=== PATIENT | male | born 1950 | race Caucasian/White ===

== ENCOUNTER 2020-12-24 16:35 | Emergency (ER) | payer MEDICARE, SELFPAY ==
--- NOTE | 2020-12-24 | ECG_ITS ---
Test Reason : REPEAT 2 Blood Pressure : / mmHG Vent. Rate : 077 BPM Atrial Rate : 077 BPM P-R Int : 222 ms QRS Dur : 116 ms QT Int : 420 ms P-R-T Axes : 000 -04 018 degrees QTc Int : 475 ms Atrial flutter 3:1 block Anterior infarct (cited on or before 24-DEC-2020) Abnormal ECG When compared with ECG of 24-DEC-2020 16:55, No significant change was found Referred By: Maria Esther Brown Electronically Signed By:Gerald Santiago
--- NOTE | ~2020-12-24 | XR_ITS ---
EXAMINATION: XR RIBS, LEFT CLINICAL INFORMATION: Chest pain. Fall on left side of chest COMPARISON: None TECHNIQUE: Frontal view of chest 4 views of the left ribs were obtained. FINDINGS: Lungs are clear. No consolidation, pneumothorax, or pleural effusion. The cardiomediastinal silhouette and pulmonary vasculature are normal. Osseous structures are unremarkable. Ribs are intact. No fractures are identified. XR/XR ribs LT min 3V w CXR1V IMPRESSION: Unremarkable examination.
[2020-12-24 16:40] VITALS: BP 138/65; PULSE 76; RESP 18; TEMP 36.6; O2SAT 99; BMI 30.8
--- NOTE | 2020-12-24 16:40 | ECG_ITS ---
Test Reason : CHEST PAIN Blood Pressure : / mmHG Vent. Rate : 072 BPM Atrial Rate : 234 BPM P-R Int : 000 ms QRS Dur : 120 ms QT Int : 430 ms P-R-T Axes : -84 -13 026 degrees QTc Int : 470 ms Atrial flutter with variable A-V block Normal axis Poor R wave progression - cannot rule out anterior infarct. Abnormal ECG No previous ECGs available Referred By: Floresita Grayson Electronically Signed By:Gerald Santiago
--- NOTE | 2020-12-24 16:42 | ED_ITS ---
HPI - Chest Pain General Chief Complaint: Chest Pain <MER El - Last Filed: 12/24/20 16:56> Stated Complaint: chest pain <MER El - Last Filed: 12/24/20 16:56> Time Seen by Provider: 12/24/20 16:39 <MER El - Last Filed: 12/24/20 16:56> Source: patient and family <Maria Esther Brown DO - Last Filed: 12/24/20 20:50> Mode of arrival: ambulatory <Maria Esther Brown DO - Last Filed: 12/24/20 20:50> Limitations: no limitations <Maria Esther Brown DO - Last Filed: 12/24/20 20:50> History of Present Illness HPI narrative: 70 yo male with afib on xarelto, DM, schizophrenia here with L sided CWP after mechanical fall 2 days ago has no SOB/nausea, no other injuries reported <Maria Esther Brown DO - Last Filed: 12/24/20 20:50> MD complaint: chest pain <Maria Esther Brown DO - Last Filed: 12/24/20 20:50> Onset (ago): day(s) (2) <Maria Esther Brown DO - Last Filed: 12/24/20 20:50> Timing of current episode: constant <Maria Esther Brown DO - Last Filed: 12/24/20 20:50> Prior episodes: No <Maria Esther Brown DO - Last Filed: 12/24/20 20:50> Onset: other (after a fall onto L ribs) <Maria Esther Brown DO - Last Filed: 12/24/20 20:50> Pain location: left chest <Maria Esther Brown DO - Last Filed: 12/24/20 20:50> Pain radiation: none <Maria Esther Brown DO - Last Filed: 12/24/20 20:50> Severity: moderate <Maria Esther Brown DO - Last Filed: 12/24/20 20:50> Quality: aching and heaviness <Maria Esther Brown DO - Last Filed: 12/24/20 20:50> Relieving factors: nothing <Maria Esther Brown DO - Last Filed: 12/24/20 20:50> Exacerbating factors: movement (if he tries to move particularly if he is laying down) <Maria Esther Brown DO - Last Filed: 12/24/20 20:50> Context: trauma/injury <Maria Esther Brown DO - Last Filed: 12/24/20 20:50> Treatment prior to arrival: none <Maria Esther Brown DO - Last Filed: 12/24/20 20:50> Related Data Allergies/Adverse Reactions: Allergies Allergy/AdvReac Type Severity Reaction Status Date / Time No Known Allergies Allergy Verified 12/24/20 16:40 <MER El - Last Filed: 12/24/20 16:56> Review of Systems Review of Systems: Constitutional : No Weight loss, No Fever, No Chills ENT/Mouth : No sore throat, No Rhinorrhea Eyes: No Eye Pain, No Swelling Cardiovascular : pos Chest Pain, no SOB, no Dyspnea on Exertion, No Orthopnea, No Edema, No Palpitations Respiratory : No Cough, No Sputum Gastrointestinal : no Nausea, No Vomiting, No Diarrhea, No abdominal Pain, No Hematochezia, No Melena Genitourinary : No Dysuria, No Urinary Frequency Musculoskeletal : No joint pain, No Myalgias, No Joint Swelling Skin : No Skin Lesions, No rash Neuro : No Weakness, No Numbness, No Dizziness, No Headache Psych : No Anxiety/Panic, No Depression Heme/Lymph: No Bruising, No Lymphadenopathy Endocrine : No Polyuria, No Polydipsia All other systems reviewed and are negative <Maria Esther Brown DO - Last Filed: 12/24/20 20:50> [facility] Past Medical History Attestation statement: The following information was validated with the patient. <Maria Esther Brown DO - Last Filed: 12/24/20 20:50> Medical History: Medical History Afib Diabetes type 2, controlled Schizophrenia <MER El - Last Filed: 12/24/20 16:56> Social History Social History: Social History (Updated 12/24/20 @ 17:09 by Maria Esther Brown DO) Alcohol intake: never Smoking Status: Never smoker Use of substances other than those prescribed or required for medical reasons: No Advance Directives: No Advance Directives Information Provided: No <MER El - Last Filed: 12/24/20 16:56> Physical Exam Vital Signs: Vital Signs: Last Vital Signs Temp 98.1 F 12/24/20 19:57 Pulse 62 12/24/20 19:57 Resp 18 12/24/20 19:57 BP 124/86 12/24/20 19:57 Pulse Ox 98 12/24/20 19:57 Body Mass Index 30.8 <MER El - Last Filed: 12/24/20 16:56> Vital Signs: Last Vital Signs Temp 98.1 F 12/24/20 19:57 Pulse 62 12/24/20 19:57 Resp 18 12/24/20 19:57 BP 124/86 12/24/20 19:57 Pulse Ox 98 12/24/20 19:57 Body Mass Index 30.8 <Maria Esther Brown DO - Last Filed: 12/24/20 20:50> Appearance: Alert. Oriented X3. No acute distress. Eyes: Pupils equal, round and reactive to light. ENT: Pharynx normal. Neck: Normal inspection. Neck supple. CVS: irregular heart rate and rhythm. Pulses normal. Respiratory: No respiratory distress. Breath sounds normal. Chest: small contusion left lateral ribs, ttp along L chest wall that reproduces pain Abdomen: Soft and nontender. Skin: Skin warm and dry. Normal skin color. Normal skin turgor. Extremities: No lower extremity edema. No calf ttp Neuro: Oriented X 3. No motor deficit. No sensory deficit. <Maria Esther Brown DO - Last Filed: 12/24/20 20:50> Course Course Course Narrative: 70yo M w/PMHx schizophrenia, A. fib on Xarelto, DM, HLD, c/o L sided CP/LUQ pain x2 days. Hx obtained from , also had fall 2 days ago on L side, denies head trauma or LOC. EKG, Labs, CXR ordered This is a rapid medical assessment in triage. Full H&P will be performed by ED provider EKG concerning in triage, pt brought back immediately to main ED <MER El Last Filed: 12/24/20 16:56> call to Cardiology Dr. Santiago 5pm no STEMI at this time will obtain workup and repeat EKG in 15 minutes repeat troponin flat at this time stable for DC <Maria Esther Brown DO - Last Filed: 12/24/20 20:50> MDM - Chest Pain MDM Narrative Medical decision making narrative: 70 yo male with DM, afib on xarelto, schizophrenia comes in with 2 days of L sided CWP after falling and hitting ribs, no associated dyspnea/nausea, compl iant with his xarelto - he has reproduceable CWP at this time will need labs, call to Cardiology given abnormal EKG but I am not convinced this is a STEMI but seems more MSK at this time. troponin will be needed for 2 days of pain <Maria Esther Brown DO - Last Filed: 12/24/20 20:50> Lab Data Result diagrams: : 12/24/20 16:58 12/24/20 16:58 <MER El - Last Filed: 12/24/20 16:56> Labs: Lab Results 12/24/20 12/24/20 12/24/20 Range/Units 16:58 16:58 16:58 WBC 6.6 (4.8-10.8) X10*3/uL RBC 4.77 (4.60-5.80) X10*6/uL Hgb 13.7 L (14.0-18.0) g/dl Hct 41.2 L (42-52) % MCV 86.4 (80-98) fL MCH 28.7 (27.0-33.0) pg MCHC 33.3 (31.0-36.0) g/dl RDW 13.2 (11.0-16.0) % Plt Count 170 (160-400) X10*3/uL MPV 9.0 L (9.4-12.4) fL Immature Gran % (Auto) 0.3 (0.0-0.4) % Neut % (Auto) 58.3 (45-73) % Lymph % (Auto) 27.6 (20-40) % [place] % (Auto) 10.9 (2-11) % Eos % (Auto) 2.6 (0-4) % Baso % (Auto) 0.3 (0-2) % Lymph # (Auto) 1.8 (1.2-4.9) X10*3/uL [place] # (Auto) 0.7 (0.1-1.2) X10*3/uL Eos # (Auto) 0.2 (0.0-0.4) X10*3/uL Baso # (Auto) 0.0 (0.0-0.2) X10*3/uL Abs Immat Gran (auto) 0.02 (0.00-0.03) X10*3/uL Absolute Neuts (auto) 3.8 (2.0-8.3) X10*3/uL Absolute Nucleated RBC 0.000 (0.0-0.012) X10*3/uL Nucleated RBC % (auto) 0.0 (0.0-0.2) /100WBC PT 15.2 H (10.8-13.0) SEC INR 1.3 H (0.9-1.1) APTT 36.9 (24.1-38.0) SEC Sodium 139 (135-145) mmol/L Potassium 4.7 (3.3-5.1) mmol/L Chloride 107 (96-108) mmol/L Carbon Dioxide 24 (22-29) mmol/L Anion Gap 13 (12-20) BUN 26 H (9-16) mg/dL Creatinine 1.08 (0.5-1.4) mg/dL Estim Creat Clear Calc 82.4 Estimated GFR > 60 POC Glucose (60-115) mg/dL Random Glucose 153 H (60-115) mg/dL Calcium 9.6 (8.4-10.2) mg/dL Magnesium 2.1 (1.6-2.6) mg/dL Total Bilirubin 1.2 H (0.0-1.0) mg/dL Direct Bilirubin 0.3 (0.0-0.5) mg/dL AST 26 (5-37) U/L ALT 27 (0-40) U/L Alkaline Phosphatase 74 (39-117) U/L Troponin I High Sens (<3.5-35.0) ng/L B-Natriuretic Peptide (<100) pg/mL Total Protein 6.9 (6.5-8.0) g/dL Albumin 4.1 (3.5-5.0) g/dL Lipase 56 (8-78) U/L 12/24/20 12/24/2012/24/21 Range/Units 16:58 19:03 19:57 WBC (4.8-10.8) X10*3/uL RBC (4.60-5.80) X10*6/uL Hgb (14.0-18.0) g/dl Hct (42-52) % MCV (80-98) fL MCH (27.0-33.0) pg MCHC (31.0-36.0) g/dl RDW (11.0-16.0) % Plt Count (160-400) X10*3/uL MPV (9.4-12.4) fL Immature Gran % (Auto) (0.0-0.4) % Neut % (Auto) (45-73) % Lymph % (Auto) (20-40) % [place] % (Auto) (2-11) % Eos % (Auto) (0-4) % Baso % (Auto) (0-2) % Lymph # (Auto) (1.2-4.9) X10*3/uL [place] # (Auto) (0.1-1.2) X10*3/uL Eos # (Auto) (0.0-0.4) X10*3/uL Baso # (Auto) (0.0-0.2) X10*3/uL Abs Immat Gran (auto) (0.00-0.03) X10*3/uL Absolute Neuts (auto) (2.0-8.3) X10*3/uL Absolute Nucleated RBC (0.0-0.012) X10*3/uL Nucleated RBC % (auto) (0.0-0.2) /100WBC PT (10.8-13.0) SEC INR (0.9-1.1) APTT (24.1-38.0) SEC Sodium (135-145) mmol/L Potassium (3.3-5.1) mmol/L Chloride (96-108) mmol/L Carbon Dioxide (22-29) mmol/L Anion Gap (12-20) BUN (9-16) mg/dL Creatinine (0.5-1.4) mg/dL Estim Creat Clear Calc Estimated GFR POC Glucose 98 (60-115) mg/dL Random Glucose (60-115) mg/dL Calcium (8.4-10.2) mg/dL Magnesium (1.6-2.6) mg/dL Total Bilirubin (0.0-1.0) mg/dL Direct Bilirubin (0.0-0.5) mg/dL AST (5-37) U/L ALT (0-40) U/L Alkaline Phosphatase (39-117) U/L Troponin I High Sens 26.4 29.8 (<3.5-35.0) ng/L B-Natriuretic Peptide 110 H (<100) pg/mL Total Protein (6.5-8.0) g/dL Albumin (3.5-5.0) g/dL Lipase (8-78) U/L <MER El - Last Filed: 12/24/20 16:56> Lab Results 12/24/20 12/24/20 12/24/20 Range/Units 16:58 16:58 16:58 WBC 6.6 (4.8-10.8) X10*3/uL RBC 4.77 (4.60-5.80) X10*6/uL Hgb 13.7 L (14.0-18.0) g/dl Hct 41.2 L (42-52) % MCV 86.4 (80-98) fL MCH 28.7 (27.0-33.0) pg MCHC 33.3 (31.0-36.0) g/dl RDW 13.2 (11.0-16.0) % Plt Count 170 (160-400) X10*3/uL MPV 9.0 L (9.4-12.4) fL Immature Gran % (Auto) 0.3 (0.0-0.4) % Neut % (Auto) 58.3 (45-73) % Lymph % (Auto) 27.6 (20-40) % [place] % (Auto) 10.9 (2-11) % Eos % (Auto) 2.6 (0-4) % Baso % (Auto) 0.3 (0-2) % Lymph # (Auto) 1.8 (1.2-4.9) X10*3/uL [place] # (Auto) 0.7 (0.1-1.2) X10*3/uL Eos # (Auto) 0.2 (0.0-0.4) X10*3/uL Baso # (Auto) 0.0 (0.0-0.2) X10*3/uL Abs Immat Gran (auto) 0.02 (0.00-0.03) X10*3/uL Absolute Neuts (auto) 3.8 (2.0-8.3) X10*3/uL Absolute Nucleated RBC 0.000 (0.0-0.012) X10*3/uL Nucleated RBC % (auto) 0.0 (0.0-0.2) /100WBC PT 15.2 H (10.8-13.0) SEC INR 1.3 H (0.9-1.1) APTT 36.9 (24.1-38.0) SEC Sodium 139 (135-145) mmol/L Potassium 4.7 (3.3-5.1) mmol/L Chloride 107 (96-108) mmol/L Carbon Dioxide 24 (22-29) mmol/L Anion Gap 13 (12-20) BUN 26 H (9-16) mg/dL Creatinine 1.08 (0.5-1.4) mg/dL Estim Creat Clear Calc 82.4 Estimated GFR > 60 POC Glucose (60-115) mg/dL Random Glucose 153 H (60-115) mg/dL Calcium 9.6 (8.4-10.2) mg/dL Magnesium 2.1 (1.6-2.6) mg/dL Total Bilirubin 1.2 H (0.0-1.0) mg/dL Direct Bilirubin 0.3 (0.0-0.5) mg/dL AST 26 (5-37) U/L ALT 27 (0-40) U/L Alkaline Phosphatase 74 (39-117) U/L Troponin I High Sens (<3.5-35.0) ng/L B-Natriuretic Peptide (<100) pg/mL Total Protein 6.9 (6.5-8.0) g/dL Albumin 4.1 (3.5-5.0) g/dL Lipase 56 (8-78) U/L 12/24/20 12/24/20 12/24/20 Range/Units 16:58 19:03 19:57 WBC (4.8-10.8) X10*3/uL RBC (4.60-5.80) X10*6/uL Hgb (14.0-18.0) g/dl Hct (42-52) % MCV (80-98) fL MCH (27.0-33.0) pg MCHC (31.0-36.0) g/dl RDW (11.0-16.0) % Plt Count (160-400) X10*3/uL MPV (9.4-12.4) fL Immature Gran % (Auto) (0.0-0.4) % Neut % (Auto) (45-73) % Lymph % (Auto) (20-40) % [place] % (Auto) (2-11) % Eos % (Auto) (0-4) % Baso % (Auto) (0-2) % Lymph # (Auto) (1.2-4.9) X10*3/uL [place] # (Auto) (0.1-1.2) X10*3/uL Eos # (Auto) (0.0-0.4) X10*3/uL Baso # (Auto) (0.0-0.2) X10*3/uL Abs Immat Gran (auto) (0.00-0.03) X10*3/uL Absolute Neuts (auto) (2.0-8.3) X10*3/uL Absolute Nucleated RBC (0.0-0.012) X10*3/uL Nucleated RBC % (auto) (0.0-0.2) /100WBC PT (10.8-13.0) SEC INR (0.9-1.1) APTT (24.1-38.0) SEC Sodium (135-145) mmol/L Potassium (3.3-5.1) mmol/L Chloride (96-108) mmol/L Carbon Dioxide (22-29) mmol/L Anion Gap (12-20) BUN (9-16) mg/dL Creatinine (0.5-1.4) mg/dL Estim Creat Clear Calc Estimated GFR POC Glucose 98 (60-115) mg/dL Random Glucose (60-115) mg/dL Calcium (8.4-10.2) mg/dL Magnesium (1.6-2.6) mg/dL Total Bilirubin (0.0-1.0) mg/dL Direct Bilirubin (0.0-0.5) mg/dL AST (5-37) U/L ALT (0-40) U/L Alkaline Phosphatase (39-117) U/L Troponin I High Sens 26.4 29.8 (<3.5-35.0) ng/L B-Natriuretic Peptide 110 H (<100) pg/mL Total Protein (6.5-8.0) g/dL Albumin (3.5-5.0) g/dL Lipase (8-78) U/L <Maria Esther Brown DO - Last Filed: 12/24/20 20:50> ECG Data ECG #1: Attestation: I personally reviewed and interpreted this ECG as follows: <Maria Esther Brown DO - Last Filed: 12/24/20 20:50> ECG interpretation date: 12/24/20 <Maria Esther Brown DO - Last Filed: 12/24/20 20:50> ECG interpretation time: 17:06 <Maria Esther Brown DO - Last Filed: 12/24/20 20:50> Interpretation: Rate: 72 Rhythm: aflutter variable [place]: left. Poor R wave progression ST T wave : tall T waves in V1-V3, no ST depression, non specific qTC: normal prior studies: none available The study has been interpreted contemporaneously by me. . <Maria Esther Brown - Last Filed: 12/24/20 20:50> ECG #2: Attestation: I personally reviewed and interpreted this ECG as follows: <Maria Esther Brown DO - Last Filed: 12/24/20 20:50> ECG interpretation date: 12/24/20 <Maria Esther Brown - Last Filed: 12/24/20 20:50> ECG interpretation time: 17:24 <Maria Esther Brown DO - Last Filed: 12/24/20 20:50> Interpretation: Rate: 77 Rhythm: aflutter with variable Pandora: left poor R wave progression ST T wave : T waves tall V1-V3 qTC: normal prior studies: no change The study has been interpreted contemporaneously by me. . <Maria Esther Brown DO - Last Filed: 12/24/20 20:50> Discharge Plan Discharge Clinical Impression: Atypical chest pain Contusion of rib Qualifiers: Encounter type: initial encounter Laterality: left Qualified Code(s): S20.212A - Contusion of left front wall of thorax, initial encounter <MER El - Last Filed: 12/24/20 16:56> Patient Disposition: Home, Self-Care <MER El - Last Filed: 12/24/20 16:56> Instructions: Rib Contusion (ED) <MER El - Last Filed: 12/24/20 16:56> Additional Instructions: return to ED for any worsening symptoms or concerns <MER El - Last Filed: 12/24/20 16:56> Referrals: Vinnie Barrera MD [Primary Care Provider] - 2 days (if not better) <MER El - Last Filed: 12/24/20 16:56>
[2020-12-24 17:01] LABS: MANUAL DIFF FLAG NO
[2020-12-24 17:04] LABS: Basophils Percent Auto 0.3 % (0-2); Eosinophils Absolute Auto 0.2 X10*3/uL (0.0-0.4); Eosinophils Percent Auto 2.6 % (0-4); Hematocrit 41.2 % (42-52); Hemoglobin 13.7 g/dl (14.0-18.0); Imm Gran Abs Auto 0.02 X10*3/uL (0.00-0.03); Imm Gran Pct Auto 0.3 % (0.0-0.4); Lymphocytes Absolute Auto 1.8 X10*3/uL (1.2-4.9); Lymphocytes Percent Auto 27.6 % (20-40); Mean Corpuscular HGB Conc 33.3 g/dl (31.0-36.0); Mean Corpuscular Hemoglobin 28.7 pg (27.0-33.0); Mean Corpuscular Volume 86.4 fL (80-98); Monocytes Absolute Auto 0.7 X10*3/uL (0.1-1.2); Monocytes Percent Auto 10.9 % (2-11); Neutrophils Absolute Auto 3.8 X10*3/uL (2.0-8.3); Neutrophils Percent Auto 58.3 % (45-73); Platelet Count 170 X10*3/uL (160-400); Red Blood Count 4.77 X10*6/uL (4.60-5.80); Red Cell Distribution Width 13.2 % (11.0-16.0); White Blood Count 6.6 X10*3/uL (4.8-10.8)
[2020-12-24 17:10] LABS: INTERNATIONAL NORM RATIO 1.3 (0.9-1.1); Prothrombin Time 15.2 SEC (10.8-13.0)
[2020-12-24 17:13] LABS: Partial Thromboplastin Time 36.9 SEC (24.1-38.0)
[2020-12-24 17:15] VITALS: RESP 18
[2020-12-24] MEDS: Morphine Sulfate 4 MG/ML CARTRIDGE IVPUSH (17:15)
[2020-12-24 17:46] LABS: Alanine Aminotransferase 27 U/L (0-40); Albumin Level 4.1 g/dL (3.5-5.0); Alkaline Phosphatase 74 U/L (39-117); Anion Gap 13 (12-20); Aspartate Amino Transferase 26 U/L (5-37); B Type Natriuretic Peptide 110 pg/mL (<100); Bilirubin Direct 0.3 mg/dL (0.0-0.5); Bilirubin Total 1.2 mg/dL (0.0-1.0); Blood Urea Nitrogen 26 mg/dL (9-16); Calcium 9.6 mg/dL (8.4-10.2); Carbon Dioxide 24 mmol/L (22-29); Chloride 107 mmol/L (96-108); Creatinine Clr Calc Pharmacy 82.4; Estimated Glomerular Filt Rate > 60; Glucose Random 153 mg/dL (60-115); Lipase 56 U/L (8-78); Magnesium 2.1 mg/dL (1.6-2.6); Potassium 4.7 mmol/L (3.3-5.1); Sodium 139 mmol/L (135-145); Total Protein 6.9 g/dL (6.5-8.0); Troponin-I High Sensitivity 26.4 ng/L (<3.5-35.0)
[2020-12-24 19:06] LABS: Glucose, Whole Blood 98 mg/dL (60-115)
--- NOTE | 2020-12-24 19:07 | PC.NURSE ---
PT RESTING IN STRETCH, DENIES COMPLAINTS. REPEAT POC - 98. PT DENIES CP OR SOB AT THIS TIME. FAMILY AT BEDSIDE WITH PT. PT ALERT, RESPIRATIONS EASY, N/L. SKIN W/D. WILL CONTINUE TO MONITOR PT.
[2020-12-24 19:57] VITALS: BP 124/86; PULSE 62; RESP 18; TEMP 36.7; O2SAT 98
[2020-12-24 20:39] LABS: Troponin-I High Sensitivity 29.8 ng/L (<3.5-35.0)
== END 2020-12-24 21:06 | disposition home or self-care (01) ==
PROVIDERS: Physician Assistant; Emergency Provider Emergency Medicine; PCP Internal Medicine
DX: R07.89 Other chest pain (principal); S20.212A Contusion of left front wall of thorax, initial encounter; W01.0XXA Fall on same level from slipping, tripping and stumbling without subsequent striking against object, initial encounter; I48.91 Unspecified atrial fibrillation; Z79.01 Long term (current) use of anticoagulants; E11.9 Type 2 diabetes mellitus without complications; Y93.9 Activity, unspecified; Y92.019 Unspecified place in single-family (private) house as the place of occurrence of the external cause; Y99.9 Unspecified external cause status
CPT/HCPCS: 36415; 71101; 80048; 80076; 82947; 83690; 83735; 83880; 84484; 85025; 85610; 85730; 93005; 96374; 99284; 99285; J2270

== ENCOUNTER 2021-01-27 13:33 | Emergency (ER) | payer MEDICARE, SELFPAY ==
--- NOTE | ~2021-01-27 | XR_ITS ---
EXAMINATION: XR ELBOW, LEFT CLINICAL INFORMATION: Fall, wound COMPARISON: None TECHNIQUE: AP, lateral, and oblique views of the left elbow. FINDINGS: No acute fracture or dislocation. There is a soft tissue defect overlying the olecranon. No radiopaque foreign body. XR/XR elbow LT min 3V IMPRESSION: No fracture or radiopaque foreign body.
--- NOTE | ~2021-01-27 | CT_ITS ---
EXAMINATION: CT HEAD WITHOUT CONTRAST, CT CERVICAL SPINE WITHOUT CONTRAST CLINICAL INFORMATION: Fall. On Xarelto. COMPARISON: None. TECHNIQUE: Multidetector CT examination of the head is performed without contrast. Multidetector CT of the cervical spine without contrast. Multiplanar postprocessing This CT examination was performed using dose optimization techniques as appropriate, variously including the following: *Automated exposure control *Adjustment of mA and/or kV according to patient size (this includes techniques or standardized protocols for targeted exams where dose is matched to indication/reason for exam; i.e. extremities or head) *Use of iterative reconstruction technique DLP: 819 mGy-cm FINDINGS: Head CT: There is no evidence of a recent intracranial hemorrhage or extra-axial collection. The midline structures are nondisplaced. The ventricles, cisterns, and sulci are within normal limits. There is no evidence of an intra-axial mass. There are no suspicious focal areas of abnormal brain attenuation. The de santiago-white interface is within normal limits. There is no evidence of acute territorial infarct. The paranasal sinuses and mastoids are within normal limits. Calcified lesion in the left frontal scalp is not related to trauma and has no aggressive features Cervical CT: No acute cervical fracture or subluxation. No focal lesion or loss of volume. There is disc narrowing and marginal osteophyte and facet disease. This causes canal and foraminal narrowing. No suspicious abnormality in the visualized apex of the chest CT/CT cervical spine wo con IMPRESSION: 1. There is no evidence of a recent intracranial hemorrhage. 2. No acute infarct. 3. No acute fracture or subluxation of the cervical spine Degenerative changes in the cervical spine
[2021-01-27 15:30] VITALS: BP 106/65; PULSE 67; RESP 20; TEMP 37.1; O2SAT 98; BMI 38.0
--- NOTE | 2021-01-27 15:33 | ED.FALL ---
HPI - Fall General Chief Complaint: Fall Stated Complaint: pt fell Time Seen by Provider: 01/27/21 15:32 Source: patient and family Mode of arrival: ambulatory Limitations: no limitations History of Present Illness HPI Narrative: 70 y/o male with history of afib on Xarelto presents to the ER with left elbow laceration and abrasions to the upper arm after he fell just prior to arrival. He was opening a bucket of chlorine when his hand slipped and he fell onto his left arm onto motorcycle ramp and then the cement. He denies hitting his head or losing consciousness. He has a deep laceration to his left elbow and multiple abrasions to his left upper arm. He is able to full extend and bend his elbow without and pain. No active bleeding. No numbness, tingling or weakness in his left arm. No chest pain, SOB, lightheadedness or dizziness prior to the fall. MD complaint: fall Onset (ago): hour(s) Fall from: standing Fall witnessed: no Place fall occurred: home Loss of consciousness: none Prolonged down time: no Symptoms prior to fall: none Context: tripped/slipped Location of injury - extremities: left: arm and elbow Severity: moderate Quality: aching Associated symptoms (after fall): denies Related Data Previous Rx's Medication Instructions Recorded cephalexin 500 mg PO TID 5 Days #15 cap 01/27/21 Allergies Allergy/AdvReac Type Severity Reaction Status Date / Time No Known Allergies Allergy Verified 12/24/20 16:40 Review of Systems Review of Systems: Constitutional: No Fever, No Chills Eyes: No Eye Pain, No Swelling Cardiovascular: No Chest Pain, No SOB Respiratory: No Cough, No Sputum Gastrointestinal: No Nausea, No Vomiting, No Diarrhea, No abdominal Pain Musculoskeletal: + joint pain, + Myalgias Skin: + Skin Lesions, No rash Neuro: No Weakness, No Numbness, No Dizziness, No Headache Psych: No Anxiety/Panic, No Depression Heme/Lymph: + Bruising, No Lymphadenopathy PMFSH Past Medical History Attestation statement: The following information was validated with the patient. Medical History Afib Diabetes type 2, controlled Schizophrenia Social History Social History (Updated 12/24/20 @ 17:09 by Maria Esther [place], DO) Alcohol intake: never Smoking Status: Never smoker Advance Directives: No Advance Directives Information Provided: Yes Physical Exam Vital Signs: Vital Signs: Last Vital Signs Temp 98.8 F 01/27/21 15:30 Pulse 67 01/27/21 15:30 Resp 20 01/27/21 15:30 BP 106/65 01/27/21 15:30 Pulse Ox 98 01/27/21 15:30 Body Mass Index 38.0 Appearance: Alert. Oriented X3. No acute distress. Head: normocephalic, small streak of dried blood on his forehead without underlying abrasion Neck: no cervical spinal tenderness, no deformity Eyes: Pupils equal, round and reactive to light. ENT: Pharynx normal. Neck: Normal inspection. Neck supple. CVS: irregularly irregular Pulses normal. Respiratory: No respiratory distress. Breath sounds normal. Abdomen: Soft and nontender. +BS x4 Skin: Skin warm and dry. Normal skin color. Normal skin turgor. No rashes. Extremities: Left upper arm with superficial abrasions in linear pattern from upper portion to just above elbow with underlying hematoma, slightly tender. left elbow with laceration with flap with irregular borders. No lower extremity edema. Neuro: Oriented X 3. No motor deficit. No sensory deficit. Course Course Course Narrative: 70 yo male with history of afib on Xarleto presenting with left upper arm and elbow pain after he lost his balance and fell while trying to open a bucket of chlorine just [employer]. He denies hitting his head or losing consciousness but has small amount of blood on his forehead. Superficial lac to left elbow, full ROM. NV intact distall. Hematomas to upper arm. Will get CT head/C-spine, labs and EKG. Vitals are stable. Reevaluation(s) Reevaluation #1: Lab workup ok, EKG alutter. CT head/C-spine are negative. Procedures Laceration Laceration 1: Side (If applicable): left Description: flap Depth: simple, single layer Local Anesthetic: lidocaine 2% Amount of anesthesia used (mL): 3 Pre-repair: irrigated extensively, deep structures intact and wound margins revised Skin layer closed with: nylon Size (cm): 4-0 Number of sutures: 5 Technique: simple, interrupted MDM - Fall Medical Records Attestation: I reviewed the patient's medical records. Lab Data Attestation: I reviewed the patient's lab results. Result diagrams: 01/27/21 16:16 01/27/21 16:16 Labs: Lab Results 01/27/21 01/27/21 01/27/21 Range/Units 16:16 16:16 16:16 WBC 6.8 (4.8-10.8) X10*3/uL RBC 4.62 (4.60-5.80) X10*6/uL Hgb 13.4 L (14.0-18.0) g/dl Hct 40.5 L (42-52) % MCV 87.7 (80-98) fL MCH 29.0 (27.0-33.0) pg MCHC 33.1 (31.0-36.0) g/dl RDW 13.3 (11.0-16.0) % Plt Count 181 (160-400) X10*3/uL MPV 9.2 L (9.4-12.4) fL Immature Gran % (Auto) 0.3 (0.0-0.4) % Neut % (Auto) 58.5 (45-73) % Lymph % (Auto) 28.3 (20-40) % [place] % (Auto) 9.4 (2-11) % Eos % (Auto) 3.2 (0-4) % Baso % (Auto) 0.3 (0-2) % Lymph # (Auto) 1.9 (1.2-4.9) X10*3/uL [place] # (Auto) 0.6 (0.1-1.2) X10*3/uL Eos # (Auto) 0.2 (0.0-0.4) X10*3/uL Baso # (Auto) 0.0 (0.0-0.2) X10*3/uL Abs Immat Gran (auto) 0.02 (0.00-0.03) X10*3/uL Absolute Neuts (auto) 4.0 (2.0-8.3) X10*3/uL Absolute Nucleated RBC 0.000 (0.0-0.012) X10*3/uL Nucleated RBC % (auto) 0.0 (0.0-0.2) /100WBC PT 16.2 H (10.8-13.0) SEC INR 1.4 H (0.9-1.1) APTT 38.9 H (24.1-38.0) SEC Sodium 137 (135-145) mmol/L Potassium 4.6 (3.3-5.1) mmol/L Chloride 105 (96-108) mmol/L Carbon Dioxide 22 (22-29) mmol/L Anion Gap 15 (12-20) BUN 31 H (9-16) mg/dL Creatinine 0.93 (0.5-1.4) mg/dL Estim Creat Clear Calc 100.3 Estimated GFR > 60 Random Glucose 105 (60-115) mg/dL Calcium 10.0 (8.4-10.2) mg/dL ECG Data Attestation: I personally reviewed and interpreted this ECG as follows: ECG interpretation date: 01/27/21 ECG interpretation time: 18:26 Prior ECG tracings: available for review Interpretation: atrial flutter, HR 66 bpm, No ST segment elevations, T-wave inversions in inferior leads no longer present Discharge Plan Discharge Clinical Impression: Laceration Contusion of left upper arm Qualifiers: Encounter type: initial encounter Qualified Code(s): S40.022A - Contusion of left upper arm, initial encounter Patient Disposition: Home, Self-Care Instructions: Laceration (ED) Additional Instructions: Your CT scans were negative today. Elbow x-ray was normal. Your lab workup was normal. Five sutures were placed in the wound in your left elbow. They will need to be removed in 8-10 days. Do not get wet for 24 hours, then you can briefly wash with soap and water then pat dry. Use bacitracin or Neosporin 1-2 times per day. Keep clean and covered. Use ice and elevate your arm when possible. If you develop redness, warmth, swelling or inability to bend or extend your elbow come back to the ER right away for further evaluation. Follow up with your doctor as needed. Prescriptions: New cephalexin 500 mg capsule 500 mg PO TID 5 Days Qty: 15 RF: 0
--- NOTE | 2021-01-27 15:35 | ECG_ITS ---
Test Reason : FALL Blood Pressure : / mmHG Vent. Rate : 066 BPM Atrial Rate : 227 BPM P-R Int : 000 ms QRS Dur : 110 ms QT Int : 454 ms P-R-T Axes : 256 -24 041 degrees QTc Int : 475 ms Atrial flutter with variable A-V block Anterior infarct (cited on or before 24-DEC-2020) Abnormal ECG When compared with ECG of 24-DEC-2020 17:18, No significant changes seen Referred By: Nikki Andrews Electronically Signed By:GALINA BANKS
[2021-01-27 16:21] LABS: MANUAL DIFF FLAG NO
[2021-01-27 16:30] LABS: Basophils Percent Auto 0.3 % (0-2); Eosinophils Absolute Auto 0.2 X10*3/uL (0.0-0.4); Eosinophils Percent Auto 3.2 % (0-4); Hematocrit 40.5 % (42-52); Hemoglobin 13.4 g/dl (14.0-18.0); INTERNATIONAL NORM RATIO 1.4 (0.9-1.1); Imm Gran Abs Auto 0.02 X10*3/uL (0.00-0.03); Imm Gran Pct Auto 0.3 % (0.0-0.4); Lymphocytes Absolute Auto 1.9 X10*3/uL (1.2-4.9); Lymphocytes Percent Auto 28.3 % (20-40); Mean Corpuscular HGB Conc 33.1 g/dl (31.0-36.0); Mean Corpuscular Volume 87.7 fL (80-98); Mean Platelet Volume 9.2 fL (9.4-12.4); Monocytes Absolute Auto 0.6 X10*3/uL (0.1-1.2); Monocytes Percent Auto 9.4 % (2-11); Neutrophils Percent Auto 58.5 % (45-73); Platelet Count 181 X10*3/uL (160-400); Prothrombin Time 16.2 SEC (10.8-13.0); Red Blood Count 4.62 X10*6/uL (4.60-5.80); Red Cell Distribution Width 13.3 % (11.0-16.0); White Blood Count 6.8 X10*3/uL (4.8-10.8)
[2021-01-27 16:56] LABS: Anion Gap 15 (12-20); Blood Urea Nitrogen 31 mg/dL (9-16); Carbon Dioxide 22 mmol/L (22-29); Chloride 105 mmol/L (96-108); Creatinine Clr Calc Pharmacy 100.3; Estimated Glomerular Filt Rate > 60; Glucose Random 105 mg/dL (60-115); Potassium 4.6 mmol/L (3.3-5.1); Sodium 137 mmol/L (135-145)
[2021-01-27 16:57] LABS: Partial Thromboplastin Time 38.9 SEC (24.1-38.0)
[2021-01-27] MEDS: Lidocaine HCl 2 % MPF 5 ML VIAL INFILTRATI (18:33)
== END 2021-01-27 18:37 | disposition home or self-care (01) ==
LOC: HO.ED 18:10
PROVIDERS: Physician Assistant; Emergency Provider Emergency Medicine
DX: S51.012A Laceration without foreign body of left elbow, initial encounter (principal); S40.022A Contusion of left upper arm, initial encounter; M54.2 Cervicalgia; G44.309 Post-traumatic headache, unspecified, not intractable; W01.0XXA Fall on same level from slipping, tripping and stumbling without subsequent striking against object, initial encounter; Y93.9 Activity, unspecified; Y92.410 Unspecified street and highway as the place of occurrence of the external cause; Y99.9 Unspecified external cause status
CPT/HCPCS: 12001; 36415; 70450; 72125; 73080; 80048; 85025; 85610; 85730; 93005; 99284

== ENCOUNTER 2021-02-06 15:34 | Emergency (ER) | payer MEDICARE, SELFPAY ==
[2021-02-06 16:52] VITALS: BP 135/67; PULSE 80; RESP 16; TEMP 36.7; O2SAT 95; BMI 30.8
--- NOTE | 2021-02-06 17:47 | ED_ITS ---
HPI - Wound/Laceration General Chief Complaint: Wound/Laceration Stated Complaint: stitch removal Time Seen by Provider: 02/06/21 17:38 Source: patient Mode of arrival: ambulatory Limitations: no limitations History of Present Illness HPI narrative: Patient is a 70-year-old male on Coumadin who is here to have 5 sutures removed. He had them placed approximately 9 days ago. He denies any malodorous drainage, pain or redness or fevers. Related Data Previous Rx's Medication Instructions Recorded cephalexin 500 mg PO TID 5 Days #15 cap 01/27/21 Allergies Allergy/AdvReac Type Severity Reaction Status Date / Time No Known Allergies Allergy Verified 02/06/21 16:55 Review of Systems Review of Systems: Yes all other systems are reviewed and are negative [facility] Past Medical History Medical History Afib Diabetes type 2, controlled Schizophrenia Social History Social History Alcohol intake: former Advance Directives: No Advance Directives Information Provided: Yes Physical Exam Vital Signs: Vital Signs: Last Vital Signs Temp 98.1 F 02/06/21 16:52 Pulse 80 02/06/21 16:52 Resp 16 02/06/21 16:52 BP 135/67 02/06/21 16:52 Pulse Ox 95 02/06/21 16:52 Body Mass Index 30.8 Const: General: cooperative, healthy appearing, comfortable and no acute distress Nutritional Appearance: average body habitus Orientation/consciousness: patient oriented x3 Skin: Other: Left elbow has well-healed laceration with 5 sutures. No signs of infection noted. No ecchymosis. No drainage. Neuro: General: patient oriented x3 Procedures Procedure Narrative Procedure Narrative: Removed 5 sutures from left elbow, no bleeding, no drainage, no signs of infection noted. Applied Neosporin with bandage. Discharge Plan Discharge Clinical Impression: Encounter for removal of sutures Patient Disposition: Home, Self-Care Instructions: Stitches Removal (ED) Prescriptions: No Action cephalexin 500 mg capsule 500 mg PO TID 5 Days Qty: 15 RF: 0
== END 2021-02-06 18:12 | disposition home or self-care (01) ==
PROVIDERS: Emergency Provider Internal Medicine
DX: Z48.02 Encounter for removal of sutures (principal); S51.012D Laceration without foreign body of left elbow, subsequent encounter; X58.XXXD Exposure to other specified factors, subsequent encounter
CPT/HCPCS: 99283

== ENCOUNTER 2021-07-11 14:41 | Outpatient (REF) | payer MEDICARE, SELFPAY ==
--- NOTE | ~2021-07-11 | XR_ITS ---
EXAMINATION: XR CHEST CLINICAL INFORMATION: Wheezing. COMPARISON: 12/24/2020. TECHNIQUE: 2 views of the chest were obtained. FINDINGS: Normal appearance of the cardiomediastinal silhouette. There is mild interstitial prominence more noticeable in the perihilar regions and right lung base. No dense focal opacities, pleural effusions or pneumothorax. No acute osseous findings. XR/XR chest 2V IMPRESSION: Very mild interstitial prominence slightly more evident than when compared to the study from December which could be seen in the setting of an infectious or inflammatory process of the small airways such as asthma, bronchitis or atypical infections. No lobar opacities, pleural effusions or pneumothorax.
== END 2021-07-11 14:42 | disposition home or self-care (01) ==
LOC: HO.HMGCX 14:41
PROVIDERS: Visit Provider Physician Assistant
DX: R06.2 Wheezing (principal)
CPT/HCPCS: 71046

== ENCOUNTER 2021-08-31 11:57 | Emergency (ER) | payer MEDICARE, SELFPAY ==
--- NOTE | ~2021-08-31 | XR_ITS ---
EXAMINATION: XR CHEST CLINICAL INFORMATION: Fever. COMPARISON: Chest radiograph 07/11/2021 TECHNIQUE: Frontal view of the chest was obtained. FINDINGS: Low lung volumes are present. Normal appearance of the cardiomediastinal structures. No effusions or pneumothoraces. Making allowances for low lung volumes, a normal pattern of pulmonary vasculature is noted and no definitive pulmonary consolidation or groundglass opacities are visualized. XR/XR chest 1V IMPRESSION: *No acute cardiopulmonary abnormalities.
--- NOTE | ~2021-08-31 | XR_ITS ---
EXAMINATION: XR FOOT, RIGHT CLINICAL INFORMATION: Callus. Rule out osteo-. COMPARISON: None TECHNIQUE: AP, lateral, and oblique views of the right foot. FINDINGS: There is no evidence of acute fracture or dislocation of the right foot. Small calcaneal spur at insertion Achilles tendon is noted. Nail in place within the calcaneus. No gas within the soft tissues is appreciated. There is a low-density circumscribed region within the cuboid which may represent cyst. There is some soft tissue prominence seen about the lateral aspect of the fifth metatarsal. No cortical irregularity or periosteal new bone formation is identified about the foot. There is some soft tissue edema about the ankle and dorsum in the region of the metatarsophalangeal joints. XR/XR foot RT 2V IMPRESSION: No definite acute fracture or dislocation of the right foot. Question cuboid cyst. No specific evidence to suggest acute osteomyelitis.
[2021-08-31 12:02] VITALS: BP 128/60; PULSE 79; RESP 16; TEMP 37; O2SAT 99; BMI 33.3
--- NOTE | 2021-08-31 13:54 | ED_ITS ---
HPI - General Adult General Chief complaint: Extremity Injury, Lower Stated complaint: Foot infection Time Seen by Provider: 08/31/21 13:23 Source: patient Mode of arrival: ambulatory History of Present Illness HPI narrative: 71-year-old male with a past medical history of AFib on Xarelto, diabetes, schizophrenia, presenting to the ED complaining of fever T-max 100.4? today, denies given antipyretics [employer], acute on chronic callus to bottom of right foot which has been increasingly painful with ambulation. Also reports acute on chronic worsening bilateral LE pitting edema. Denies chills, chest pain, shortness breath, abdominal pain, nausea/vomiting Onset (ago): day(s) Related Data Home Medications Medication Instructions Recorded Confirmed aripiprazole 20 mg tablet 20 mg PO QPM 07/11/21 atorvastatin 40 mg tablet 40 mg PO DAILY 07/11/21 bupropion HCl 300 mg 24 hr tablet, 300 mg PO DAILY 07/11/21 extended release escitalopram oxalate 10 mg tablet 15 mg PO QAM 07/11/21 lisinopril 2.5 mg tablet 2.5 mg PO DAILY 07/11/21 lorazepam 0.5 mg tablet 0.5 mg PO BID PRN 07/11/21 metformin 500 mg tablet 500 mg PO TID 07/11/21 metoprolol tartrate 25 mg tablet 25 mg PO BID 07/11/21 rivaroxaban 20 mg tablet (Xarelto) 20 mg PO DAILY 07/11/21 Previous Rx's Medication Instructions Recorded cephalexin 500 mg capsule 500 mg PO TID 5 Days #15 cap 01/27/21 azithromycin 250 mg tablet See Rx Instructions PO .COMPLEX #6 07/11/21 tab prednisone 20 mg tablet 40 mg PO DAILY #10 tab 07/11/21 cephalexin 500 mg capsule 500 mg PO QID 7 Days #28 cap 08/31/21 Allergies Allergy/AdvReac Type Severity Reaction Status Date / Time No Known Allergies Allergy Verified 02/06/21 16:55 Review of Systems Review of Systems: Constitutional: +Fever, No Chills, No Fatigue, No Malaise ENT/Mouth: No Ear Pain, No Nasal Congestion, No Sinus Pain, No Hoarseness, No sore throat, No Rhinorrhea Eyes: No Eye Pain, No Swelling, No Redness, No Discharge Cardiovascular: No Chest Pain, No SOB, No Orthopnea, + Edema, No Palpitations Respiratory: No Cough, No Wheezing, No Dyspnea Gastrointestinal: No Nausea, No Vomiting, No Diarrhea, No Constipation, No Abdominal pain Genitourinary: No Dysuria, No Hematuria, No Urgency, No Flank Pain Musculoskeletal: No joint pain, No Myalgias, No Joint Swelling Skin: + Skin Lesions, No rash Neuro: No Weakness, No Numbness, No Dizziness, No Headache Yes all other systems are reviewed and are negative [facility] Past Medical History Attestation statement: The following information was validated with the patient. Medical History Afib Diabetes type 2, controlled Schizophrenia Social History Social History Alcohol intake: former Advance Directives: No Advance Directives Information Provided: No Physical Exam Vital Signs: Vital Signs: Last Vital Signs Temp 98.6 F 08/31/21 12:02 Pulse 79 08/31/21 12:02 Resp 16 08/31/21 12:02 BP 128/60 08/31/21 12:02 Pulse Ox 99 08/31/21 12:02 BMI result Body Mass Index 33.3 Const: General: cooperative, healthy appearing and no acute distress Orientation/consciousness: patient oriented x3 Limitations: no limitations HENMT: Head: Yes normal to inspection Ears: hearing grossly normal bilaterally General nose exam: Normal external nose present Face and sinus: Yes normal facial exam Eyes: General: appearance normal, both eyes and all related structures EOM: EOMs intact bilaterally Neck: Neck: Yes normal visual inspection and Yes no meningeal signs Resp: Effort & Inspection: normal respiratory effort Auscultation: clear to auscultation bilaterally, no rales, no rhonchi and no wheezes Cardio: Rate: regular rate Heart sounds: S1 normal heart sound present and S2 normal heart sound present GI: Inspection: Yes normal to inspection Palpation (GI): Soft to palpation, nontender, no guarding and not rigid Skin: Rashes: no rashes Wounds: no wounds Neuro: General: patient oriented x3, gait normal, tone normal, moves all extremities and no meningeal signs Gait exam (Neuro): Normal gait present Extrem: Other: Refer to image above, noted callus to the bottom of right foot, nontender, no surrounding erythema, no fluctuance/induration. No necrosis +Erythema and warmth noted to mid tib/fib of right lower extremity medial aspect. NV intact distally Bilateral lower extremity pitting edema > left lower extremity (chronic per patient and family) Course Course Course Narrative: -1610--mild leukocytosis of 11.1,. lactice negative, labs otherwise unremarkable. BNP 167 XR foot RT 2V IMPRESSION: No definite acute fracture or dislocation of the right foot. Question cuboid cyst. No specific evidence to suggest acute osteomyelitis XR chest 1V IMPRESSION: *No acute cardiopulmonary abnormalities. -UA negative, COVID-19 negative -no evidence of severe sepsis. Patient given 1st dose of Keflex in the ED for cellulitis. Discussed worrisome signs symptoms and strict return precautions with patient and daughter at bedside, they verbalized understanding feel safe for discharge home at this time Medical Decision Making MDM Narrative Medical decision making narrative: 71-year-old male with a past medical history of AFib on Xarelto, diabetes, schizophrenia, presenting to the ED complaining of fever T-max 100.4? today, denies given antipyretics [employer], acute on chronic callus to bottom of right foot which has been increasingly painful with ambulation. On exam vital signs stable, afebrile, physical exam as above please refer to image. Concern for cellulitis to right lower extremity, callus does not appear infected. Low concern for osteomyelitis. Concern for CHF, lower concern for DVT as patient is anticoagulated Plan: Labs, lactic/blood cultures, CXR, foot x-ray, re-evaluate Medical Records Medical records reviewed: Yes I reviewed the patient's medical records. Lab Data Lab results reviewed: Yes I reviewed the patient's lab results. Result diagrams: 08/31/21 14:17 08/31/21 14:17 Labs: Lab Results 08/31/21 08/31/21 08/31/21 Range/Units 14:17 14:17 14:17 WBC 11.1 H (4.8-10.8) X10*3/uL RBC 4.34 L (4.60-5.80) X10*6/uL Hgb 12.5 L (14.0-18.0) g/dl Hct 38.7 L (42.0-52.0) % MCV 89.2 (80.0-98.0) fL MCH 28.8 (27.0-33.0) pg MCHC 32.3 (31.0-36.0) g/dl RDW 13.5 (11.0-16.0) % Plt Count 149 L (160-400) X10*3/uL MPV 9.1 L (9.4-12.4) fL Immature Gran % (Auto) 0.3 (0.0-0.4) % Neut % (Auto) 79.3 H (45-73) % Lymph % (Auto) 10.8 L (20-40) % Power % (Auto) 8.8 (2-11) % Eos % (Auto) 0.7 (0-4) % Baso % (Auto) 0.1 (0-2) % Lymph # (Auto) 1.2 (1.2-4.9) X10*3/uL Power # (Auto) 1.0 (0.1-1.2) X10*3/uL Eos # (Auto) 0.1 (0.0-0.4) X10*3/uL Baso # (Auto) 0.0 (0.0-0.2) X10*3/uL Abs Immat Gran (auto) 0.03 (0.00-0.03) X10*3/uL Absolute Neuts (auto) 8.8 H (2.0-8.3) x10*3/uL Absolute Nucleated RBC 0.000 (0.0-0.012) X10*3/uL Nucleated RBC % (auto) 0.0 (0.0-0.2) /100WBC Sodium 140 (135-145) mmol/L Potassium 4.7 (3.3-5.1) mmol/L Chloride 106 (96-108) mmol/L Carbon Dioxide 26 (22-29) mmol/L Anion Gap 13 (12-20) BUN 20 H (9-16) mg/dL Creatinine 1.11 (0.5-1.4) mg/dL Estim Creat Clear Calc 82.1 Estimated GFR > 60 Random Glucose 128 H (60-115) mg/dL Lactic Acid 1.8 (0.5-2.0) mmol/L Calcium 9.7 (8.4-10.2) mg/dL Magnesium 2.0 (1.6-2.6) mg/dL Total Bilirubin 0.8 (0.0-1.0) mg/dL Direct Bilirubin 0.4 (0.0-0.5) mg/dL AST 18 (5-37) U/L ALT 26 (0-40) U/L Alkaline Phosphatase 68 (39-117) U/L B-Natriuretic Peptide (<100) pg/mL Total Protein 6.7 (6.5-8.0) g/dL Albumin 4.1 (3.5-5.0) g/dL Urine Color Urine Appearance Urine pH (5.0-8.0) Ur Specific [place] (1.005-1.025) Urine Protein (NEG-TRACE) MG/DL Urine Glucose (UA) (NEG) MG/DL Urine Ketones (NEG) MG/DL Urine Blood (NEG) Urine Nitrite (NEG) Ur Leukocyte Esterase (NEG) COVID-19 (GELY) (Negative) COVID-19 Clin Com 08/31/21 08/31/21 08/31/21 Range/Units 14:17 14:17 16:04 WBC (4.8-10.8) X10*3/uL RBC (4.60-5.80) X10*6/uL Hgb (14.0-18.0) g/dl Hct (42.0-52.0) % MCV (80.0-98.0) fL MCH (27.0-33.0) pg MCHC (31.0-36.0) g/dl RDW (11.0-16.0) % Plt Count (160-400) X10*3/uL MPV (9.4-12.4) fL Immature Gran % (Auto) (0.0-0.4) % Neut % (Auto) (45-73) % Lymph % (Auto) (20-40) % Power % (Auto) (2-11) % Eos % (Auto) (0-4) % Baso % (Auto) (0-2) % Lymph # (Auto) (1.2-4.9) X10*3/uL Power # (Auto) (0.1-1.2) X10*3/uL Eos # (Auto) (0.0-0.4) X10*3/uL Baso # (Auto) (0.0-0.2) X10*3/uL Abs Immat Gran (auto) (0.00-0.03) X10*3/uL Absolute Neuts (auto) (2.0-8.3) x10*3/uL Absolute Nucleated RBC (0.0-0.012) X10*3/uL Nucleated RBC % (auto) (0.0-0.2) /100WBC Sodium (135-145) mmol/L Potassium (3.3-5.1) mmol/L Chloride (96-108) mmol/L Carbon Dioxide (22-29) mmol/L Anion Gap (12-20) BUN (9-16) mg/dL Creatinine (0.5-1.4) mg/dL Estim Creat Clear Calc Estimated GFR Random Glucose (60-115) mg/dL Lactic Acid (0.5-2.0) mmol/L Calcium (8.4-10.2) mg/dL Magnesium (1.6-2.6) mg/dL Total Bilirubin (0.0-1.0) mg/dL Direct Bilirubin (0.0-0.5) mg/dL AST (5-37) U/L ALT (0-40) U/L Alkaline Phosphatase (39-117) U/L B-Natriuretic Peptide 167 H (<100) pg/mL Total Protein (6.5-8.0) g/dL Albumin (3.5-5.0) g/dL Urine Color YELLOW Urine Appearance CLEAR Urine pH 6.0 (5.0-8.0) Ur Specific [place] 1.025 (1.005-1.025) Urine Protein NEG (NEG-TRACE) MG/DL Urine Glucose (UA) NEG (NEG) MG/DL Urine Ketones NEG (NEG) MG/DL Urine Blood NEG (NEG) Urine Nitrite NEG (NEG) Ur Leukocyte Esterase NEG (NEG) COVID-19 (GELY) Invalid (Negative) COVID-19 Clin Com See Note Discharge Plan Discharge Clinical Impression: Cellulitis Qualifiers: Site of cellulitis: extremity Site of cellulitis of extremity: lower extremity Laterality: right Qualified Code(s): L03.115 - Cellulitis of right lower limb Patient Disposition: Home, Self-Care Instructions: Cellulitis (ED) Additional Instructions: Your blood work and imaging studies were reassuring today in the emergency department. You do have cellulitis of your right leg, Keflex as an antibiotic please take as prescribed If symptoms persist or worsen, redness is spreading, you have red streaking up your leg, or develop fevers please return to the ED Please follow-up with your doctor in the next 2-3 days for re-evaluation Elevate your legs. You should wear compression stockings Prescriptions: New cephalexin 500 mg capsule 500 mg PO QID 7 Days Qty: 28 RF: 0 No Action azithromycin 250 mg tablet See Rx Instructions PO .COMPLEX Qty: 6 RF: 0 cephalexin 500 mg capsule 500 mg PO TID 5 Days Qty: 15 RF: 0 bupropion HCl 300 mg tablet extended release 24 hr 300 mg PO DAILY RF: 0 aripiprazole 20 mg tablet 20 mg PO QPM RF: 0 escitalopram oxalate 10 mg tablet 15 mg PO QAM RF: 0 lorazepam 0.5 mg tablet 0.5 mg PO BID PRNRF: 0 metoprolol tartrate 25 mg tablet 25 mg PO BID RF: 0 atorvastatin 40 mg tablet 40 mg PO DAILY RF: 0 lisinopril 2.5 mg tablet 2.5 mg PO DAILY RF: 0 metformin 500 mg tablet 500 mg PO TID RF: 0 Xarelto 20 mg tablet 20 mg PO DAILY RF: 0 prednisone 20 mg tablet 40 mg PO DAILY Qty: 10 RF: 0 Referrals: Physician,Unknown J [Primary Care Provider] - 3 days
[2021-08-31 14:22] LABS: Basophils Percent Auto 0.1 % (0-2); Eosinophils Absolute Auto 0.1 X10*3/uL (0.0-0.4); Eosinophils Percent Auto 0.7 % (0-4); Hematocrit 38.7 % (42.0-52.0); Hemoglobin 12.5 g/dl (14.0-18.0); Imm Gran Abs Auto 0.03 X10*3/uL (0.00-0.03); Imm Gran Pct Auto 0.3 % (0.0-0.4); Lymphocytes Absolute Auto 1.2 X10*3/uL (1.2-4.9); Lymphocytes Percent Auto 10.8 % (20-40); MANUAL DIFF FLAG NO; Mean Corpuscular HGB Conc 32.3 g/dl (31.0-36.0); Mean Corpuscular Hemoglobin 28.8 pg (27.0-33.0); Mean Corpuscular Volume 89.2 fL (80.0-98.0); Mean Platelet Volume 9.1 fL (9.4-12.4); Monocytes Percent Auto 8.8 % (2-11); Neutrophils Absolute Auto 8.8 x10*3/uL (2.0-8.3); Neutrophils Percent Auto 79.3 % (45-73); Platelet Count 149 X10*3/uL (160-400); Red Blood Count 4.34 X10*6/uL (4.60-5.80); Red Cell Distribution Width 13.5 % (11.0-16.0); White Blood Count 11.1 X10*3/uL (4.8-10.8)
[2021-08-31 14:36] LABS: Lactic Acid 1.8 mmol/L (0.5-2.0)
[2021-08-31 14:47] LABS: B Type Natriuretic Peptide 167 pg/mL (<100)
[2021-08-31 14:48] LABS: Alanine Aminotransferase 26 U/L (0-40); Albumin Level 4.1 g/dL (3.5-5.0); Alkaline Phosphatase 68 U/L (39-117); Anion Gap 13 (12-20); Aspartate Amino Transferase 18 U/L (5-37); Bilirubin Direct 0.4 mg/dL (0.0-0.5); Bilirubin Total 0.8 mg/dL (0.0-1.0); Blood Urea Nitrogen 20 mg/dL (9-16); Calcium 9.7 mg/dL (8.4-10.2); Carbon Dioxide 26 mmol/L (22-29); Chloride 106 mmol/L (96-108); Creatinine Clr Calc Pharmacy 82.1; Estimated Glomerular Filt Rate > 60; Glucose Random 128 mg/dL (60-115); Potassium 4.7 mmol/L (3.3-5.1); Sodium 140 mmol/L (135-145); Total Protein 6.7 g/dL (6.5-8.0)
[2021-08-31 15:04] LABS: COVID-19 Test Invalid (Negative)
[2021-08-31 16:13] LABS: Appearance Urine CLEAR; Color Urine YELLOW; Glucose Urine UA NEG (NEG); Leukocyte Esterase Urine NEG (NEG); Nitrite Urine NEG (NEG); Specific Gravity - Urine 1.025 (1.005-1.025); Urine Blood NEG (NEG); Urine Ketones NEG (NEG); Urine Protein NEG (NEG-TRACE)
[2021-08-31 16:21] LABS: COVID-19 Test Negative (Negative); IDNOW Serial# 9DD0AD1C
[2021-08-31] MEDS: cephALEXin 500 MG CAPSULE PO (17:08)
== END 2021-08-31 17:34 | disposition home or self-care (01) ==
PROVIDERS: Physician Assistant; Emergency Provider Emergency Medicine
DX: L03.115 Cellulitis of right lower limb (principal); L84 Corns and callosities; R60.0 Localized edema; E11.9 Type 2 diabetes mellitus without complications; I48.91 Unspecified atrial fibrillation; Z79.01 Long term (current) use of anticoagulants
CPT/HCPCS: 36415; 71045; 73620; 80048; 80076; 81003; 83605; 83735; 83880; 85025; 87040; 87635; 99283

== ENCOUNTER 2021-09-02 01:08 | Inpatient (IN) | payer MEDICARE, SELFPAY ==
--- NOTE | ~2021-09-02 | US_ITS ---
EXAMINATION: US VENOUS ULTRASOUND WITH DOPPLER LOWER EXTREMITY, RIGHT CLINICAL INFORMATION: Evaluate superficial leg veins. COMPARISON: None TECHNIQUE: Ultrasound of the deep veins is performed from the hip to the calf with compression sonography and color and pulse Doppler assessment. Spectral analysis with color-flow imaging is performed. FINDINGS: There is normal venous compression and respiratory variation and augmented flow. The visualized common femoral vein, superficial femoral vein, profunda femoral vein, popliteal vein, and the trifurcation region shows no evidence of deep venous thrombosis. The right greater saphenous vein is patent throughout its length. There is no right popliteal cyst. Mild to moderate subcutaneous edema is seen in the right calf. If the patient's symptoms persist, followup ultrasound in 5 days 7 days might be of value to exclude proximal propagation from a non-visualized calf vein. US/US venous duplex LE RT IMPRESSION: 1. No evidence of deep venous thrombosis in the visualized veins of right lower extremity. 2. No evidence for superficial thrombosis in the right greater saphenous vein. 3. Mild to moderate subcutaneous edema in the right calf.
--- NOTE | ~2021-09-02 | US_ITS ---
EXAMINATION: US VENOUS ULTRASOUND WITH DOPPLER LOWER EXTREMITY, RIGHT CLINICAL INFORMATION: Right lower extremity pain edema. COMPARISON: None. TECHNIQUE: Ultrasound of the deep veins is performed from the hip to the calf with compression sonography and color and pulse Doppler assessment. Spectral analysis with color-flow imaging is performed. FINDINGS: There is normal venous compression and respiratory variation and augmented flow. The visualized common femoral vein, superficial femoral vein, profunda femoral vein, popliteal vein, and the trifurcation region shows no evidence of deep venous thrombosis. There is no significant popliteal fossa cyst. If the patient's symptoms persist, followup ultrasound in 5 days 7 days might be of value to exclude proximal propagation from a non-visualized calf vein. US/US venous duplex LE RT IMPRESSION: No DVT demonstrated in the right lower extremity.
--- NOTE | ~2021-09-02 | MR_ITS ---
EXAMINATION: MRI OF THE RIGHT FOOT WITH AND WITHOUT CONTRAST CLINICAL INFORMATION: Rule out osteomyelitis, plantar surface. COMPARISON: Radiograph dated 07/01/2021 TECHNIQUE: Multiplanar MR imaging was obtained through the right foot on a 1.5 Kasandra magnet before and after intravenous administration of 10 mL Gadavist. FINDINGS: There is diffuse soft tissue edema signal in the foot with associated swelling. A superficial skin wound is present at the plantar aspect of the fourth metatarsal head measuring 1.2 x 1.3 cm in area. No underlying fluid collections are identified. Bone marrow signal is normal. No fracture or malalignment. 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 Additional mild osteoarthritis present at the first MTP joint. Other MTP joints are unremarkable. There is fatty replacement of the intrinsic foot musculature with associated edema signal. Tendons appear intact. No tears. Joint capsule is unremarkable. MR/MR foot RT wo/w con IMPRESSION: Superficial skin wound at the plantar aspect of the fourth metatarsal head. No evidence of underlying osteomyelitis or septic arthritis.
[2021-09-02 01:46] VITALS: BP 115/56; PULSE 81; RESP 20; TEMP 36.3; O2SAT 97; BMI 32.1
[2021-09-02 02:00] VITALS: BP 119/61; PULSE 88; RESP 20; TEMP 36.8; O2SAT 95
--- NOTE | 2021-09-02 09:38 | ED.SKABFB ---
HPI - Skin/Abscess/Foreign Bdy General Chief complaint: Skin/Abscess/Foreign Body Stated complaint: Cellulitis Time Seen by Provider: 09/02/21 09:35 Source: patient and old records reviewed Mode of arrival: ambulatory Limitations: no limitations History of Present Illness HPI narrative: seen 08/31 started on cephalexin for possible infected callous of R foot complaint: rash and lesion Onset (ago): day(s) (2) Tetanus up to date: yes Location: RLE Severity: moderate Quality: aching Pain Consistency: constant Relieving factors: none Exacerbating factors: palpation Context: other (dx with cellulitis - PO cephalexin started on 08/31) Associated symptoms: other (states redness worsening and streaking up leg now has taken antibiotics as prescribed) Treatments prior to arrival: antibiotic Related Data Home Medications Medication Instructions Recorded Confirmed aripiprazole 20 mg tablet 20 mg PO QPM 07/11/21 atorvastatin 40 mg tablet 40 mg PO DAILY 07/11/21 bupropion HCl 300 mg 24 hr tablet, 300 mg PO DAILY 07/11/21 extended release escitalopram oxalate 10 mg tablet 15 mg PO QAM 07/11/21 lisinopril 2.5 mg tablet 2.5 mg PO DAILY 07/11/21 lorazepam 0.5 mg tablet 0.5 mg PO BID PRN 07/11/21 metformin 500 mg tablet 500 mg PO TID 07/11/21 metoprolol tartrate 25 mg tablet 25 mg PO BID 07/11/21 rivaroxaban 20 mg tablet (Xarelto) 20 mg PO DAILY 07/11/21 Previous Rx's Medication Instructions Recorded cephalexin 500 mg capsule 500 mg PO TID 5 Days #15 cap 01/27/21 azithromycin 250 mg tablet See Rx Instructions PO .COMPLEX #6 07/11/21 tab prednisone 20 mg tablet 40 mg PO DAILY #10 tab 07/11/21 cephalexin 500 mg capsule 500 mg PO QID 7 Days #28 cap 08/31/21 Allergies Allergy/AdvReac Type Severity Reaction Status Date / Time No Known Allergies Allergy Verified 02/06/21 16:55 Review of Systems Review of Systems: Constitutional : No Fever, No Chills ENT/Mouth : No sore throat, No Rhinorrhea Eyes: No Eye Pain, No Swelling, No Redness Cardiovascular : No Chest Pain, No SOB Respiratory : No Cough, No Sputum Gastrointestinal : No Nausea, No Vomiting, No Diarrhea, No abdominal Pain Genitourinary : No Dysuria, No Hematuria Musculoskeletal : No joint pain, No Myalgias, No Joint Swelling Skin : No Skin Lesions, positive skin rash Neuro : No Weakness, No Numbness, No Headache Psych : No Anxiety, No Depression Heme/Lymph: No Bruising, No Bleeding,No Lymphadenopathy Endocrine : No Polyuria, No Polydipsia All other systems reviewed and are negative [facility] Past Medical History Medical History (Updated 09/02/21 @ 11:01 by Maria Esther Brown DO) Afib Diabetes type 2, controlled Schizophrenia Social History Social History (Updated 09/02/21 @ 10:04 by Maria Esther Brown DO) Alcohol intake: former Patient Tobacco Use Status: Tobacco use Unknown Advance Directives: No Physical Exam Vital Signs: Vital Signs: Last Vital Signs Temp 97.4 F 09/02/21 01:46 Pulse 74 09/02/21 10:47 Resp 16 09/02/21 10:47 BP 112/54 L 09/02/21 10:47 Pulse Ox 95 09/02/21 10:47 BMI result Body Mass Index 32.1 Appearance: Alert. Oriented X3. No acute distress. Eyes: Pupils equal, round and reactive to light. ENT: Pharynx normal. Neck: Normal inspection. Neck supple. CVS: Normal heart rate and rhythm. Pulses normal. Respiratory: No respiratory distress. Breath sounds normal. Abdomen: Soft and nontender. Skin: Skin warm and dry. Normal skin color. Normal skin turgor. Extremities: RLE shiny hot to touch, moderate erythema from ankle across anterior trinh up to knee - distal NV intact, compartments are soft and compressible Neuro: Oriented X 3. No motor deficit. No sensory deficit. MDM - Skin/Abscess/Foreign Bdy MDM Narrative Medical decision making narrative: 71 yo male with hx of afib on xarelto, just seen for possible early cellulitis on 08/31 started on cephalexin he is compliant now has RLE that is worsening - at this time will need labs, cultures, IV antibiotics, US to r/o DVT, planned admit for IV antibiotics failed outpatient treatments Lab Data Result diagrams: 09/02/21 10:31 09/02/21 10:31 Labs: Lab Results 09/02/21 09/02/21 09/02/21 Range/Units 10:30 10:31 10:31 WBC 7.7 (4.8-10.8) X10*3/uL RBC 3.76 L (4.60-5.80) X10*6/uL Hgb 11.2 L (14.0-18.0) g/dl Hct 33.4 L (42.0-52.0) % MCV 88.8 (80.0-98.0) fL MCH 29.8 (27.0-33.0) pg MCHC 33.5 (31.0-36.0) g/dl RDW 13.7 (11.0-16.0) % Plt Count 130 L (160-400) X10*3/uL MPV 9.6 (9.4-12.4) fL Immature Gran % (Auto) 0.4 (0.0-0.4) % Neut % (Auto) 76.9 H (45-73) % Lymph % (Auto) 14.2 L (20-40) % [place] % (Auto) 6.8 (2-11) % Eos % (Auto) 1.6 (0-4) % Baso % (Auto) 0.1 (0-2) % Lymph # (Auto) 1.1 L (1.2-4.9) X10*3/uL [place] # (Auto) 0.5 (0.1-1.2) X10*3/uL Eos # (Auto) 0.1 (0.0-0.4) X10*3/uL Baso # (Auto) 0.0 (0.0-0.2) X10*3/uL Abs Immat Gran (auto) 0.03 (0.00-0.03) X10*3/uL Absolute Neuts (auto) 5.9 (2.0-8.3) x10*3/uL Absolute Nucleated RBC 0.000 (0.0-0.012) X10*3/uL Nucleated RBC % (auto) 0.0 (0.0-0.2) /100WBC PT 26.4 H (9.9-13.0) SEC INR 2.3 H (0.9-1.1) APTT 40.3 H (24.1-38.0) SEC Sodium (135-145) mmol/L Potassium (3.3-5.1) mmol/L Chloride (96-108) mmol/L Carbon Dioxide (22-29) mmol/L Anion Gap (12-20) BUN (9-16) mg/dL Creatinine (0.5-1.4) mg/dL Estim Creat Clear Calc Estimated GFR Random Glucose (60-115) mg/dL Lactic Acid (0.5-2.0) mmol/L Calcium (8.4-10.2) mg/dL Magnesium (1.6-2.6) mg/dL Total Bilirubin (0.0-1.0) mg/dL Direct Bilirubin (0.0-0.5) mg/dL AST (5-37) U/L ALT (0-40) U/L Alkaline Phosphatase (39-117) U/L Total Protein (6.5-8.0) g/dL Albumin (3.5-5.0) g/dL COVID-19 (GELY) Negative (Negative) COVID-19 Clin Com See Note 09/02/21 09/02/21 Range/Units 10:31 10:31 WBC (4.8-10.8) X10*3/uL RBC (4.60-5.80) X10*6/uL Hgb (14.0-18.0) g/dl Hct (42.0-52.0) % MCV (80.0-98.0) fL MCH (27.0-33.0) pg MCHC (31.0-36.0) g/dl RDW (11.0-16.0) % Plt Count (160-400) X10*3/uL MPV (9.4-12.4) fL Immature Gran % (Auto) (0.0-0.4) % Neut % (Auto) (45-73) % Lymph % (Auto) (20-40) % Donley % (Auto) (2-11) % Eos % (Auto) (0-4) % Baso % (Auto) (0-2) % Lymph # (Auto) (1.2-4.9) X10*3/uL [place] # (Auto) (0.1-1.2) X10*3/uL Eos # (Auto) (0.0-0.4) X10*3/uL Baso # (Auto) (0.0-0.2) X10*3/uL Abs Immat Gran (auto) (0.00-0.03) X10*3/uL Absolute Neuts (auto) (2.0-8.3) x10*3/uL Absolute Nucleated RBC (0.0-0.012) X10*3/uL Nucleated RBC % (auto) (0.0-0.2) /100WBC PT (9.9-13.0) SEC INR (0.9-1.1) APTT (24.1-38.0) SEC Sodium 136 (135-145) mmol/L Potassium 3.9 (3.3-5.1) mmol/L Chloride 106 (96-108) mmol/L Carbon Dioxide 24 (22-29) mmol/L Anion Gap 10 L (12-20) BUN 17 H (9-16) mg/dL Creatinine 1.11 (0.5-1.4) mg/dL Estim Creat Clear Calc 80.5 Estimated GFR > 60 Random Glucose 206 H D (60-115) mg/dL Lactic Acid 2.2 H* (0.5-2.0) mmol/L Calcium 8.9 D (8.4-10.2) mg/dL Magnesium 2.0 (1.6-2.6) mg/dL Total Bilirubin 0.8 (0.0-1.0) mg/dL Direct Bilirubin 0.4 (0.0-0.5) mg/dL AST 18 (5-37) U/L ALT 25 (0-40) U/L Alkaline Phosphatase 60 (39-117) U/L Total Protein 5.8 L (6.5-8.0) g/dL Albumin 3.5 (3.5-5.0) g/dL COVID-19 (GELY) (Negative) COVID-19 Clin Com Discharge Plan Discharge Clinical Impression: Cellulitis, Acidosis, lactic Patient Disposition: Admitted As Inpatient Prescriptions: No Action azithromycin 250 mg tablet See Rx Instructions PO .COMPLEX Qty: 6 RF: 0 cephalexin 500 mg capsule 500 mg PO TID 5 Days Qty: 15 RF: 0 cephalexin 500 mg capsule 500 mg PO QID 7 Days Qty: 28 RF: 0 bupropion HCl 300 mg tablet extended release 24 hr 300 mg PO DAILY RF: 0 aripiprazole 20 mg tablet 20 mg PO QPM RF: 0 escitalopram oxalate 10 mg tablet 15 mg PO QAM RF: 0 lorazepam 0.5 mg tablet 0.5 mg PO BID PRNRF: 0 metoprolol tartrate 25 mg tablet 25 mg PO BID RF: 0 atorvastatin 40 mg tablet 40 mg PO DAILY RF: 0 lisinopril 2.5 mg tablet 2.5 mg PO DAILY RF: 0 metformin 500 mg tablet 500 mg PO TID RF: 0 Xarelto 20 mg tablet 20 mg PO DAILY RF: 0 prednisone 20 mg tablet 40 mg PO DAILY Qty: 10 RF: 0
[2021-09-02 10:37] LABS: MANUAL DIFF FLAG NO
[2021-09-02 10:40] LABS: Basophils Percent Auto 0.1 % (0-2); Eosinophils Absolute Auto 0.1 X10*3/uL (0.0-0.4); Eosinophils Percent Auto 1.6 % (0-4); Hematocrit 33.4 % (42.0-52.0); Hemoglobin 11.2 g/dl (14.0-18.0); Imm Gran Abs Auto 0.03 X10*3/uL (0.00-0.03); Imm Gran Pct Auto 0.4 % (0.0-0.4); Lymphocytes Absolute Auto 1.1 X10*3/uL (1.2-4.9); Lymphocytes Percent Auto 14.2 % (20-40); Mean Corpuscular HGB Conc 33.5 g/dl (31.0-36.0); Mean Corpuscular Hemoglobin 29.8 pg (27.0-33.0); Mean Corpuscular Volume 88.8 fL (80.0-98.0); Mean Platelet Volume 9.6 fL (9.4-12.4); Monocytes Absolute Auto 0.5 X10*3/uL (0.1-1.2); Monocytes Percent Auto 6.8 % (2-11); Neutrophils Absolute Auto 5.9 x10*3/uL (2.0-8.3); Neutrophils Percent Auto 76.9 % (45-73); Platelet Count 130 X10*3/uL (160-400); Red Blood Count 3.76 X10*6/uL (4.60-5.80); Red Cell Distribution Width 13.7 % (11.0-16.0); White Blood Count 7.7 X10*3/uL (4.8-10.8)
[2021-09-02 10:44] LABS: INTERNATIONAL NORM RATIO 2.3 (0.9-1.1); Prothrombin Time 26.4 SEC (9.9-13.0)
[2021-09-02 10:46] LABS: Partial Thromboplastin Time 40.3 SEC (24.1-38.0)
[2021-09-02 10:47] VITALS: BP 112/54; PULSE 74; RESP 16; O2SAT 95
--- NOTE | 2021-09-02 10:47 | PC.NURSE ---
Pt received: Pt AOX4 and stating he feels mild pain and tenderness with R lower extremity. Redness and swelling noted to R lower leg. Pt states he has noted fevers at home, but nothing recent. Pt has been on keflex at home for past few days but redness and swelling to leg has not improved. Heart sounds normala. Luings clear. Abd round and non-tender.
[2021-09-02 10:50] LABS: Lactic Acid 2.2 mmol/L (0.5-2.0)
[2021-09-02 10:53] LABS: COVID-19 Test Negative (Negative)
[2021-09-02 10:57] LABS: Alanine Aminotransferase 25 U/L (0-40); Albumin Level 3.5 g/dL (3.5-5.0); Alkaline Phosphatase 60 U/L (39-117); Anion Gap 10 (12-20); Aspartate Amino Transferase 18 U/L (5-37); Bilirubin Direct 0.4 mg/dL (0.0-0.5); Bilirubin Total 0.8 mg/dL (0.0-1.0); Blood Urea Nitrogen 17 mg/dL (9-16); Calcium 8.9 mg/dL (8.4-10.2); Carbon Dioxide 24 mmol/L (22-29); Chloride 106 mmol/L (96-108); Creatinine Clr Calc Pharmacy 80.5; Estimated Glomerular Filt Rate > 60; Glucose Random 206 mg/dL (60-115); Potassium 3.9 mmol/L (3.3-5.1); Sodium 136 mmol/L (135-145); Total Protein 5.8 g/dL (6.5-8.0)
[2021-09-02] MEDS: Piperacillin Sodium/Tazobactam 3.375 GM in 0.9 % Sodium Chloride 50 ML IV (11:10)
[2021-09-02] MEDS: 0.9 % Sodium Chloride 500 ML IV (11:10)
--- NOTE | 2021-09-02 11:17 | PHA.MEDREC ---
Pharmacy Consult ? Medication Reconciliation Pharmacy has completed the medication reconciliation Contacted daughter and for home med list. patient has taken 7 doses of keflex. pt took all medications this am..
[2021-09-02] MEDS: vancomycin HCL 1,500 MG in 0.9 % Sodium Chloride 500 ML 333.33 MG IV (12:06)
[2021-09-02 12:35] LABS: Reflex Lactate? Lactic Acid Added
--- NOTE | 2021-09-02 12:41 | P.HPHOSP_ITS ---
History of Present Illness Date of Service: 09/02/21 Chief Complaint: Right leg swelling, redness and pain 71-year-old male with a past medical history of AFib on Xarelto, diabetes, schizophrenia, HLD was seen in ED on with complaining of fever T-max 100.4? and a painful calus at right sole. He was discharged wth oral Keflex and comes today with redness occupying most of the leg as seen in the picture below, he says has has had chills, fever and denies trauma to the area, area is red, hot and mildly painful. Given Vanco and Zosyn in the ED. He does not meet sepsis criteria. Review of Systems Review of Systems: rirght leg pain, redness, no fever, no sob, no confusion Yes all other systems are reviewed and are negative [facility] Medical History (Updated 09/02/21 @ 12:46 by Vijay Moss MD) Afib Diabetes type 2, controlled HLD (hyperlipidemia) HTN (hypertension) Schizophrenia Pertinent family history: Brother with heart condition Surgical History (Updated 09/02/21 @ 12:47 by Vijay Moss MD) History of total right knee replacement (TKR) Social History Alcohol intake: former Patient Tobacco Use Status: Tobacco use Unknown Advance Directives: No Meds Allergies Allergy/AdvReac Type Severity Reaction Status Date / Time No Known Allergies Allergy Verified 09/02/21 13:15 Active Medications: Current Medications Pharmacy Consult (Consult Rx Perform Med Rec) 1 each MISCELLANE ONCE PRN PRN Reason: Consult order Pharmacy Consult (Consult Rx Vancomycin Dosing) 1 each MISCELLANE DAILY PRN PRN Reason: Consult order Home Medications Medication Instructions Recorded Confirmed Last Taken Type aripiprazole 20 mg tablet 20 mg PO BEDTIME 07/11/21 09/02/21 09/01/21 History atorvastatin 40 mg tablet 40 mg PO QPM 07/11/21 09/02/21 09/02/21 History bupropion HCl 300 mg 24 hr tablet, 300 mg PO DAILY 07/11/21 09/02/21 09/02/21 History extended release lorazepam 0.5 mg tablet 0.5 mg PO BID PRN 07/11/21 09/02/21 Unknown History metformin 500 mg tablet 500 mg PO DAILY 07/11/21 09/02/21 09/02/21 History metoprolol tartrate 25 mg tablet 25 mg PO BID 07/11/21 09/02/21 09/02/21 History rivaroxaban 20 mg tablet (Xarelto) 20 mg PO BEDTIME 07/11/21 09/02/21 09/01/21 History escitalopram oxalate 20 mg tablet 1 tab PO DAILY 09/02/21 09/02/21 09/02/21 History glipizide 5 mg tablet, extended 1 tab PO DAILY 09/02/21 09/02/21 09/02/21 History release 24 hr metformin 500 mg tablet 1,000 mg PO DAILY@1700 09/02/21 09/02/21 09/01/21 History Physical Exam Vital Signs and Narrative: Vital Signs: Last Vital Signs Temp 97.4 F 09/02/21 01:46 Pulse 74 09/02/21 10:47 Resp 16 09/02/21 10:47 BP 112/54 L 09/02/21 10:47 Pulse Ox 95 09/02/21 10:47 BMI result Body Mass Index 32.1 Const: Other: Constitutional: Alert, in no distress, overweight. Mental Status: Oriented to person, place and time. Eyes: Pupils are equal, round and reactive to light. Ear, Nose and Throat: Oropharynx clear, mucous membranes moist. Ears and nose without eformities. Trachea midline. Respiratory: Clear to auscultation. No wheezing, rales or rhonchi. Cardiovascular: S1 S2 regular. No murmurs, rubs or gallops. Gastrointestinal: Abdomen soft, non-tender, non-distended. Normal bowel sounds.? Neurologic: Cranial nerves II-XII grossly intact. No focal neurological deficits. Moves all extremities spontaneously.? Skin: Musculoskeletal: No cyanosis or clubbing. Psychiatric: Normal mood and affect? Results Labs CBC and Chem 7: 09/02/21 10:31 09/02/21 10:31 Labs: Laboratory Results - last 24 hr 09/02/21 09/02/21 09/02/21 10:30 10:31 10:31 MCV 88.8 MCH 29.8 MCHC 33.5 RDW 13.7 Plt Count 130 L MPV 9.6 Immature Gran % (Auto) 0.4 Neut % (Auto) 76.9 H Lymph % (Auto) 14.2 L [place] % (Auto) 6.8 Eos % (Auto) 1.6 Baso % (Auto) 0.1 Lymph # (Auto) 1.1 L [place] # (Auto) 0.5 Eos # (Auto) 0.1 Baso # (Auto) 0.0 Abs Immat Gran (auto) 0.03 Absolute Neuts (auto) 5.9 Absolute Nucleated RBC 0.000 Nucleated RBC % (auto) 0.0 PT 26.4 H INR 2.3 H APTT 40.3 H Anion Gap Estim Creat Clear Calc Estimated GFR Random Glucose Lactic Acid Calcium Magnesium Total Bilirubin Direct Bilirubin AST ALT Alkaline Phosphatase Total Protein Albumin COVID-19 (GELY) Negative COVID-19 Clin Com See Note 09/02/21 09/02/21 10:31 10:31 MCV MCH MCHC RDW Plt Count MPV Immature Gran % (Auto) Neut % (Auto) Lymph % (Auto) [place] % (Auto) Eos % (Auto) Baso % (Auto) Lymph # (Auto) [place] # (Auto) Eos # (Auto) Baso # (Auto) Abs Immat Gran (auto) Absolute Neuts (auto) Absolute Nucleated RBC Nucleated RBC % (auto) PT INR APTT Anion Gap 10 L Estim Creat Clear Calc 80.5 Estimated GFR > 60 Random Glucose 206 H D Lactic Acid 2.2 H* Calcium 8.9 D Magnesium 2.0 Total Bilirubin 0.8 Direct Bilirubin 0.4 AST 18 ALT 25 Alkaline Phosphatase 60 Total Protein 5.8 L Albumin 3.5 COVID-19 (GELY) COVID-19 Clin Com Imaging Radiologist's Impressions: Impressions Venous Duplex 09/02/21 10:49 IMPRESSION: No DVT demonstrated in the right lower extremity. Assessment and Plan (1) Cellulitis of right leg: Status: Acute (2) HTN (hypertension): Status: Acute (3) HLD (hyperlipidemia): Status: Acute (4) Lower respiratory infection (e.g., bronchitis, pneumonia, pneumonitis, pulmonitis): Status: Acute 71/m with diabetes, HLD, HTN, Schizophrenia here with right leg celluliti s 1/Right Leg Celulitis --failed Keflex, negative DVT -Started on Vanco and Zosyn in ED, will continue Vanco 2/ HTN--continue home meds 3/Diabetes-resume home meds, add diabetic diet and SSI 4/ Chronic AFIB--rate control on metoprolol and continue Xarelto 5/Schizophrenia--continue home meds DVT --continue Xarelto for AFIB Quality Stroke Does the patient have a stroke diagnosis?: No VTE Prior VTE?: No VTE Risk Level:: Medical - low VTE Device Contraindication: Treatment Not Indicated VTE Drug Contraindication: N/A - Med Ordered
[2021-09-02 13:07] LABS: ~Lactic Acid-LAB USE ONLY 1.3 mmol/L (0.5-2.0)
--- NOTE | 2021-09-02 13:23 | PC.NURSE ---
Pt's Beverly: [phone] Pt's daughter Azul: [phone]
--- NOTE | 2021-09-02 14:09 | PHA.PROG ---
Admission Date/Time: Indication: SKIN AND SKIN STRUCTURE Weight in k.398 kg Adjusted body weight in K.7 KG [place] body weight in K.2 KG Obesity Dosing Indication % IBW: Serum Creatinine - Last 168 Hours 09/02/21 10:31 Creatinine 1.11 Estimated CrCl and GFR - Last 168 Hours 09/02/21 10:31 Estim Creat Clear Calc 80.5 Estimated GFR > 60 Vancomycin Loading Dose: 1500 MG X 1 IN ED Current Vancomycin Dosing Regimen: 1000 MG Q12H Vancomycin Monitoring using AUC goal of 400 - 600 range with trough as surrogate marker: PREDICTED AUC 509 Date and Time for next Vancomycin Level to be drawn: 09/03/21 @2200 Pharmacist Comments on Vancomycin Plan: Vancomycin dosing will take advantage of [employer] as a clinical decision support tool that uses Bayesian modeling to calculate individual patient's pharmacokinetic parameters and forecast the patient's drug concentration time course with the target goal AUC 24 range of 400 - 600 mg/L/hr.
[2021-09-02 15:26] VITALS: BP 118/60; PULSE 80; RESP 20; TEMP 36.6; O2SAT 98
[2021-09-02] MEDS: metFORMIN HCl 1,000 MG TABLET 1000 MG PO (18:10)
[2021-09-02 20:18] VITALS: BP 112/54; PULSE 77; RESP 18; O2SAT 98
[2021-09-02 20:54] LABS: Glucose, Whole Blood 152 mg/dL (60-115)
[2021-09-02] MEDS: Metoprolol Tartrate 25 MG TABLET PO (21:53)
[2021-09-02] MEDS: Rivaroxaban 20 MG TABLET PO (21:53)
[2021-09-02] MEDS: LORazepam 0.5 MG TABLET PO (21:53)
[2021-09-02] MEDS: ARIPiprazole 20 MG TABLET PO (21:53)
[2021-09-02] MEDS: Insulin Lispro 100 UNIT/ML 3 ML VIAL SUBCUT (21:54)
[2021-09-03] VITALS (7 sets, daily range): BP systolic 118–138; BP diastolic 56–82; PULSE 79–88; RESP 16–20; TEMP 36.3–36.9; O2SAT 95–98
[2021-09-03] MEDS: vancomycin HCL 1,000 MG in 0.9 % Sodium Chloride 250 ML 270 MG IV ×2 (00:14→11:29)
--- NOTE | 2021-09-03 00:52 | PC.NURSE ---
Report called to inpt RN. Pt to floor via wc in stable condition w/ all belongings, vanc infusing
[2021-09-03 06:15] LABS: Anion Gap 8 (12-20); Blood Urea Nitrogen 18 mg/dL (9-16); Carbon Dioxide 27 mmol/L (22-29); Chloride 108 mmol/L (96-108); Creatinine Clr Calc Pharmacy 85.9; Estimated Glomerular Filt Rate > 60; Glucose Random 128 mg/dL (60-115); Potassium 4.2 mmol/L (3.3-5.1); Sodium 139 mmol/L (135-145)
[2021-09-03 07:33] LABS: Glucose, Whole Blood 138 mg/dL (60-115)
[2021-09-03] MEDS: Piperacillin Sodium/Tazobactam 3.375 GM in 0.9 % Sodium Chloride 50 ML IV ×2 (07:39→13:43)
[2021-09-03] MEDS: Escitalopram Oxalate 20 MG TABLET PO (07:41)
[2021-09-03] MEDS: Metoprolol Tartrate 25 MG TABLET PO ×2 (07:41→19:37)
[2021-09-03] MEDS: buPROPion HCl XL 300 MG TAB.ER.24H PO (07:41)
[2021-09-03] MEDS: 0.9 % Sodium Chloride Flush 3 ML SYRINGE IVFLUSH ×3 (07:41→23:08)
[2021-09-03] MEDS: glipiZIDE XL 5 MG TAB.ER.24 PO (07:41)
[2021-09-03] MEDS: Atorvastatin Calcium 40 MG TABLET PO (07:41)
[2021-09-03] MEDS: LORazepam 0.5 MG TABLET PO ×2 (07:41→19:37)
[2021-09-03] MEDS: metFORMIN HCl 500 MG TABLET PO (07:41)
--- NOTE | 2021-09-03 10:44 | MHC.CM.PN ---
CM MET WITH PT WHO REPORTS AT BASELINE HE IS INDEPENDENT WITH CARE PT DENIES HAVING ANY HOME/COMMUNITY SERVICES' PT REPORTS HE RECEIVES HIS PRIMARY CARE IN [place]. HE SAYS HIS PCP WAS DR CHACON HOWEVER HE IS IN THE PROCESS OF CHANGING PT DOES NOT KNOW WHO HIS NEW PCP IS AND ASKS THAT T/W CALL HIS PTS MEDICARE RIGHTS WERE DELIVERED DC PLAN IS HOME VS HOME WITH [facility] TO TRANSPORT CM ATTEMPTED TO CONTACT PTS , SHARAN [phone]. A VM MESSAGE WAS LEFT REQUESTING A RETURN CALL
[2021-09-03 11:16] LABS: Glucose, Whole Blood 154 mg/dL (60-115)
[2021-09-03] MEDS: Insulin Lispro 100 UNIT/ML 3 ML VIAL SUBCUT (11:30)
--- NOTE | 2021-09-03 12:17 | P.PNIM_ITS ---
Subjective Subjective Date of Service: 09/03/21 Interval History: right leg cellulitis, failed outpatient Antibiotic therapy. Review of Systems leg erythema seems similar, still has pain. Physical Exam Vital Signs: Vital Signs: Last Vital Signs Temp 97.6 F 09/03/21 11:08 Pulse 80 09/03/21 11:08 Resp 16 09/03/21 11:08 BP 134/78 09/03/21 11:08 Pulse Ox 96 09/03/21 11:08 BMI result Body Mass Index 32.1 Physical exam: Appearance: Alert.? Oriented X3.? not in distress.? Eyes: Pupils equal, round and reactive to light.? Sclera nonicteric.? ENT: Pharynx normal.? Moist mucous membranes. cvs: rrr, [id number] , no murmur res: clear to auscultation ,no rhonchii or wheezing abd: no rebound or guarding ,nt, bs present. ext pulses present , no cyanosis Right leg-erythema, pain and swelling seems similar as yesterday.. neuro: axo3 , nonfocal. Objective Data Active Medications Acetaminophen (Acetaminophen 325 Mg Tablet) 650 mg PO Q6H PRN PRN Reason: Pain, Mild (Pain Scale 1-3) Al Hydroxide/Mg Hydroxide (Magnesium Hydrox/Alum Hydrox 30 Ml Oral.Susp) 30 ml PO Q4H PRN PRN Reason: Heartburn/Nausea Aripiprazole (Aripiprazole 20 Mg Tablet) 20 mg PO BEDTIME [facility] Last Admin: 09/02/21 21:53 Dose: 20 mg Documented by: MERT Atorvastatin Calcium (Atorvastatin Calcium 40 Mg Tablet) 40 mg PO DAILY [facility] Last Admin: 09/03/21 07:41 Dose: 40 mg Documented by: BERNA Bupropion HCl (Bupropion Hcl Xl 300 Mg Tab.Er.24h) 300 mg PO DAILY [facility] Last Admin: 09/03/21 07:41 Dose: 300 mg Documented by: BERNA Escitalopram Oxalate (Escitalopram Oxalate 20 Mg Tablet) 20 mg PO DAILY [facility] Last Admin: 09/03/21 07:41 Dose: 20 mg Documented by: BERNA Glipizide (Glipizide Xl 5 Mg Tab.Er.24) 5 mg PO DAILY [facility] Last Admin: 09/03/21 07:41 Dose: 5 mg Documented by: BERNA Vancomycin HCl 1,000 mg/ (Sodium Chloride) 270 mls @ 270 mls/hr IV Q12H [facility] Last Admin: 09/03/21 11:29 Dose: 270 mls/hr Documented by: BERNA Piperacillin Sod/Tazobactam (Sod 3.375 gm/ Sodium Chloride) 50 mls @ 100 mls/hr IV Q6H [facility] Last Infusion: 09/03/21 08:52 Dose: 0 mls/hr Documented by: BERNA Insulin Human Lispro (Insulin Lispro 100 Unit/Ml 3 Ml Vial) 0 unit SUBCUT QIDACHS [facility]; Protocol Last Admin: 09/03/21 11:30 Dose: 2 unit Documented by: BERNA Lorazepam (Lorazepam 0.5 Mg Tablet) 0.5 mg PO BID [facility] Last Admin: 09/03/21 07:41 Dose: 0.5 mg Documented by: BERNA Melatonin (Melatonin 3 Mg Tablet) 6 mg PO BEDTIME PRN PRN Reason: Insomnia Metformin HCl (Metformin Hcl 500 Mg Tablet) 500 mg PO DAILY [facility] Last Admin: 09/03/21 07:41 Dose: 500 mg Documented by: BERNA Metformin HCl (Metformin Hcl 1,000 Mg Tablet) 1,000 mg PO DAILY@1700 [facility] Last Admin: 09/02/21 18:10 Dose: 1,000 mg Documented by: TRISTIN-MALIR Metoprolol Tartrate (Metoprolol Tartrate 25 Mg Tablet) 25 mg PO BID [facility]; Protocol Last Admin: 09/03/21 07:41 Dose: 25 mg Documented by: BERNA Ondansetron HCl (Ondansetron Hcl 4 Mg/2 Ml Vial) 4 mg IVPUSH Q8H PRN PRN Reason: Nausea and Vomiting Pharmacy Consult (Consult Rx Perform Med Rec) 1 each MISCELLANE ONCE PRN PRN Reason: Consult order Pharmacy Consult (Consult Rx Vancomycin Dosing) 1 each MISCELLANE DAILY PRN PRN Reason: Consult order Rivaroxaban (Rivaroxaban 20 Mg Tablet) 20 mg PO BEDTIME [facility] Last Admin: 09/02/21 21:53 Dose: 20 mg Documented by: MERT Sodium Chloride (0.9 % Sodium Chloride Flush 3 Ml Syringe) 3 ml IVFLUSH QSHIFT [facility] Last Admin: 09/03/21 07:41 Dose: 3 ml Documented by: BERNA Labs CBC & Chem 7: 09/02/21 10:31 09/03/21 05:16 Labs: Laboratory Results - last 24 hr 09/02/21 09/02/21 09/03/21 12:52 20:49 05:16 Anion Gap 8 L Estim Creat Clear Calc 85.9 Estimated GFR > 60 POC Glucose 152 H Random Glucose 128 H D Lactic Acid F/U @ 2Hr 1.3 Calcium 9.0 09/03/21 09/03/21 07:16 11:05 Anion Gap Estim Creat Clear Calc Estimated GFR POC Glucose 138 H 154 H Random Glucose Lactic Acid F/U @ 2Hr Calcium Assessment and Plan (1) Cellulitis of right leg: Status: Acute Assessment and Plan: 71/m with diabetes, HLD, HTN, Schizophrenia here with? right leg cellulitis 1/Right Leg Celulitis --failed Keflex, negative DVT Blood culture pending, no fever leukocytosis resolving -Started on Vanco and Zosyn in ED, will continue Vanco id evaluation pending. 2/ HTN--continue home meds 3/Diabetes-resume home meds, add diabetic diet and SSI 4/ Chronic AFIB--rate control on metoprolol and continue Xarelto 5/Schizophrenia--continue? home meds DVT --continue Xarelto for AFIB Quality Stroke Does the patient have a stroke diagnosis?: No VTE Prior VTE?: No VTE Risk Level:: Medical - low VTE Device Contraindication: Treatment Not Indicated VTE Drug Contraindication: N/A - Med Ordered
[2021-09-03 12:46] LABS: C Reactive Protein 14.54 mg/dL (< or = 0.50)
--- NOTE | 2021-09-03 15:04 | P.CNID_ITS ---
History of Present Illness Data of Consult Service Date: 09/03/21 Requesting physician: Jean Miller Primary Care Provider: Unknown Physician HPI Reason for consult: right leg redness He presents to hospital with increasing right leg redness for last four days. He was seen in ER on 08/31 and had been given Keflex which he took seven doses of. He has had increasing redness and streaking up leg He had picked a callus on bottom of foot last week Review of Systems Review of Systems: Yes all other systems are reviewed and are negative [facility] Past Medical History Medical History Afib Diabetes type 2, controlled HLD (hyperlipidemia) HTN (hypertension) Schizophrenia Family History Family history: reviewed and not pertinent Surgical History Surgical History History of total right knee replacement (TKR) Social History Social History Household Members: Spouse Housing: House Unable to assess alcohol history related to: Unknown Alcohol intake: former Patient Tobacco Use Status: Tobacco use Unknown e-Cigarette/Vaping Use: Never Used Use of substances other than those prescribed or required for medical reasons: No Currently Displaying Signs/Symptoms of Drug Intoxication Withdrawal: No Have you been hit, kicked, punched, or otherwise hurt by someone within the past year? If so, by whom?: No Do you feel safe in your current relationship?: Yes Is there a partner from a previous relationship who is making you feel unsafe now?: No Are you made to feel afraid or neglected: No Advance Directives: No Do you have thoughts of harming others: None Do you have a plan to hurt others: No Plan Recently lost weight without trying: No Eating poorly because of decreased appetite: No Nutrition Risks: No Nutritional Risk service: No Current occupational status: retired Meds Allergies Allergy/AdvReac Type Severity Reaction Status Date / Time No Known Allergies Allergy Verified 09/02/21 13:15 Active Medications: Current Medications Acetaminophen (Acetaminophen 325 Mg Tablet) 650 mg PO Q6H PRN PRN Reason: Pain, Mild (Pain Scale 1-3) Al Hydroxide/Mg Hydroxide (Magnesium Hydrox/Alum Hydrox 30 Ml Oral.Susp) 30 ml PO Q4H PRN PRN Reason: Heartburn/Nausea Aripiprazole (Aripiprazole 20 Mg Tablet) 20 mg PO BEDTIME [facility] Last Admin: 09/02/21 21:53 Dose: 20 mg Documented by: Atorvastatin Calcium (Atorvastatin Calcium 40 Mg Tablet) 40 mg PO DAILY [facility] Last Admin: 09/03/21 07:41 Dose: 40 mg Documented by: Bupropion HCl (Bupropion Hcl Xl 300 Mg Tab.Er.24h) 300 mg PO DAILY [facility] Last Admin: 09/03/21 07:41 Dose: 300 mg Documented by: Escitalopram Oxalate (Escitalopram Oxalate 20 Mg Tablet) 20 mg PO DAILY [facility] Last Admin: 09/03/21 07:41 Dose: 20 mg Documented by: Glipizide (Glipizide Xl 5 Mg Tab.Er.24) 5 mg PO DAILY [facility] Last Admin: 09/03/21 07:41 Dose: 5 mg Documented by: Clindamycin Phosphate (Cleocin) 600 mg in 50 mls @ 100 mls/hr IV Q8H [facility] Insulin Human Lispro (Insulin Lispro 100 Unit/Ml 3 Ml Vial) 0 unit SUBCUT QIDACHS [facility]; Protocol Last Admin: 09/03/21 11:30 Dose: 2 unit Documented by: Lorazepam (Lorazepam 0.5 Mg Tablet) 0.5 mg PO BID [facility] Last Admin: 09/03/21 07:41 Dose: 0.5 mg Documented by: Melatonin (Melatonin 3 Mg Tablet) 6 mg PO BEDTIME PRN PRN Reason: Insomnia Metformin HCl (Metformin Hcl 500 Mg Tablet) 500 mg PO DAILY [facility] Last Admin: 09/03/21 07:41 Dose: 500 mg Documented by: Metformin HCl (Metformin Hcl 1,000 Mg Tablet) 1,000 mg PO DAILY@1700 [facility] Last Admin: 09/02/21 18:10 Dose: 1,000 mg Documented by: Metoprolol Tartrate (Metoprolol Tartrate 25 Mg Tablet) 25 mg PO BID [facility]; Protocol Last Admin: 09/03/21 07:41 Dose: 25 mg Documented by: Ondansetron HCl (Ondansetron Hcl 4 Mg/2 Ml Vial) 4 mg IVPUSH Q8H PRN PRN Reason: Nausea and Vomiting Pharmacy Consult (Consult Rx Perform Med Rec) 1 each MISCELLANE ONCE PRN PRN Reason: Consult order Pharmacy Consult (Consult Rx Vancomycin Dosing) 1 each MISCELLANE DAILY PRN PRN Reason: Consult order Rivaroxaban (Rivaroxaban 20 Mg Tablet) 20 mg PO BEDTIME [facility] Last Admin: 09/02/21 21:53 Dose: 20 mg Documented by: Sodium Chloride (0.9 % Sodium Chloride Flush 3 Ml Syringe) 3 ml IVFLUSH QSHIFT [facility] Last Admin: 09/03/21 13:43 Dose: 3 ml Documented by: Home Medications Medication Instructions Recorded Confirmed Last Taken Type aripiprazole 20 mg tablet 20 mg PO BEDTIME 07/11/21 09/02/21 09/01/21 History atorvastatin 40 mg tablet 40 mg PO DAILY 07/11/21 09/02/21 09/02/21 History bupropion HCl 300 mg 24 hr tablet, 300 mg PO DAILY 07/11/21 09/02/21 09/02/21 History extended release lorazepam 0.5 mg tablet 0.5 mg PO BID 07/11/21 09/02/21 Unknown History metformin 500 mg tablet 500 mg PO DAILY 07/11/21 09/02/21 09/02/21 History metoprolol tartrate 25 mg tablet 25 mg PO BID 07/11/21 09/02/21 09/02/21 History rivaroxaban 20 mg tablet (Xarelto) 20 mg PO BEDTIME 07/11/21 09/02/21 09/01/21 History cholecalciferol (vitamin D3) 25 25 mcg PO DAILY 09/02/21 09/02/21 Unknown History mcg (1,000 unit) capsule (Vitamin D3) escitalopram oxalate 20 mg tablet 1 tab PO DAILY 09/02/21 09/02/21 09/02/21 History glipizide 5 mg tablet, extended 1 tab PO DAILY 09/02/21 09/02/21 09/02/21 History release 24 hr lisinopril 2.5 mg tablet 1 tab PO DAILY 09/02/21 09/02/21 Unknown History metformin 500 mg tablet 1,000 mg PO DAILY@1700 09/02/21 09/02/21 09/01/21 History multivitamin-iron (hematinic) 1 tab PO DAILY 09/02/21 09/02/21 Unknown History Physical Exam Vital Signs: Vital Signs: Last Vital Signs Temp 97.3 F 09/03/21 14:55 Pulse 79 09/03/21 14:55 Resp 18 09/03/21 14:55 BP 135/68 09/03/21 14:55 Pulse Ox 98 09/03/21 14:55 BMI result Body Mass Index 32.1 Const: General: cooperative HENMT: Head: Yes normal to inspection Mouth: Normal oral and palatal mucosa present Eyes: Pupils: Equal, round and reactive pupils present Resp: Effort & Inspection: normal respiratory effort Cardio: Rate: regular rate Rhythm: regular rhythm GI: Palpation (GI): Soft to palpation and nontender Skin: General skin exam: no rashes or lesions noted Neuro: Cranial nerves: Yes Equal, round and reactive pupils present Extrem: Other: right leg reddened and hot below knee to foot no tinea pedis ulcer plantar foot under 5th toe one cm dry appearance Results Labs CBC & Chem 7: 09/02/21 10:31 09/03/21 05:16 Labs: BMP 09/03/21 05:16 Sodium 139 Potassium 4.2 Chloride 108 Carbon Dioxide 27 BUN 18 H Creatinine 1.04 Calcium 9.0 Microbiology Microbiology Results: Microbiology 09/02/21 11:02 Blood - Venous Blood Culture - Preliminary No growth after 24 hours. 09/02/21 11:02 Blood - Venous Blood Culture - Preliminary No growth after 24 hours. Assessment and Plan (1) Cellulitis of right leg: Status: Acute He has possible staph or strep Clindamycin cover above 2-3 d IV likely and then po CT or MRI foot consider evaluate any osteomyelitis plantar surface
--- NOTE | 2021-09-03 15:37 | PC.NURSE ---
Skin assessment completed. Patient has cellulitis to his right lower leg. No other skin issues noted at this time.
[2021-09-03 16:25] LABS: Glucose, Whole Blood 121 mg/dL (60-115)
[2021-09-03] MEDS: Clindamycin Phosphate/D5W 600 MG/50 ML PIGGYBACK 100 MG IV ×2 (16:33→23:07)
[2021-09-03 19:36] LABS: Glucose, Whole Blood 116 mg/dL (60-115)
[2021-09-03] MEDS: ARIPiprazole 20 MG TABLET PO (19:37)
[2021-09-03] MEDS: Rivaroxaban 20 MG TABLET PO (19:37)
[2021-09-04] VITALS (7 sets, daily range): BP systolic 101–159; BP diastolic 58–77; PULSE 58–86; RESP 16–20; TEMP 36.4–37.1; O2SAT 96–99
[2021-09-04 06:11] LABS: Anion Gap 10 (12-20); Blood Urea Nitrogen 14 mg/dL (9-16); Calcium 9.3 mg/dL (8.4-10.2); Carbon Dioxide 26 mmol/L (22-29); Chloride 105 mmol/L (96-108); Creatinine Clr Calc Pharmacy 95.1; Estimated Glomerular Filt Rate > 60; Glucose Random 140 mg/dL (60-115); Potassium 4.3 mmol/L (3.3-5.1); Sodium 137 mmol/L (135-145)
[2021-09-04 07:45] LABS: Glucose, Whole Blood 136 mg/dL (60-115)
[2021-09-04] MEDS: buPROPion HCl XL 300 MG TAB.ER.24H PO (07:52)
[2021-09-04] MEDS: Metoprolol Tartrate 25 MG TABLET PO ×2 (07:52→20:11)
[2021-09-04] MEDS: LORazepam 0.5 MG TABLET PO ×2 (07:52→20:11)
[2021-09-04] MEDS: glipiZIDE XL 5 MG TAB.ER.24 PO (07:52)
[2021-09-04] MEDS: Escitalopram Oxalate 20 MG TABLET PO (07:52)
[2021-09-04] MEDS: Atorvastatin Calcium 40 MG TABLET PO (07:52)
[2021-09-04] MEDS: Clindamycin Phosphate/D5W 600 MG/50 ML PIGGYBACK 100 MG IV ×3 (07:54→23:19)
[2021-09-04] MEDS: 0.9 % Sodium Chloride Flush 3 ML SYRINGE IVFLUSH ×3 (07:55→23:19)
[2021-09-04 12:14] LABS: Glucose, Whole Blood 134 mg/dL (60-115)
--- NOTE | 2021-09-04 13:00 | HO.PM.IMPN ---
Subjective Subjective Date of Service: 09/04/21 Interval History: right leg cellulitis, failed outpatient? Antibiotic therapy. Review of Systems Leg cellulitis area is seems similar as of yesterday, still has mild swelling also. Denies any new complaint of chest pain or shortness of breath or abdominal pain or fever or chills or nausea or vomiting or cough Denies any weakness or numbness. Physical Exam Vital Signs: Vital Signs: Last Vital Signs Temp 98.3 F 09/04/21 12:00 Pulse 77 09/04/21 12:00 Resp 18 09/04/21 12:00 BP 135/58 L 09/04/21 12:00 Pulse Ox 97 09/04/21 07:08 BMI result Body Mass Index 32.1 Appearance: Alert.? Oriented X3.? not in distress.? Eyes: Pupils equal, round and reactive to light.? Sclera nonicteric.? ENT: Pharynx normal.? Moist mucous membranes. cvs: rrr, [id number] . res: clear to auscultation ,no rhonchii or wheezing abd: no rebound or guarding ,nt, bs present. ext pulses present , no cyanosis ? Right leg-erythema, pain and swelling seems similar as yesterday -minimum improvment neuro: axo3 , nonfocal. Objective Data Active Medications Acetaminophen (Acetaminophen 325 Mg Tablet) 650 mg PO Q6H PRN PRN Reason: Pain, Mild (Pain Scale 1-3) Al Hydroxide/Mg Hydroxide (Magnesium Hydrox/Alum Hydrox 30 Ml Oral.Susp) 30 ml PO Q4H PRN PRN Reason: Heartburn/Nausea Aripiprazole (Aripiprazole 20 Mg Tablet) 20 mg PO BEDTIME [facility] Last Admin: 09/03/21 19:37 Dose: 20 mg Documented by: MERRICK Atorvastatin Calcium (Atorvastatin Calcium 40 Mg Tablet) 40 mg PO DAILY [facility] Last Admin: 09/04/21 07:52 Dose: 40 mg Documented by: PHILLIP Bupropion HCl (Bupropion Hcl Xl 300 Mg Tab.Er.24h) 300 mg PO DAILY [facility] Last Admin: 09/04/21 07:52 Dose: 300 mg Documented by: PHILLIP Escitalopram Oxalate (Escitalopram Oxalate 20 Mg Tablet) 20 mg PO DAILY [facility] Last Admin: 09/04/21 07:52 Dose: 20 mg Documented by: PHILLIP Glipizide (Glipizide Xl 5 Mg Tab.Er.24) 5 mg PO DAILY [facility] Last Admin: 09/04/21 07:52 Dose: 5 mg Documented by: PHILLIP Clindamycin Phosphate (Cleocin) 600 mg in 50 mls @ 100 mls/hr IV Q8H [facility] Last Infusion: 09/04/21 08:51 Dose: 0 mls/hr Documented by: PHILLIP Insulin Human Lispro (Insulin Lispro 100 Unit/Ml 3 Ml Vial) 0 unit SUBCUT QIDACHS [facility]; Protocol Last Admin: 09/04/21 12:15 Dose: Not Given Documented by: PHILLIP Non-Admin Reason: No Insulin Coverage Lorazepam (Lorazepam 0.5 Mg Tablet) 0.5 mg PO BID [facility] Last Admin: 09/04/21 07:52 Dose: 0.5 mg Documented by: PHILLIP Melatonin (Melatonin 3 Mg Tablet) 6 mg PO BEDTIME PRN PRN Reason: Insomnia Metformin HCl (Metformin Hcl 500 Mg Tablet) 500 mg PO DAILY [facility] Last Admin: 09/03/21 07:41 Dose: 500 mg Documented by: DABA Metformin HCl (Metformin Hcl 1,000 Mg Tablet) 1,000 mg PO DAILY@1700 [facility] Last Admin: 09/02/21 18:10 Dose: 1,000 mg Documented by: N-MALIR Metoprolol Tartrate (Metoprolol Tartrate 25 Mg Tablet) 25 mg PO BID [facility]; Protocol Last Admin: 09/04/21 07:52 Dose: 25 mg Documented by: PHILLIP Ondansetron HCl (Ondansetron Hcl 4 Mg/2 Ml Vial) 4 mg IVPUSH Q8H PRN PRN Reason: Nausea and Vomiting Pharmacy Consult (Consult Rx Perform Med Rec) 1 each MISCELLANE ONCE PRN PRN Reason: Consult order Pharmacy Consult (Consult Rx Vancomycin Dosing) 1 each MISCELLANE DAILY PRN PRN Reason: Consult order Rivaroxaban (Rivaroxaban 20 Mg Tablet) 20 mg PO BEDTIME [facility] Last Admin: 09/03/21 19:37 Dose: 20 mg Documented by: DWIGHTURQC Sodium Chloride (0.9 % Sodium Chloride Flush 3 Ml Syringe) 3 ml IVFLUSH QSHIFT [facility] Last Admin: 09/04/21 07:55 Dose: 3 ml Documented by: PHILLIP Labs CBC & Chem 7: 09/02/21 10:31 09/04/21 05:12 Labs: Laboratory Results - last 24 hr 09/03/21 09/03/21 09/04/21 16:20 19:29 05:12 Anion Gap 10 L Estim Creat Clear Calc 95.1 Estimated GFR > 60 POC Glucose 121 H 116 H Random Glucose 140 H Calcium 9.3 09/04/21 09/04/21 07:12 12:11 Anion Gap Estim Creat Clear Calc Estimated GFR POC Glucose 136 H 134 H Random Glucose Calcium Microbiology Microbiology Results: Microbiology 09/02/21 11:02 Blood Culture - Preliminary Blood - Venous No growth after 24 hours. 09/02/21 11:02 Blood Culture - Preliminary Blood - Venous No growth after 24 hours. Assessment and Plan (1) Cellulitis of right leg: Status: Acute Assessment and Plan: 71/m with diabetes, HLD, HTN, Schizophrenia here with? right leg cellulitis 1/Right Leg Celulitis --failed Keflex, negative DVT ? Blood culture pending, no fever ?leukocytosis resolving intilaly Started on Vanco and Zosyn-switched to clidamycin iv ?id evaluation noted -added mri leg, blood cultures prelim@24hrs 2/ HTN--continue home meds 3/Diabetes-resume home meds, add diabetic diet and SSI 4/ Chronic AFIB--rate control on metoprolol and continue Xarelto 5/Schizophrenia--continue? home meds DVT --continue Xarelto for AFIB Quality Stroke Does the patient have a stroke diagnosis?: No VTE Prior VTE?: No VTE Risk Level:: Medical - low VTE Device Contraindication: Treatment Not Indicated VTE Drug Contraindication: N/A - Med Ordered
--- NOTE | 2021-09-04 13:20 | MHC.CLN ---
NUTRITION CONSULT FOR CELLULITIS. DIET=DIABETIC 1800 KCAL. CHANGED TO DIABETIC 2000 KCAL TO INCREASE CALORIES. NO ADDITIONAL NUTRITION INTERVENTIONS.
[2021-09-04 16:24] LABS: Glucose, Whole Blood 197 mg/dL (60-115)
[2021-09-04] MEDS: Insulin Lispro 100 UNIT/ML 3 ML VIAL SUBCUT (16:29)
[2021-09-04] MEDS: ARIPiprazole 20 MG TABLET PO (20:11)
[2021-09-04] MEDS: Rivaroxaban 20 MG TABLET PO (20:11)
[2021-09-04 21:05] LABS: Glucose, Whole Blood 133 mg/dL (60-115)
[2021-09-05 03:20] VITALS: BP 110/51; PULSE 75; RESP 17; TEMP 36.9; O2SAT 95
[2021-09-05 06:20] LABS: Anion Gap 12 (12-20); Blood Urea Nitrogen 16 mg/dL (9-16); Calcium 9.5 mg/dL (8.4-10.2); Carbon Dioxide 26 mmol/L (22-29); Chloride 106 mmol/L (96-108); Creatinine Clr Calc Pharmacy 90.3; Estimated Glomerular Filt Rate > 60; Glucose Random 139 mg/dL (60-115); Potassium 4.6 mmol/L (3.3-5.1); Sodium 139 mmol/L (135-145)
[2021-09-05 07:14] VITALS: BP 139/74; PULSE 77; RESP 17; TEMP 36.4; O2SAT 99
[2021-09-05] MEDS: Atorvastatin Calcium 40 MG TABLET PO (07:27)
[2021-09-05] MEDS: Metoprolol Tartrate 25 MG TABLET PO ×2 (07:27→20:36)
[2021-09-05] MEDS: Escitalopram Oxalate 20 MG TABLET PO (07:27)
[2021-09-05] MEDS: Clindamycin Phosphate/D5W 600 MG/50 ML PIGGYBACK 100 MG IV ×3 (07:27→23:27)
[2021-09-05] MEDS: buPROPion HCl XL 300 MG TAB.ER.24H PO (07:27)
[2021-09-05] MEDS: glipiZIDE XL 5 MG TAB.ER.24 PO (07:28)
[2021-09-05] MEDS: LORazepam 0.5 MG TABLET PO ×2 (07:28→20:36)
[2021-09-05] MEDS: 0.9 % Sodium Chloride Flush 3 ML SYRINGE IVFLUSH ×3 (07:32→20:37)
[2021-09-05 07:43] LABS: Glucose, Whole Blood 130 mg/dL (60-115)
--- NOTE | 2021-09-05 08:41 | PM.DS ---
DS: Providers Provider Date of Service: 09/08/21 Date of admission: 09/02/21 13:17 Date of discharge: 09/08/21 Primary care physician: Unknown Physician Consults: 09/03/21 10:21 Consult to Infectious Diseases Routine Consulting Provider: Esther Guadarrama Reason for consultation: leg cellulitis Has provider been notified: No DS: Diagnosis Discharge Diagnosis (1) Cellulitis of right leg: Status: Acute DS: Summary Hospital Course Hospital Course: 71-year-old male with a past medical history of AFib on Xarelto, diabetes, schizophrenia, HLD was seen in? ED on with? complaining of fever T-max 100.4? and a painful calus at right sole. He was discharged wth oral Keflex and comes today with redness occupying most of the? leg as seen in the picture below, he says has has had chills, fever and denies trauma to the area, area is red, hot and mildly painful. Given Vanco and Zosyn in the ED. He does not meet sepsis criteria. Hospital course:patient came to the hospital because of right leg cellulitis failed outpatient therapy of p.o. antibiotics says-started on IV antibiotics- MRI of leg done which does not show evidence of bone infection. leg cellulitis seems improving Subsequently patient was switched to p.o. antibiotic- please complete the course of antibiotics. Patient advised for leg elevation, also given steriods cream just for superficial stasis dermatitis further management outpatient with PCP. Above management discussed with the patient and his in detail length both understand and in agreement with the above plan, time spent 50 minutes and 50% time spent on counseling. Significant findings: As above. Procedures performed: None. Treatment and response: As above. Complications: None. Time Spent with Patient Time attestation: Total time spent providing and/or coordinating discharge services: Discharge coordination time: Greater than 30 minutes Quality: Stroke Does the patient have a stroke diagnosis?: No Physical Exam Vital Signs: Vital Signs: Last Vital Signs vitals:09/08/21 bp:145/81mmhg hr: 68/min RR:18/min temp: 97.6*f BMI result Body Mass Index 32.1 Appearance: Alert.? Oriented X3.? not in distress.? Eyes: Pupils equal, round and reactive to light.? Sclera nonicteric.? ENT: Pharynx normal.? Moist mucous membranes. cvs: rrr, [id number] , no murmur res: clear to auscultation ,no rhonchii or wheezing abd: no rebound or guarding ,nt, bs present. ext pulses present , no cyanosis ? Right leg-erythema, pain and swelling - Improved significantly. neuro: axo3 , nonfocal. DS: Data Data Completed and Pending Labs on day of discharge: Laboratory Results - last 24 hr 09/04/21 09/04/21 09/04/21 12:11 16:14 21:01 Sodium Potassium Chloride Carbon Dioxide Anion Gap BUN Creatinine Estim Creat Clear Calc Estimated GFR POC Glucose 134 H 197 H 133 H Random Glucose Calcium 09/05/21 09/05/21 05:11 07:12 Sodium 139 Potassium 4.6 Chloride 106 Carbon Dioxide 26 Anion Gap 12 BUN 16 Creatinine 0.99 Estim Creat Clear Calc 90.3 Estimated GFR > 60 POC Glucose 130 H Random Glucose 139 H Calcium 9.5 Preliminary micro results at discharge 09/02/21 11:02 Blood Culture - Preliminary Blood - Venous No growth after 48 hours. 09/02/21 11:02 Blood Culture - Preliminary Blood - Venous No growth after 48 hours. Additional Comments Additional comments: MRI foot: IMPRESSION: Superficial skin wound at the plantar aspect of the fourth metatarsal head. No evidence of underlying osteomyelitis or septic arthritis.? US/US venous duplex LE RT IMPRESSION: No DVT demonstrated in the right lower extremity. ?US/US venous duplex LE RT IMPRESSION: 1. No evidence of deep venous thrombosis in the visualized veins of right lower extremity. 2. No evidence for superficial thrombosis in the right greater saphenous vein. 3. Mild to moderate subcutaneous edema in the right calf. Discharge Plan Discharge Patient Disposition: Home, Self-Care Discharge Diagnosis: Right leg cellulitis Referrals: Physician,Unknown J [Primary Care Provider] - 1 Week Discharge Medications: New hydrocortisone 1 % Cream 1 appl topical BID Qty: 2 RF: 0 doxycycline hyclate 100 mg capsule 100 mg PO BID Qty: 14 RF: 0 Continued glipizide 5 mg tablet extended release 24hr 1 tab PO DAILY RF: 0 escitalopram oxalate 20 mg tablet 1 tab PO DAILY RF: 0 metformin 500 mg tablet 1,000 mg PO DAILY@1700 RF: 0 multivitamin-iron (hematinic) Tablet 1 tab PO DAILY RF: 0 cholecalciferol (vitamin D3) [Vitamin D3] 25 mcg (1,000 unit) Capsule 25 mcg PO DAILY RF: 0 lisinopril 2.5 mg tablet 1 tab PO DAILY RF: 0 bupropion HCl 300 mg tablet extended release 24 hr 300 mg PO DAILY RF: 0 aripiprazole 20 mg tablet 20 mg PO BEDTIME RF: 0 lorazepam 0.5 mg tablet 0.5 mg PO BID RF: 0 metoprolol tartrate 25 mg tablet 25 mg PO BID RF: 0 atorvastatin 40 mg tablet 40 mg PO DAILY RF: 0 metformin 500 mg tablet 500 mg PO DAILY RF: 0 Xarelto 20 mg tablet 20 mg PO BEDTIME RF: 0 Discharge Orders: Discharge Order (Routine); Ordered 09/08/21 Ordered By: Jean Miller Diet: advance to usual diet and diabetic diet Activity on Discharge: As tolerated Stand Alone Forms: Patient Portal Discharge page Care Plan Goals: patient came to the hospital because of right leg cellulitis failed outpatient therapy of p.o. antibiotics says-started on IV antibiotics- MRI of leg done which does not show evidence of bone infection. leg cellulitis seems improved significantly. Subsequently patient was switched to p.o. antibiotic- please complete the course of antibiotics. further management outpatient with PCP. Health Concerns: as above. Plan of Treatment: As above. Assessment: As above.
[2021-09-05 11:17] VITALS: BP 157/60; PULSE 77; RESP 16; TEMP 36.7; O2SAT 97
[2021-09-05 11:41] LABS: Glucose, Whole Blood 127 mg/dL (60-115)
--- NOTE | 2021-09-05 12:25 | HO.PM.IMPN ---
Subjective Subjective Date of Service: 09/05/21 Interval History: right leg cellulitis, failed outpatient? Antibiotic therapy. Review of Systems still Little improvement in leg pain and erythema denies any chest pain or shortness of breath or abdominal pain or fever chills or cough or phlegm. Physical Exam Vital Signs: Vital Signs: Last Vital Signs Temp 98.1 F 09/05/21 11:17 Pulse 77 09/05/21 11:17 Resp 16 09/05/21 11:17 BP 157/60 H 09/05/21 11:17 Pulse Ox 97 09/05/21 11:17 BMI result Body Mass Index 32.1 Alert.? Oriented X3.? not in distress.? Eyes: Pupils equal, round and reactive to light.? Sclera nonicteric.? ENT: Pharynx normal.? Moist mucous membranes. cvs: rrr, [id number] . res: clear to auscultation ,no rhonchii or wheezing abd: no rebound or guarding ,nt, bs present. ext pulses present , no cyanosis Right leg-erythema, pain and swelling seems similar as yesterday neuro: axo3 , nonfocal. Objective Data Active Medications Acetaminophen (Acetaminophen 325 Mg Tablet) 650 mg PO Q6H PRN PRN Reason: Pain, Mild (Pain Scale 1-3) Al Hydroxide/Mg Hydroxide (Magnesium Hydrox/Alum Hydrox 30 Ml Oral.Susp) 30 ml PO Q4H PRN PRN Reason: Heartburn/Nausea Aripiprazole (Aripiprazole 20 Mg Tablet) 20 mg PO BEDTIME [facility] Last Admin: 09/04/21 20:11 Dose: 20 mg Documented by: SPENCERQC Atorvastatin Calcium (Atorvastatin Calcium 40 Mg Tablet) 40 mg PO DAILY [facility] Last Admin: 09/05/21 07:27 Dose: 40 mg Documented by: BERNA Bupropion HCl (Bupropion Hcl Xl 300 Mg Tab.Er.24h) 300 mg PO DAILY [facility] Last Admin: 09/05/21 07:27 Dose: 300 mg Documented by: BERNA Escitalopram Oxalate (Escitalopram Oxalate 20 Mg Tablet) 20 mg PO DAILY [facility] Last Admin: 09/05/21 07:27 Dose: 20 mg Documented by: BERNA Glipizide (Glipizide Xl 5 Mg Tab.Er.24) 5 mg PO DAILY [facility] Last Admin: 09/05/21 07:28 Dose: 5 mg Documented by: BERNA Clindamycin Phosphate (Cleocin) 600 mg in 50 mls @ 100 mls/hr IV Q8H [facility] Last Infusion: 09/05/21 08:35 Dose: 0 mls/hr Documented by: BERNA Insulin Human Lispro (Insulin Lispro 100 Unit/Ml 3 Ml Vial) 0 unit SUBCUT QIDACHS [facility]; Protocol Last Admin: 09/05/21 11:42 Dose: Not Given Documented by: BERNA Non-Admin Reason: No Insulin Coverage Lorazepam (Lorazepam 0.5 Mg Tablet) 0.5 mg PO BID [facility] Last Admin: 09/05/21 07:28 Dose: 0.5 mg Documented by: BERNA Melatonin (Melatonin 3 Mg Tablet) 6 mg PO BEDTIME PRN PRN Reason: Insomnia Metformin HCl (Metformin Hcl 500 Mg Tablet) 500 mg PO DAILY [facility] Last Admin: 09/03/21 07:41 Dose: 500 mg Documented by: BERNA Metformin HCl (Metformin Hcl 1,000 Mg Tablet) 1,000 mg PO DAILY@1700 [facility] Last Admin: 09/02/21 18:10 Dose: 1,000 mg Documented by: TRISTIN-MALIR Metoprolol Tartrate (Metoprolol Tartrate 25 Mg Tablet) 25 mg PO BID [facility]; Protocol Last Admin: 09/05/21 07:27 Dose: 25 mg Documented by: BERNA Ondansetron HCl (Ondansetron Hcl 4 Mg/2 Ml Vial) 4 mg IVPUSH Q8H PRN PRN Reason: Nausea and Vomiting Pharmacy Consult (Consult Rx Perform Med Rec) 1 each MISCELLANE ONCE PRN PRN Reason: Consult order Pharmacy Consult (Consult Rx Vancomycin Dosing) 1 each MISCELLANE DAILY PRN PRN Reason: Consult order Rivaroxaban (Rivaroxaban 20 Mg Tablet) 20 mg PO BEDTIME [facility] Last Admin: 09/04/21 20:11 Dose: 20 mg Documented by: MERRICK Sodium Chloride (0.9 % Sodium Chloride Flush 3 Ml Syringe) 3 ml IVFLUSH QSHIFT [facility] Last Admin: 09/05/21 07:32 Dose: 3 ml Documented by: BERNA Labs CBC & Chem 7: 09/02/21 10:31 09/05/21 05:11 Labs: Laboratory Results - last 24 hr 09/04/21 09/04/21 09/05/21 16:14 21:01 05:11 Anion Gap 12 Estim Creat Clear Calc 90.3 Estimated GFR > 60 POC Glucose 197 H 133 H Random Glucose 139 H Calcium 9.5 09/05/21 09/05/21 07:12 11:16 Anion Gap Estim Creat Clear Calc Estimated GFR POC Glucose 130 H 127 H Random Glucose Calcium Microbiology Microbiology Results: Microbiology 09/02/21 11:02 Blood Culture - Preliminary Blood - Venous No growth after 48 hours. 09/02/21 11:02 Blood Culture - Preliminary Blood - Venous No growth after 48 hours. Assessment and Plan (1) Cellulitis of right leg: Status: Acute Assessment and Plan: 71/m with diabetes, HLD, HTN, Schizophrenia here with? right leg cellulitis 1/Right Leg Celulitis --failed Keflex, negative DVT ? Blood culture pending, no fever ?leukocytosis resolving intilaly Started on Vanco and Zosyn-switched to clidamycin iv ?id evaluation noted -added mri leg, blood cultures prelim@24hrs 2/ HTN--continue home meds 3/Diabetes-resume home meds, add diabetic diet and SSI 4/ Chronic AFIB--rate control on metoprolol and continue Xarelto 5/Schizophrenia--continue? home meds DVT --continue Xarelto for AFIB Quality Stroke Does the patient have a stroke diagnosis?: No VTE Prior VTE?: No VTE Risk Level:: Medical - low VTE Device Contraindication: Treatment Not Indicated VTE Drug Contraindication: N/A - Med Ordered
[2021-09-05 15:05] VITALS: BP 125/73; PULSE 74; RESP 19; TEMP 36.7; O2SAT 98
[2021-09-05 16:40] LABS: Glucose, Whole Blood 146 mg/dL (60-115)
[2021-09-05 20:00] VITALS: BP 110/53; PULSE 77; RESP 18; TEMP 36.6; O2SAT 99
[2021-09-05 20:36] VITALS: BP 110/52; PULSE 72
[2021-09-05] MEDS: ARIPiprazole 20 MG TABLET PO (20:36)
[2021-09-05] MEDS: Rivaroxaban 20 MG TABLET PO (20:37)
[2021-09-05] MEDS: Insulin Lispro 100 UNIT/ML 3 ML VIAL SUBCUT (20:37)
[2021-09-05 20:56] LABS: Glucose, Whole Blood 162 mg/dL (60-115)
[2021-09-06] VITALS (8 sets, daily range): BP systolic 109–156; BP diastolic 57–88; PULSE 59–86; RESP 17–22; TEMP 36.1–36.9; O2SAT 95–98
[2021-09-06 05:56] LABS: Creatinine Clr Calc Pharmacy 81.2; Estimated Glomerular Filt Rate > 60
[2021-09-06 07:33] LABS: Glucose, Whole Blood 131 mg/dL (60-115)
[2021-09-06] MEDS: Atorvastatin Calcium 40 MG TABLET PO (07:44)
[2021-09-06] MEDS: Clindamycin Phosphate/D5W 600 MG/50 ML PIGGYBACK 100 MG IV ×2 (07:44→15:33)
[2021-09-06] MEDS: 0.9 % Sodium Chloride Flush 3 ML SYRINGE IVFLUSH ×3 (07:44→19:41)
[2021-09-06] MEDS: Metoprolol Tartrate 25 MG TABLET PO ×2 (07:44→19:41)
[2021-09-06] MEDS: buPROPion HCl XL 300 MG TAB.ER.24H PO (07:45)
[2021-09-06] MEDS: LORazepam 0.5 MG TABLET PO ×2 (07:45→19:41)
[2021-09-06] MEDS: glipiZIDE XL 5 MG TAB.ER.24 PO (07:45)
[2021-09-06] MEDS: Escitalopram Oxalate 20 MG TABLET PO (07:45)
--- NOTE | 2021-09-06 09:27 | MHC.CM.PN ---
Addendum entered by Gela Morrow 09/06/21 10:13: dc cancelled for today. RN aware Original Note: PATIENT IS DISCHARGED HOME - SELF CARE IMM 08/26 IN CHART RN AWARE OF PLAN
--- NOTE | 2021-09-06 10:10 | P.PNIM_ITS ---
Subjective Subjective Date of Service: 09/06/21 Interval History: right leg cellulitis, failed outpatient? Antibiotic therapy. Review of Systems improvin leg pain and erythema ?denies any chest pain or shortness of breath or abdominal pain or fever chills or cough or phlegm. Physical Exam Vital Signs: Vital Signs: Last Vital Signs Temp 97.1 F 09/06/21 07:12 Pulse 74 09/06/21 07:12 Resp 18 09/06/21 07:12 BP 131/88 09/06/21 07:12 Pulse Ox 98 09/06/21 07:12 BMI result Body Mass Index 32.1 Alert.? Oriented X3.? not in distress.? Eyes: Pupils equal, round and reactive to light.? Sclera nonicteric.? ENT: Pharynx normal.? Moist mucous membranes. cvs: rrr, [id number] . res: clear to auscultation ,no rhonchii or wheezing abd: no rebound or guarding ,nt, bs present. ext pulses present , no cyanosis Right leg-erythema, pain and swelling seems improving neuro: axo3 , nonfocal. Objective Data Active Medications Acetaminophen (Acetaminophen 325 Mg Tablet) 650 mg PO Q6H PRN PRN Reason: Pain, Mild (Pain Scale 1-3) Al Hydroxide/Mg Hydroxide (Magnesium Hydrox/Alum Hydrox 30 Ml Oral.Susp) 30 ml PO Q4H PRN PRN Reason: Heartburn/Nausea Aripiprazole (Aripiprazole 20 Mg Tablet) 20 mg PO BEDTIME [facility] Last Admin: 09/05/21 20:36 Dose: 20 mg Documented by: ERICH Atorvastatin Calcium (Atorvastatin Calcium 40 Mg Tablet) 40 mg PO DAILY [facility] Last Admin: 09/06/21 07:44 Dose: 40 mg Documented by: SHAMA Bupropion HCl (Bupropion Hcl Xl 300 Mg Tab.Er.24h) 300 mg PO DAILY [facility] Last Admin: 09/06/21 07:45 Dose: 300 mg Documented by: SHAMA Escitalopram Oxalate (Escitalopram Oxalate 20 Mg Tablet) 20 mg PO DAILY [facility] Last Admin: 09/06/21 07:45 Dose: 20 mg Documented by: SHAMA Glipizide (Glipizide Xl 5 Mg Tab.Er.24) 5 mg PO DAILY [facility] Last Admin: 09/06/21 07:45 Dose: 5 mg Documented by: SHAMA Clindamycin Phosphate (Cleocin) 600 mg in 50 mls @ 100 mls/hr IV Q8H [facility] Last Infusion: 09/06/21 09:25 Dose: 0 mls/hr Documented by: SHAMA Insulin Human Lispro (Insulin Lispro 100 Unit/Ml 3 Ml Vial) 0 unit SUBCUT QIDACHS [facility]; Protocol Last Admin: 09/06/21 07:38 Dose: Not Given Documented by: SHAMA Non-Admin Reason: No Insulin Coverage Lorazepam (Lorazepam 0.5 Mg Tablet) 0.5 mg PO BID [facility] Last Admin: 09/06/21 07:45 Dose: 0.5 mg Documented by: SHAMA Melatonin (Melatonin 3 Mg Tablet) 6 mg PO BEDTIME PRN PRN Reason: Insomnia Metformin HCl (Metformin Hcl 500 Mg Tablet) 500 mg PO DAILY [facility] Last Admin: 09/03/21 07:41 Dose: 500 mg Documented by: DABGuera Metformin HCl (Metformin Hcl 1,000 Mg Tablet) 1,000 mg PO DAILY@1700 [facility] Last Admin: 09/02/21 18:10 Dose: 1,000 mg Documented by: TRISTIN-MALIR Metoprolol Tartrate (Metoprolol Tartrate 25 Mg Tablet) 25 mg PO BID [facility]; Protocol Last Admin: 09/06/21 07:44 Dose: 25 mg Documented by: SHAMA Ondansetron HCl (Ondansetron Hcl 4 Mg/2 Ml Vial) 4 mg IVPUSH Q8H PRN PRN Reason: Nausea and Vomiting Pharmacy Consult (Consult Rx Perform Med Rec) 1 each MISCELLANE ONCE PRN PRN Reason: Consult order Pharmacy Consult (Consult Rx Vancomycin Dosing) 1 each MISCELLANE DAILY PRN PRN Reason: Consult order Rivaroxaban (Rivaroxaban 20 Mg Tablet) 20 mg PO BEDTIME [facility] Last Admin: 09/05/21 20:37 Dose: 20 mg Documented by: ERICH Sodium Chloride (0.9 % Sodium Chloride Flush 3 Ml Syringe) 3 ml IVFLUSH QSHIFT [facility] Last Admin: 09/06/21 07:44 Dose: 3 ml Documented by: SAHMA Labs CBC & Chem 7: 09/02/21 10:31 09/06/21 05:10 Labs: Laboratory Results - last 24 hr 09/05/21 09/05/21 09/05/21 11:16 16:14 20:33 Estim Creat Clear Calc Estimated GFR POC Glucose 127 H 146 H 162 H 09/06/21 09/06/21 05:10 07:15 Estim Creat Clear Calc 81.2 Estimated GFR > 60 POC Glucose 131 H Assessment and Plan (1) Cellulitis of right leg: Status: Acute Assessment and Plan: 71/m with diabetes, HLD, HTN, Schizophrenia here with? right leg cellulitis 1/Right Leg Celulitis --failed Keflex, negative DVT ? Blood culture pending, no fever ?leukocytosis resolving intilaly Started on Vanco and Zosyn-switched to clidamycin iv ?id evaluation noted -added mri leg, blood cultures prelim@24hrs 2/ HTN--continue home meds 3/Diabetes-resume home meds, add diabetic diet and SSI 4/ Chronic AFIB--rate control on metoprolol and continue Xarelto 5/Schizophrenia--continue? home meds DVT --continue Xarelto for AFIB Quality Stroke Does the patient have a stroke diagnosis?: No VTE Prior VTE?: No VTE Risk Level:: Medical - low VTE Device Contraindication: Treatment Not Indicated VTE Drug Contraindication: N/A - Med Ordered
[2021-09-06 11:28] LABS: Glucose, Whole Blood 142 mg/dL (60-115)
[2021-09-06] MEDS: Hydrocortisone 1 % Cream 28.35 GM TUBE 1 APPL TOPICAL ×2 (14:55→19:42)
[2021-09-06 16:51] LABS: Glucose, Whole Blood 134 mg/dL (60-115)
[2021-09-06] MEDS: Rivaroxaban 20 MG TABLET PO (19:41)
[2021-09-06] MEDS: ARIPiprazole 20 MG TABLET PO (19:41)
[2021-09-06 20:41] LABS: Glucose, Whole Blood 176 mg/dL (60-115)
[2021-09-06] MEDS: Insulin Lispro 100 UNIT/ML 3 ML VIAL SUBCUT (22:05)
[2021-09-07] VITALS (7 sets, daily range): BP systolic 111–134; BP diastolic 58–67; PULSE 62–75; RESP 16–18; TEMP 35.8–36.4; O2SAT 96–100
[2021-09-07] MEDS: Clindamycin Phosphate/D5W 600 MG/50 ML PIGGYBACK 100 MG IV ×4 (00:55→23:01)
[2021-09-07 07:36] LABS: Glucose, Whole Blood 124 mg/dL (60-115)
[2021-09-07 07:40] LABS: Creatinine Clr Calc Pharmacy 83.5; Estimated Glomerular Filt Rate > 60
[2021-09-07] MEDS: Escitalopram Oxalate 20 MG TABLET PO (09:25)
[2021-09-07] MEDS: glipiZIDE XL 5 MG TAB.ER.24 PO (09:25)
[2021-09-07] MEDS: buPROPion HCl XL 300 MG TAB.ER.24H PO (09:25)
[2021-09-07] MEDS: LORazepam 0.5 MG TABLET PO ×2 (09:25→20:45)
[2021-09-07] MEDS: Atorvastatin Calcium 40 MG TABLET PO (09:25)
[2021-09-07] MEDS: Hydrocortisone 1 % Cream 28.35 GM TUBE 1 APPL TOPICAL ×2 (09:26→20:49)
[2021-09-07] MEDS: Metoprolol Tartrate 25 MG TABLET PO ×2 (09:26→20:45)
[2021-09-07] MEDS: 0.9 % Sodium Chloride Flush 3 ML SYRINGE IVFLUSH ×3 (09:26→20:45)
--- NOTE | 2021-09-07 10:58 | P.PNIM_ITS ---
Subjective Subjective Date of Service: 09/08/21 Interval History: leg cellulitis Review of Systems improving slowly has venostasis changes also on both legs Physical Exam Vital Signs: Vital Signs: Last Vital Signs Temp 96.5 F L 09/07/21 08:00 Pulse 73 09/07/21 08:00 Resp 18 09/07/21 08:00 BP 129/58 L 09/07/21 08:00 Pulse Ox 98 09/07/21 08:00 BMI result Body Mass Index 32.1 Alert.? Oriented X3.? not in distress.? cvs: rrr, [id number] . res: clear to auscultation ,no rhonchii or wheezing abd: no rebound or guarding ,nt, bs present. ext pulses present , no cyanosis Right leg-erythema, pain and swelling seems slow improving neuro: axo3 , nonfocal. Objective Data Active Medications Acetaminophen (Acetaminophen 325 Mg Tablet) 650 mg PO Q6H PRN PRN Reason: Pain, Mild (Pain Scale 1-3) Al Hydroxide/Mg Hydroxide (Magnesium Hydrox/Alum Hydrox 30 Ml Oral.Susp) 30 ml PO Q4H PRN PRN Reason: Heartburn/Nausea Aripiprazole (Aripiprazole 20 Mg Tablet) 20 mg PO BEDTIME [facility] Last Admin: 09/06/21 19:41 Dose: 20 mg Documented by: DEBORAH Atorvastatin Calcium (Atorvastatin Calcium 40 Mg Tablet) 40 mg PO DAILY [facility] Last Admin: 09/07/21 09:25 Dose: 40 mg Documented by: ANKIT Bupropion HCl (Bupropion Hcl Xl 300 Mg Tab.Er.24h) 300 mg PO DAILY [facility] Last Admin: 09/07/21 09:25 Dose: 300 mg Documented by: ANKIT Escitalopram Oxalate (Escitalopram Oxalate 20 Mg Tablet) 20 mg PO DAILY [facility] Last Admin: 09/07/21 09:25 Dose: 20 mg Documented by: ANKIT Glipizide (Glipizide Xl 5 Mg Tab.Er.24) 5 mg PO DAILY [facility] Last Admin: 09/07/21 09:25 Dose: 5 mg Documented by: ANKIT Hydrocortisone (Hydrocortisone 1 % Cream 28.35 Gm Tube) 1 appl TOPICAL BID [facility] Last Admin: 09/07/21 09:26 Dose: 1 appl Documented by: ANKIT Clindamycin Phosphate (Cleocin) 600 mg in 50 mls @ 100 mls/hr IV Q8H [facility] Last Infusion: 09/07/21 09:53 Dose: 0 mls/hr Documented by: ANKIT Insulin Human Lispro (Insulin Lispro 100 Unit/Ml 3 Ml Vial) 0 unit SUBCUT QIDACHS [facility]; Protocol Last Admin: 09/07/21 07:44 Dose: Not Given Documented by: ANKIT Non-Admin Reason: No Insulin Coverage Lorazepam (Lorazepam 0.5 Mg Tablet) 0.5 mg PO BID [facility] Last Admin: 09/07/21 09:25 Dose: 0.5 mg Documented by: ANKIT Melatonin (Melatonin 3 Mg Tablet) 6 mg PO BEDTIME PRN PRN Reason: Insomnia Metformin HCl (Metformin Hcl 500 Mg Tablet) 500 mg PO DAILY [facility] Last Admin: 09/03/21 07:41 Dose: 500 mg Documented by: DABGuera Metformin HCl (Metformin Hcl 1,000 Mg Tablet) 1,000 mg PO DAILY@1700 [facility] Last Admin: 09/02/21 18:10 Dose: 1,000 mg Documented by: TRISTIN-MALIR Metoprolol Tartrate (Metoprolol Tartrate 25 Mg Tablet) 25 mg PO BID [facility]; Protocol Last Admin: 09/07/21 09:26 Dose: 25 mg Documented by: ANKIT Ondansetron HCl (Ondansetron Hcl 4 Mg/2 Ml Vial) 4 mg IVPUSH Q8H PRN PRN Reason: Nausea and Vomiting Pharmacy Consult (Consult Rx Perform Med Rec) 1 each MISCELLANE ONCE PRN PRN Reason: Consult order Pharmacy Consult (Consult Rx Vancomycin Dosing) 1 each MISCELLANE DAILY PRN PRN Reason: Consult order Rivaroxaban (Rivaroxaban 20 Mg Tablet) 20 mg PO BEDTIME [facility] Last Admin: 09/06/21 19:41 Dose: 20 mg Documented by: DEBORAH Sodium Chloride (0.9 % Sodium Chloride Flush 3 Ml Syringe) 3 ml IVFLUSH QSHIFT [facility] Last Admin: 09/07/21 09:26 Dose: 3 ml Documented by: ANKIT Labs CBC & Chem 7: 09/02/21 10:31 09/08/21 05:41 Labs: Laboratory Results - last 24 hr 09/06/21 09/06/21 09/06/21 11:17 15:40 20:19 Estim Creat Clear Calc Estimated GFR POC Glucose 142 H 134 H 176 H 09/07/21 09/07/21 06:07 07:05 Estim Creat Clear Calc 83.5 Estimated GFR > 60 POC Glucose 124 H Assessment and Plan (1) Cellulitis of right leg: Status: Acute Assessment and Plan: 71/m with diabetes, HLD, HTN, Schizophrenia here with? right leg cellulitis 1/Right Leg Celulitis --failed Keflex, negative DVT ? Blood culture pending, no fever ?leukocytosis resolved intilaly Started on Vanco and Zosyn-switched to clidamycin iv day4 ?id evaluation noted -added mri leg, blood cultures prelim@24hrs d/w surgery at bedside - probable combination of vanostasis/cellulitis -will add us venous -superficial venous system-no dvt /mild edema leg erythema /swelling improving 2/ HTN--continue home meds 3/Diabetes-resume home meds, add diabetic diet and SSI 4/ Chronic AFIB--rate control on metoprolol and continue Xarelto 5/Schizophrenia--continue? home meds DVT --continue Xarelto for AFIB Quality Stroke Does the patient have a stroke diagnosis?: No VTE Prior VTE?: No VTE Risk Level:: Medical - low VTE Device Contraindication: Treatment Not Indicated VTE Drug Contraindication: N/A - Med Ordered
[2021-09-07 11:49] LABS: Glucose, Whole Blood 166 mg/dL (60-115)
[2021-09-07] MEDS: Insulin Lispro 100 UNIT/ML 3 ML VIAL SUBCUT ×2 (12:14→20:45)
[2021-09-07 16:57] LABS: Glucose, Whole Blood 131 mg/dL (60-115)
--- NOTE | 2021-09-07 19:36 | PM.IDPN ---
Subjective Subjective Date of Service: 09/06/21 Interval History: he has some reddish areas on legs Critical Care Time (minutes): 15 Comment: he feels about the same Objective Data Labs CBC & Chem 7: 09/02/21 10:31 09/07/21 06:07 Labs: Laboratory Results - last 24 hr 09/06/21 09/07/21 09/07/21 20:19 06:07 07:05 Creatinine 1.07 Estim Creat Clear Calc 83.5 Estimated GFR > 60 POC Glucose 176 H 124 H 09/07/21 09/07/21 11:19 16:24 Creatinine Estim Creat Clear Calc Estimated GFR POC Glucose 166 H 131 H Microbiology Microbiology Results: Microbiology 09/02/21 11:02 Blood - Venous Blood Culture - Final No growth after 5 days. 09/02/21 11:02 Blood - Venous Blood Culture - Final No growth after 5 days. Physical Exam Vital Signs: Vital Signs: Last Vital Signs Temp 97.5 F 09/07/21 19:03 Pulse 73 09/07/21 19:03 Resp 16 09/07/21 19:03 BP 134/64 09/07/21 19:03 Pulse Ox 98 09/07/21 19:03 BMI result Body Mass Index 32.1 Const: General: cooperative HENMT: Mouth: Normal oral and palatal mucosa present Resp: Effort & Inspection: normal respiratory effort Cardio: Rate: regular rate Rhythm: regular rhythm GI: Palpation (GI): Soft to palpation and nontender Extrem: Other: pale reddish area leg Assessment and Plan Assessment and plan (1) Cellulitis of right leg: Problem details: he has same stable area,likely venous stasis Status: Acute Assessment and Plan: Would change to po Doxycycline and use fluocinonide cream to area of leg. Time Spent With Patient Time: Total time spent is greater than 50% in coordination of care (as documented) at patient's floor/unit and/or counseling patient: Time with patient: 15 - 24 minutes
[2021-09-07 20:13] LABS: Glucose, Whole Blood 158 mg/dL (60-115)
[2021-09-07] MEDS: Rivaroxaban 20 MG TABLET PO (20:45)
[2021-09-07] MEDS: ARIPiprazole 20 MG TABLET PO (20:45)
[2021-09-08 03:20] VITALS: BP 118/65; PULSE 75; RESP 14; TEMP 36; O2SAT 96
[2021-09-08 07:03] LABS: Creatinine Clr Calc Pharmacy 83.5; Estimated Glomerular Filt Rate > 60
[2021-09-08 07:10] VITALS: BP 145/81; PULSE 68; RESP 18; TEMP 36.4; O2SAT 99
[2021-09-08] MEDS: Insulin Lispro 100 UNIT/ML 3 ML VIAL SUBCUT (07:55)
[2021-09-08] MEDS: 0.9 % Sodium Chloride Flush 3 ML SYRINGE IVFLUSH (07:55)
[2021-09-08] MEDS: Metoprolol Tartrate 25 MG TABLET PO (07:56)
[2021-09-08] MEDS: buPROPion HCl XL 300 MG TAB.ER.24H PO (07:56)
[2021-09-08] MEDS: Escitalopram Oxalate 20 MG TABLET PO (07:56)
[2021-09-08] MEDS: Clindamycin Phosphate/D5W 600 MG/50 ML PIGGYBACK 100 MG IV (07:56)
[2021-09-08] MEDS: glipiZIDE XL 5 MG TAB.ER.24 PO (07:56)
[2021-09-08] MEDS: Hydrocortisone 1 % Cream 28.35 GM TUBE 1 APPL TOPICAL (07:57)
[2021-09-08] MEDS: Atorvastatin Calcium 40 MG TABLET PO (07:59)
[2021-09-08 08:00] LABS: Glucose, Whole Blood 165 mg/dL (60-115)
--- NOTE | 2021-09-08 10:20 | MHC.CM.PN ---
PT CLEARED TO DC HOME TODAY WITH NO SERVICES FAMILY TO TRANSPORT
[2021-09-08 11:57] LABS: Glucose, Whole Blood 139 mg/dL (60-115)
== END 2021-09-08 13:12 | disposition home or self-care (01) | DRG 603 ==
LOC: HO.ED 11:01 → HO.EDOVER 16:10 → HO.S3 09-03 00:11
PROVIDERS: Admitting Provider Internal Medicine; Emergency Provider Emergency Medicine; Visit Provider Internal Medicine
DX: L03.115 Cellulitis of right lower limb (principal); E87.2 Acidosis; I48.20 Chronic atrial fibrillation, unspecified; E78.5 Hyperlipidemia, unspecified; E11.9 Type 2 diabetes mellitus without complications; F20.9 Schizophrenia, unspecified; Z20.822 Contact with and (suspected) exposure to COVID-19; Z79.84 Long term (current) use of oral hypoglycemic drugs; Z79.01 Long term (current) use of anticoagulants; Z79.899 Other long term (current) drug therapy
CPT/HCPCS: 36415; 71045; 73620; 73720; 80048; 80076; 81003; 82565; 82947; 83605; 83735; 83880; 85025; 85610; 85730; 86140; 87040; 87635; 93971; 96361; 96365; 96367; 99283; 99284; 99285; A9585; J2543; J3370

== ENCOUNTER 2022-02-27 13:00 | Outpatient (RCR) | payer MEDICARE, SELFPAY | END 2022-03-28 16:16 | disposition home or self-care (01) | LOC: HO.PTCHIC 13:00 | PROVIDERS: PCP Family Medicine; Visit Provider Family Medicine | DX: M62.81 Muscle weakness (generalized) (principal) | CPT/HCPCS: 97110; 97112; 97162 ==

== ENCOUNTER 2022-06-18 18:54 | Emergency (ER) | payer MEDICARE, SELFPAY ==
--- NOTE | ~2022-06-18 | CT_ITS ---
EXAMINATION: CT HEAD WITHOUT CONTRAST CT CERVICAL SPINE WITHOUT CONTRAST CLINICAL INFORMATION: Fall on anticoagulation. COMPARISON: CT of the head and cervical spine dated 01/27/2021. TECHNIQUE: Contiguous axial imaging was performed from the skull base to vertex without intravenous administration of contrast. Contiguous axial CT images of the cervical spine were obtained without contrast. Sagittal and coronal reformats were provided and reviewed. This CT examination was performed using dose optimization techniques as appropriate, variously including the following: *Automated exposure control *Adjustment of mA and/or kV according to patient size (this includes techniques or standardized protocols for targeted exams where dose is matched to indication/reason for exam; i.e. extremities or head) *Use of iterative reconstruction technique DLP: 1625 mGy-cm FINDINGS: HEAD: There is no evidence of acute intracranial hemorrhage or territorial infarction. No abnormal mass effect or midline shift is seen. [id number]-[id number] matter differentiation is well preserved. No extra-axial fluid collections are identified. Prominence of the ventricles and sulci consistent with diffuse atrophy. Mild hypoattenuation of the periventricular white matter consistent mild chronic microvascular ischemic disease. Calcifications redemonstrated within the scalp. The osseous structures and soft tissues are otherwise normal. The mastoid air cells and visualized portions of the paranasal sinuses are well aerated. CERVICAL SPINE: The cervical lordosis is maintained. Minimal grade 1 retrolisthesis of C3 on C4, unchanged. No acute fracture or subluxation. No loss of vertebral body height. Multilevel loss of intervertebral disc height with degenerative endplate changes and endplate osteophytes, most severe at C3-C4. Multilevel bilateral facet arthropathy. No lytic or blastic osseous lesion. Unremarkable prevertebral soft tissues. No abnormal soft tissue mass or fluid collection. Thyroid within normal limits. Visualized lung apices are clear. Multilevel bilateral neural foraminal stenosis, unchanged. CT/CT cervical spine wo IV con IMPRESSION: HEAD: No acute intracranial hemorrhage or mass effect. Mild atrophy and chronic microvascular ischemic disease appear unchanged. CERVICAL SPINE: No acute fracture or subluxation. Multilevel degenerative disc disease with facet arthropathy and neural foraminal stenosis, unchanged.
[2022-06-18 19:16] VITALS: BP 118/67; PULSE 73; RESP 18; TEMP 36.4; O2SAT 97; BMI 33.3
--- NOTE | 2022-06-18 23:09 | ED_ITS ---
HPI - Fall General Chief Complaint: Fall Stated Complaint: Fall 06/18/22 Time Seen by Provider: 06/18/22 22:51 Source: patient and family Mode of arrival: ambulatory Limitations: no limitations History of Present Illness HPI Narrative: Patient comes to the emergency room complaining of a fall, forehead abrasion. The patient states that he was walking outside of his house, going downhill. Instead of walking down the driveway, patient decided to take a short cut and go through the [place]. Patient tripped and fell forward. Patient states that he did not lose consciousness, patient did hit his head, patient is on Xarelto. Patient states that other than minor discomfort at the abrasions side, he has no headache, no other symptoms. Patient was able to ambulate after the fall. made him come because he is on Xarelto. Related Data Home Medications Medication Instructions Recorded Confirmed aripiprazole 20 mg tablet 20 mg PO BEDTIME 07/11/21 09/02/21 atorvastatin 40 mg tablet 40 mg PO DAILY 07/11/21 09/02/21 bupropion HCl 300 mg 24 hr tablet, 300 mg PO DAILY 07/11/21 09/02/21 extended release lorazepam 0.5 mg tablet 0.5 mg PO BID 07/11/21 09/02/21 metformin 500 mg tablet 500 mg PO DAILY 07/11/21 09/02/21 metoprolol tartrate 25 mg tablet 25 mg PO BID 07/11/21 09/02/21 rivaroxaban 20 mg tablet (Xarelto) 20 mg PO BEDTIME 07/11/21 09/02/21 cholecalciferol (vitamin D3) 25 25 mcg PO DAILY 09/02/21 09/02/21 mcg (1,000 unit) capsule (Vitamin D3) escitalopram oxalate 20 mg tablet 1 tab PO DAILY 09/02/21 09/02/21 glipizide 5 mg tablet, extended 1 tab PO DAILY 09/02/21 09/02/21 release 24 hr lisinopril 2.5 mg tablet 1 tab PO DAILY 09/02/21 09/02/21 metformin 500 mg tablet 1,000 mg PO DAILY@1700 09/02/21 09/02/21 multivitamin-iron (hematinic) 1 tab PO DAILY 09/02/21 09/02/21 Previous Rx's Medication Instructions Recorded doxycycline hyclate 100 mg tablet 100 mg PO DAILY #14 tabs 09/08/21 hydrocortisone 1 % topical cream 1 appl topical BID PRN skin 09/08/21 irritation #28.35 grams Allergies Allergy/AdvReac Type Severity Reaction Status Date / Time No Known Allergies Allergy Verified 09/02/21 13:15 Review of Systems Review of Systems: Constitutional : No Weight loss, No Fever, No Chills, No Night Sweats, No Fatigue, No Malaise ENT/Mouth : No Hearing loss, No Ear Pain, No Nasal Congestion, No Sinus Pain, No Hoarseness, No sore throat, No Rhinorrhea, No Swallowing Difficulty Eyes: No Eye Pain, No Swelling, No Redness, No Foreign Body, No Discharge, No Vision Changes Cardiovascular : No Chest Pain, No SOB, No Dyspnea on Exertion, No Orthopnea, No Edema, No Palpitations Respiratory : No Cough, No Sputum, No Wheezing, No Smoke Exposure, No Dyspnea Gastrointestinal : No Nausea, No Vomiting, No Diarrhea, No Constipation, No abdominal Pain, No Hematochezia, No Melena Genitourinary : no irregular bleeding, No Dysuria, No Urinary Frequency, No Hematuria, No Urinary Incontinence, No Urgency, No Flank Pain, No Urinary Flow Changes, No Hesitancy Musculoskeletal : No joint pain, No Myalgias, No Joint Swelling Skin : Abrasion to the left side of the forehead Neuro : No Weakness, No Numbness, No Paresthesias, No Loss of Consciousness, No Dizziness, No Headache Psych : No Anxiety/Panic, No Depression, No SI/HI/AH/VH, No Social Issues, Heme/Lymph: No Bruising, No Bleeding,No Lymphadenopathy Endocrine : No Polyuria, No Polydipsia, No Temperature Intolerance [facility] Past Medical History Medical History Acidosis, lactic Afib Diabetes type 2, controlled HLD (hyperlipidemia) HTN (hypertension) Lower respiratory infection (e.g., bronchitis, pneumonia, pneumonitis, pulmonitis) Schizophrenia Surgical History History of total right knee replacement (TKR) Social History Social History Household Members: Spouse Housing: House Unable to assess alcohol history related to: Unknown Alcohol intake: former Patient Tobacco Use Status: Tobacco use Unknown e-Cigarette/Vaping Use: Never Used Advance Directives: No Advance Directives Information Provided: No service: No Current occupational status: retired Physical Exam Vital Signs: Vital Signs: Last Vital Signs Temp 97.5 F 06/18/22 19:16 Pulse 73 06/18/22 19:16 Resp 18 06/18/22 19:16 BP 118/67 06/18/22 19:16 Pulse Ox 97 06/18/22 19:16 O2 Del Method 06/18/22 19:16 BMI result Body Mass Index 33.3 Const: Other: Appearance: Alert. Oriented X3. No acute distress. Eyes: Pupils equal, round and reactive to light. ENT: Pharynx normal. Neck: Normal inspection. Neck supple. No lymph nodes noted. No crepitus CVS: Normal heart rate and rhythm. Pulses normal. Normal S1 and S2 Respiratory: No respiratory distress. Breath sounds normal. No Wheezing. No rales Abdomen: Soft and nontender. No rigidity. No distention. Skin: Skin warm and dry. Abrasion to the forehead on the left side Extremities: No lower extremity edema. No Lacerations. No Rash Neuro: Oriented X 3. No motor deficit. No sensory deficit. Moving all extremities. No slurred speech. CN 2 through 12 grossly intact Psych: calm, cooperative, normal affect Course Course Course Narrative: Other than the abrasion, patient has no other symptoms. Patient is ambulatory. Head CT and neck CT showed no acute abnormalities Patient has abrasion was clean. Patient ready for discharge. Patient is feeling well. Discharge Plan Discharge Clinical Impression: Head injury Patient Disposition: Home, Self-Care Instructions: Head Injury (ED) Additional Instructions: Please follow-up with your primary care physician tomorrow. If you have any worsening or new symptoms, please return to the emergency room or call 911 Prescriptions: No Action glipizide 5 mg tablet extended release 24hr 1 tab PO DAILY escitalopram oxalate 20 mg tablet 1 tab PO DAILY metformin 500 mg tablet 1,000 mg PO DAILY@1700 multivitamin-iron (hematinic) Tablet 1 tab PO DAILY cholecalciferol (vitamin D3) [Vitamin D3] 25 mcg (1,000 unit) Capsule 25 mcg PO DAILY lisinopril 2.5 mg tablet 1 tab PO DAILY doxycycline hyclate 100 mg tablet 100 mg PO DAILY Qty: 14 0RF hydrocortisone 1 % cream 1 appl topical BID PRN (Reason: skin irritation) Qty: 28.35 0RF bupropion HCl 300 mg tablet extended release 24 hr 300 mg PO DAILY aripiprazole 20 mg tablet 20 mg PO BEDTIME lorazepam 0.5 mg tablet 0.5 mg PO BID metoprolol tartrate 25 mg tablet 25 mg PO BID atorvastatin 40 mg tablet 40 mg PO DAILY metformin 500 mg tablet 500 mg PO DAILY Xarelto 20 mg tablet 20 mg PO BEDTIME
[2022-06-18 23:14] VITALS: BP 121/41; PULSE 61; RESP 17; TEMP 36.6; O2SAT 97
== END 2022-06-18 23:54 | disposition home or self-care (01) ==
PROVIDERS: Emergency Provider Emergency Medicine; PCP Family Medicine
DX: S09.90XA Unspecified injury of head, initial encounter (principal); R51.9 Headache, unspecified; M54.2 Cervicalgia; W01.0XXA Fall on same level from slipping, tripping and stumbling without subsequent striking against object, initial encounter; Y93.9 Activity, unspecified; Y92.9 Unspecified place or not applicable; Y99.9 Unspecified external cause status
CPT/HCPCS: 70450; 72125; 99283; 99284

== ENCOUNTER 2022-11-17 18:46 | Emergency (ER) | payer MEDICARE, SELFPAY ==
--- NOTE | ~2022-11-17 | XR_ITS ---
EXAMINATION: XR CHEST CLINICAL INFORMATION: Leg swelling and drainage from left leg. COMPARISON: None TECHNIQUE: 2 views of the chest were obtained. FINDINGS: No significant abnormality is noted involving the heart, lungs, mediastinum, bony thorax or soft tissues. XR/XR chest 2V IMPRESSION: Unremarkable chest examination.
--- NOTE | ~2022-11-17 | US_ITS ---
EXAMINATION: US VENOUS ULTRASOUND WITH DOPPLER LOWER EXTREMITY, BILATERAL CLINICAL INFORMATION: Leg swelling COMPARISON: 09/07/2021 TECHNIQUE: Ultrasound of the deep veins is performed from the hip to the calf with compression sonography and color and pulse Doppler assessment. Spectral analysis with color-flow imaging is performed. FINDINGS: RIGHT: There is normal venous compression and respiratory variation and augmented flow. The visualized common femoral vein, superficial femoral vein, profunda femoral vein, popliteal vein, and the trifurcation region shows no evidence of deep venous thrombosis. There is no significant popliteal fossa cyst. LEFT: There is normal venous compression and respiratory variation and augmented flow. The visualized common femoral vein, superficial femoral vein, profunda femoral vein, popliteal vein, and the trifurcation region shows no evidence of deep venous thrombosis. There is no significant popliteal fossa cyst. If the patient's symptoms persist, followup ultrasound in 5 days 7 days might be of value to exclude proximal propagation from a non-visualized calf vein. US/US venous duplex LE BI IMPRESSION: No DVT demonstrated in the bilateral lower extremities.
[2022-11-17 19:28] VITALS: BP 130/68; PULSE 76; RESP 16; TEMP 36.8; O2SAT 95; BMI 32.1
--- NOTE | 2022-11-17 19:33 | ED_ITS ---
HPI - Extremity Problem General Chief complaint: Extremity Injury, Lower <MER Danielson - Last Filed: 11/17/22 19:36> Stated complaint: leg leg weeping <MER Danielson - Last Filed: 11/17/22 19:36> Time Seen by Provider: 11/17/22 22:56 <MER Danielson - Last Filed: 11/17/22 19:36> Source: patient and family <Amelia Hendrickson MD - Last Filed: 11/17/22 23:38> Mode of arrival: wheelchair <Amelia Hendrickson MD - Last Filed: 11/17/22 23:38> Limitations: no limitations <Amelia Hendrickson MD - Last Filed: 11/17/22 23:38> History of Present Illness HPI Narrative: Patient comes to the emergency room complaining of left lower extremity swelling and weeping. Patient denies any pain, no erythema. Patient states that he has noticed that his left leg is a bit more swollen. Patient takes Eliquis, and is compliant with his medication. <Amelia Hendrickson MD - Last Filed: 11/17/22 23:38> Related Data Home medications: Home Medications Medication Instructions Recorded Confirmed aripiprazole 20 mg tablet 20 mg PO BEDTIME 07/11/21 09/02/21 atorvastatin 40 mg tablet 40 mg PO DAILY 07/11/21 09/02/21 bupropion HCl 300 mg 24 hr tablet, 300 mg PO DAILY 07/11/21 09/02/21 extended release lorazepam 0.5 mg tablet 0.5 mg PO BID 07/11/21 09/02/21 metformin 500 mg tablet 500 mg PO DAILY 07/11/21 09/02/21 metoprolol tartrate 25 mg tablet 25 mg PO BID 07/11/21 09/02/21 rivaroxaban 20 mg tablet (Xarelto) 20 mg PO BEDTIME 07/11/21 09/02/21 cholecalciferol (vitamin D3) 25 25 mcg PO DAILY 09/02/21 09/02/21 mcg (1,000 unit) capsule (Vitamin D3) escitalopram oxalate 20 mg tablet 1 tab PO DAILY 09/02/21 09/02/21 glipizide 5 mg tablet, extended 1 tab PO DAILY 09/02/21 09/02/21 release 24 hr lisinopril 2.5 mg tablet 1 tab PO DAILY 09/02/21 09/02/21 metformin 500 mg tablet 1,000 mg PO DAILY@1700 09/02/21 09/02/21 multivitamin-iron (hematinic) 1 tab PO DAILY 09/02/21 09/02/21 Previous Rx's Medication Instructions Recorded doxycycline hyclate 100 mg tablet 100 mg PO DAILY #14 tabs 09/08/21 hydrocortisone 1 % topical cream 1 appl topical BID PRN skin 09/08/21 irritation #28.35 grams furosemide 40 mg tablet 40 mg PO DAILY #5 tabs 11/17/22 <MER Danielson - Last Filed: 11/17/22 19:36> Allergies/Adverse reactions: Allergies Allergy/AdvReac Type Severity Reaction Status Date / Time No Known Allergies Allergy Verified 09/02/21 13:15 <MER Danielson - Last Filed: 11/17/22 19:36> Review of Systems Review of Systems: Constitutional : No Weight loss, No Fever, No Chills, No Night Sweats, No Fatigue, No Malaise ENT/Mouth : No Hearing loss, No Ear Pain, No Nasal Congestion, No Sinus Pain, No Hoarseness, No sore throat, No Rhinorrhea, No Swallowing Difficulty Eyes: No Eye Pain, No Swelling, No Redness, No Foreign Body, No Discharge, No Vision Changes Cardiovascular : No Chest Pain, No SOB, No Dyspnea on Exertion, No Orthopnea, No Edema, No Palpitations Respiratory : No Cough, No Sputum, No Wheezing, No Smoke Exposure, No Dyspnea Gastrointestinal : No Nausea, No Vomiting, No Diarrhea, No Constipation, No abdominal Pain, No Hematochezia, No Melena Genitourinary : no irregular bleeding, No Dysuria, No Urinary Frequency, No Hematuria, No Urinary Incontinence, No Urgency, No Flank Pain, No Urinary Flow Changes, No Hesitancy Musculoskeletal : No joint pain, No Myalgias, No Joint Swelling Skin : Complaining of weeping lower extremity on the left Neuro : No Weakness, No Numbness, No Paresthesias, No Loss of Consciousness, No Dizziness, No Headache Psych : No Anxiety/Panic, No Depression, No SI/HI/AH/VH, No Social Issues, Heme/Lymph: No Bruising, No Bleeding,No Lymphadenopathy Endocrine : No Polyuria, No Polydipsia, No Temperature Intolerance <Amelia Hendrickson, MD - Last Filed: 11/17/22 23:38> [facility] Past Medical History Medical History: Medical History Acidosis, lactic Afib Diabetes type 2, controlled HLD (hyperlipidemia) HTN (hypertension) Lower respiratory infection (e.g., bronchitis, pneumonia, pneumonitis, pulmonitis) Schizophrenia <MER Danielson - Last Filed: 11/17/22 19:36> Surgical History: Surgical History History of total right knee replacement (TKR) <MER Danielson - Last Filed: 11/17/22 19:36> Social History Social History: Social History Household Members: Spouse Housing: House Unable to assess alcohol history related to: Unknown Alcohol intake: former Patient Tobacco Use Status: Tobacco use Unknown e-Cigarette/Vaping Use: Never Used Advance Directives: No Advance Directives Information Provided: Yes service: No Current occupational status: retired <MER Danielson - Last Filed: 11/17/22 19:36> Physical Exam Vital Signs: Vital Signs: Last Vital Signs Temp 98.2 F 11/17/22 19:28 Pulse 76 11/17/22 19:28 Resp 16 11/17/22 19:28 BP 130/68 11/17/22 19:28 Pulse Ox 95 11/17/22 19:28 O2 Del Method 11/17/22 19:28 BMI result Body Mass Index 32.1 <MER Danielson - Last Filed: 11/17/22 19:36> Vital Signs: Last Vital Signs Temp 98.2 F 11/17/22 19:28 Pulse 76 11/17/22 19:28 Resp 16 11/17/22 19:28 BP 130/68 11/17/22 19:28 Pulse Ox 95 11/17/22 19:28 O2 Del Method 11/17/22 19:28 BMI result Body Mass Index 32.1 <Amelia Hendrickson MD - Last Filed: 11/17/22 23:38> Const: Other: Appearance: Alert. Oriented X3. No acute distress. Eyes: Pupils equal, round and reactive to light. ENT: Pharynx normal. Neck: Normal inspection. Neck supple. No lymph nodes noted. No crepitus CVS: Normal heart rate and rhythm. Pulses normal. Normal S1 and S2 Respiratory: No respiratory distress. Breath sounds normal. No Wheezing. No rales Abdomen: Soft and nontender. No rigidity. No distention. Skin: Skin warm and dry. Normal skin color. Normal skin turgor. Extremities: +1 pitting edema on the right lower extremity, chronic venous stasis, +2 pitting edema in the left lower extremity. Mild weeping from the skin, no obvious ulcers, no erythema, no cellulitis Neuro: Oriented X 3. No motor deficit. No sensory deficit. Moving all extremities. No slurred speech. CN 2 through 12 grossly intact Psych: calm, cooperative, normal affect <Amelia Hendrickson MD - Last Filed: 11/17/22 23:38> Course Course Course Narrative: RME-19:33PM - 72yoM with a PMHx of AFib, diabetes, hyperlipidemia, hypertension, central sleep apnea who wears a CPAP at night and schizophrenia who had a fall back in July and had a brain bleed was seen at [facility] and went to short-term rehab currently on Eliquis taking as prescribed who is presenting to the ER with at bedside with complaints of a few days of worsening bilateral leg swelling with clear/yellow colored thin drainage. He denies any fevers, chest pain or shortness of breath, dyspnea on exertion, recent falls or trauma or any other symptoms complaints or concerns at this time. Plan: Labs, EKG, chest x-ray and venous duplex ultrasound of bilateral lower extremity ordered at this time. Patient will be sent back to the waiting room to be evaluated in the ED. <MER Danielson - Last Filed: 11/17/22 19:36> Medical Decision Making Medical Decision Making MDM Narrative: Patient's white blood cell count within normal limits, BNP at baseline, chest x-ray shows no acute abnormalities. -patient's lower extremity likely secondary to chronic venous insufficiency. -patient will be started on Lasix to help with lower extremity edema. At this time, we will hold his 1st dose until tomorrow, otherwise patient will be urinating all night. Patient has no respiratory distress, no need to start diuretics at this time. Prescription was sent to the patient's pharmacy. Patient's legs were wrapped with gauze is to help absorb the edema that is weeping and the patient's leg was wrapped with Wilmer wraps <Amelia Hendrickson MD - Last Filed: 11/17/22 23:38> Lab Data Result Diagrams: 11/17/22 20:17 11/17/22 20:17 <MER Danielson - Last Filed: 11/17/22 19:36> Labs: Lab Results 11/17/22 11/17/22 11/17/22 Range/Units 20:17 20:17 20:17 WBC 6.1 (4.8-10.8) X10*3/uL RBC 3.65 L (4.60-5.80) X10*6/uL Hgb 10.6 L (14.0-18.0) g/dl Hct 32.0 L (42.0-52.0) % MCV 87.7 (80.0-98.0) fL MCH 29.0 (27.0-33.0) pg MCHC 33.1 (31.0-36.0) g/dl RDW 14.3 (11.0-16.0) % Plt Count 140 L (160-400) X10*3/uL MPV 9.2 L (9.4-12.4) fL Immature Gran % (Auto) 0.5 H (0.0-0.4) % Neut % (Auto) 61.1 (45-73) % Lymph % (Auto) 25.9 (20-40) % [place] % (Auto) 9.3 (2-11) % Eos % (Auto) 2.9 (0-4) % Baso % (Auto) 0.3 (0-2) % Lymph # (Auto) 1.6 (1.2-4.9) X10*3/uL [place] # (Auto) 0.6 (0.1-1.2) X10*3/uL Eos # (Auto) 0.2 (0.0-0.4) X10*3/uL Baso # (Auto) 0.0 (0.0-0.2) X10*3/uL Abs Immat Gran (auto) 0.03 (0.00-0.03) X10*3/uL Absolute Neuts (auto) 3.7 (2.0-8.3) x10*3/uL Absolute Nucleated RBC 0.000 (0.0-0.012) X10*3/uL Nucleated RBC % (auto) 0.0 (0.0-0.2) /100WBC PT 24.4 H (10.0-13.1) SEC INR 2.1 H (0.9-1.1) Sodium 139 (135-145) mmol/L Potassium 4.4 (3.3-5.1) mmol/L Chloride 109 H (96-108) mmol/L Carbon Dioxide 23 (22-29) mmol/L Anion Gap 11 L (12-20) BUN 28 H (9-16) mg/dL Creatinine 1.21 (0.5-1.4) mg/dL Estim Creat Clear Calc 72.8 Estimated GFR 59 Random Glucose 159 H (60-115) mg/dL Calcium 9.3 (8.4-10.2) mg/dL Magnesium 1.9 (1.6-2.6) mg/dL Total Bilirubin 1.0 (0.0-1.0) mg/dL AST 18 (5-37) U/L ALT 26 (0-40) U/L Alkaline Phosphatase 66 (39-117) U/L B-Natriuretic Peptide (<100) pg/mL Total Protein 6.4 L (6.5-8.0) g/dL Albumin 4.1 (3.5-5.0) g/dL 11/17/22 Range/Units 20:17 WBC (4.8-10.8) X10*3/uL RBC (4.60-5.80) X10*6/uL Hgb (14.0-18.0) g/dl Hct (42.0-52.0) % MCV (80.0-98.0) fL MCH (27.0-33.0) pg MCHC (31.0-36.0) g/dl RDW (11.0-16.0) % Plt Count (160-400) X10*3/uL MPV (9.4-12.4) fL Immature Gran % (Auto) (0.0-0.4) % Neut % (Auto) (45-73) % Lymph % (Auto) (20-40) % [place] % (Auto) (2-11) % Eos % (Auto) (0-4) % Baso % (Auto) (0-2) % Lymph # (Auto) (1.2-4.9) X10*3/uL [place] # (Auto) (0.1-1.2) X10*3/uL Eos # (Auto) (0.0-0.4) X10*3/uL Baso # (Auto) (0.0-0.2) X10*3/uL Abs Immat Gran (auto) (0.00-0.03) X10*3/uL Absolute Neuts (auto) (2.0-8.3) x10*3/uL Absolute Nucleated RBC (0.0-0.012) X10*3/uL Nucleated RBC % (auto) (0.0-0.2) /100WBC PT (10.0-13.1) SEC INR (0.9-1.1) Sodium (135-145) mmol/L Potassium (3.3-5.1) mmol/L Chloride (96-108) mmol/L Carbon Dioxide (22-29) mmol/L Anion Gap (12-20) BUN (9-16) mg/dL Creatinine (0.5-1.4) mg/dL Estim Creat Clear Calc Estimated GFR Random Glucose (60-115) mg/dL Calcium (8.4-10.2) mg/dL Magnesium (1.6-2.6) mg/dL Total Bilirubin (0.0-1.0) mg/dL AST (5-37) U/L ALT (0-40) U/L Alkaline Phosphatase (39-117) U/L B-Natriuretic Peptide 211 H (<100) pg/mL Total Protein (6.5-8.0) g/dL Albumin (3.5-5.0) g/dL <MER Danielson - Last Filed: 11/17/22 19:36> Lab Results 11/17/22 11/17/22 11/17/22 Range/Units 20:17 20:17 20:17 WBC 6.1 (4.8-10.8) X10*3/uL RBC 3.65 L (4.60-5.80) X10*6/uL Hgb 10.6 L (14.0-18.0) g/dl Hct 32.0 L (42.0-52.0) % MCV 87.7 (80.0-98.0) fL MCH 29.0 (27.0-33.0) pg MCHC 33.1 (31.0-36.0) g/dl RDW 14.3 (11.0-16.0) % Plt Count 140 L (160-400) X10*3/uL MPV 9.2 L (9.4-12.4) fL Immature Gran % (Auto) 0.5 H (0.0-0.4) % Neut % (Auto) 61.1 (45-73) % Lymph % (Auto) 25.9 (20-40) % [place] % (Auto) 9.3 (2-11) % Eos % (Auto) 2.9 (0-4) % Baso % (Auto) 0.3 (0-2) % Lymph # (Auto) 1.6 (1.2-4.9) X10*3/uL [place] # (Auto) 0.6 (0.1-1.2) X10*3/uL Eos # (Auto) 0.2 (0.0-0.4) X10*3/uL Baso # (Auto) 0.0 (0.0-0.2) X10*3/uL Abs Immat Gran (auto) 0.03 (0.00-0.03) X10*3/uL Absolute Neuts (auto) 3.7 (2.0-8.3) x10*3/uL Absolute Nucleated RBC 0.000 (0.0-0.012) X10*3/uL Nucleated RBC % (auto) 0.0 (0.0-0.2) /100WBC PT 24.4 H (10.0-13.1) SEC INR 2.1 H (0.9-1.1) Sodium 139 (135-145) mmol/L Potassium 4.4 (3.3-5.1) mmol/L Chloride 109 H (96-108) mmol/L Carbon Dioxide 23 (22-29) mmol/L Anion Gap 11 L (12-20) BUN 28 H (9-16) mg/dL Creatinine 1.21 (0.5-1.4) mg/dL Estim Creat Clear Calc 72.8 Estimated GFR 59 Random Glucose 159 H (60-115) mg/dL Calcium 9.3 (8.4-10.2) mg/dL Magnesium 1.9 (1.6-2.6) mg/dL Total Bilirubin 1.0 (0.0-1.0) mg/dL AST 18 (5-37) U/L ALT 26 (0-40) U/L Alkaline Phosphatase 66 (39-117) U/L B-Natriuretic Peptide (<100) pg/mL Total Protein 6.4 L (6.5-8.0) g/dL Albumin 4.1 (3.5-5.0) g/dL 11/17/22 Range/Units 20:17 WBC (4.8-10.8) X10*3/uL RBC (4.60-5.80) X10*6/uL Hgb (14.0-18.0) g/dl Hct (42.0-52.0) % MCV (80.0-98.0) fL MCH (27.0-33.0) pg MCHC (31.0-36.0) g/dl RDW (11.0-16.0) % Plt Count (160-400) X10*3/uL MPV (9.4-12.4) fL Immature Gran % (Auto) (0.0-0.4) % Neut % (Auto) (45-73) % Lymph % (Auto) (20-40) % [place] % (Auto) (2-11) % Eos % (Auto) (0-4) % Baso % (Auto) (0-2) % Lymph # (Auto) (1.2-4.9) X10*3/uL [place] # (Auto) (0.1-1.2) X10*3/uL Eos # (Auto) (0.0-0.4) X10*3/uL Baso # (Auto) (0.0-0.2) X10*3/uL Abs Immat Gran (auto) (0.00-0.03) X10*3/uL Absolute Neuts (auto) (2.0-8.3) x10*3/uL Absolute Nucleated RBC (0.0-0.012) X10*3/uL Nucleated RBC % (auto) (0.0-0.2) /100WBC PT (10.0-13.1) SEC INR (0.9-1.1) Sodium (135-145) mmol/L Potassium (3.3-5.1) mmol/L Chloride (96-108) mmol/L Carbon Dioxide (22-29) mmol/L Anion Gap (12-20) BUN (9-16) mg/dL Creatinine (0.5-1.4) mg/dL Estim Creat Clear Calc Estimated GFR Random Glucose (60-115) mg/dL Calcium (8.4-10.2) mg/dL Magnesium (1.6-2.6) mg/dL Total Bilirubin (0.0-1.0) mg/dL AST (5-37) U/L ALT (0-40) U/L Alkaline Phosphatase (39-117) U/L B-Natriuretic Peptide 211 H (<100) pg/mL Total Protein (6.5-8.0) g/dL Albumin (3.5-5.0) g/dL <Amelia Hendrickson MD - Last Filed: 11/17/22 23:38> Discharge Plan Discharge Clinical Impression: Edema of left lower extremity <MER Danielson - Last Filed: 11/17/22 19:36> Patient Disposition: Home, Self-Care <MER Danielson - Last Filed: 11/17/22 19:36> Instructions: Leg Edema (ED) <MER Danielson - Last Filed: 11/17/22 19:36> Additional Instructions: Please follow-up with your primary care physician tomorrow. If you have any worsening or new symptoms, please return to the emergency room or call 911 <MER Danielson - Last Filed: 11/17/22 19:36> Prescriptions: New furosemide 40 mg tablet 40 mg PO DAILY Qty: 5 0RF No Action glipizide 5 mg tablet extended release 24hr 1 tab PO DAILY escitalopram oxalate 20 mg tablet 1 tab PO DAILY metformin 500 mg tablet 1,000 mg PO DAILY@1700 multivitamin-iron (hematinic) Tablet 1 tab PO DAILY cholecalciferol (vitamin D3) [Vitamin D3] 25 mcg (1,000 unit) Capsule 25 mcg PO DAILY lisinopril 2.5 mg tablet 1 tab PO DAILY doxycycline hyclate 100 mg tablet 100 mg PO DAILY Qty: 14 0RF hydrocortisone 1 % cream 1 appl topical BID PRN (Reason: skin irritation) Qty: 28.35 0RF bupropion HCl 300 mg tablet extended release 24 hr 300 mg PO DAILY aripiprazole 20 mg tablet 20 mg PO BEDTIME lorazepam 0.5 mg tablet 0.5 mg PO BID metoprolol tartrate 25 mg tablet 25 mg PO BID atorvastatin 40 mg tablet 40 mg PO DAILY metformin 500 mg tablet 500 mg PO DAILY Xarelto 20 mg tablet 20 mg PO BEDTIME <MER Danielson - Last Filed: 11/17/22 19:36>
--- NOTE | 2022-11-17 19:35 | ECG_ITS ---
Test Reason : legs Blood Pressure : / mmHG Vent. Rate : 071 BPM Atrial Rate : 071 BPM P-R Int : 174 ms QRS Dur : 122 ms QT Int : 438 ms P-R-T Axes : 076 -15 029 degrees QTc Int : 475 ms Normal sinus rhythm Minimal voltage criteria for LVH, may be normal variant ( Josue product ) Possible Anterior infarct (cited on or before 24-DEC-2020) Abnormal ECG When compared with ECG of 27-JAN-2021 16:12, Sinus rhythm has replaced Atrial flutter Referred By: Jenny Alegria Electronically Signed By:Gerald Santiago
[2022-11-17 20:23] LABS: MANUAL DIFF FLAG NO
[2022-11-17 20:24] LABS: Basophils Percent Auto 0.3 % (0-2); Eosinophils Absolute Auto 0.2 X10*3/uL (0.0-0.4); Eosinophils Percent Auto 2.9 % (0-4); Hemoglobin 10.6 g/dl (14.0-18.0); Imm Gran Abs Auto 0.03 X10*3/uL (0.00-0.03); Imm Gran Pct Auto 0.5 % (0.0-0.4); Lymphocytes Absolute Auto 1.6 X10*3/uL (1.2-4.9); Lymphocytes Percent Auto 25.9 % (20-40); Mean Corpuscular HGB Conc 33.1 g/dl (31.0-36.0); Mean Corpuscular Volume 87.7 fL (80.0-98.0); Mean Platelet Volume 9.2 fL (9.4-12.4); Monocytes Absolute Auto 0.6 X10*3/uL (0.1-1.2); Monocytes Percent Auto 9.3 % (2-11); Neutrophils Absolute Auto 3.7 x10*3/uL (2.0-8.3); Neutrophils Percent Auto 61.1 % (45-73); Platelet Count 140 X10*3/uL (160-400); Red Blood Count 3.65 X10*6/uL (4.60-5.80); Red Cell Distribution Width 14.3 % (11.0-16.0); White Blood Count 6.1 X10*3/uL (4.8-10.8)
[2022-11-17 20:30] LABS: INTERNATIONAL NORM RATIO 2.1 (0.9-1.1); Prothrombin Time 24.4 SEC (10.0-13.1)
[2022-11-17 20:44] LABS: Alanine Aminotransferase 26 U/L (0-40); Albumin Level 4.1 g/dL (3.5-5.0); Alkaline Phosphatase 66 U/L (39-117); Anion Gap 11 (12-20); Aspartate Amino Transferase 18 U/L (5-37); Blood Urea Nitrogen 28 mg/dL (9-16); Calcium 9.3 mg/dL (8.4-10.2); Carbon Dioxide 23 mmol/L (22-29); Chloride 109 mmol/L (96-108); Creatinine Clr Calc Pharmacy 72.8; Estimated Glomerular Filt Rate 59; Glucose Random 159 mg/dL (60-115); Magnesium 1.9 mg/dL (1.6-2.6); Potassium 4.4 mmol/L (3.3-5.1); Sodium 139 mmol/L (135-145); Total Protein 6.4 g/dL (6.5-8.0)
[2022-11-17 20:48] LABS: B Type Natriuretic Peptide 211 pg/mL (<100)
== END 2022-11-18 00:06 | disposition home or self-care (01) ==
PROVIDERS: Physician Assistant Medical; Emergency Provider Emergency Medicine; PCP Family Medicine
DX: R60.0 Localized edema (principal); M79.662 Pain in left lower leg; I48.91 Unspecified atrial fibrillation; R06.02 Shortness of breath; Z79.01 Long term (current) use of anticoagulants; Z79.899 Other long term (current) drug therapy
CPT/HCPCS: 36415; 71046; 80053; 83735; 83880; 85025; 85610; 93005; 93970; 99282; 99284

== ENCOUNTER 2023-01-12 18:54 | Emergency (ER) | payer MEDICARE, MEDICAID, SELFPAY ==
--- NOTE | ~2023-01-12 | CT_ITS ---
EXAMINATION: CT ABDOMEN AND PELVIS WITH CONTRAST CLINICAL INFORMATION: Abdominal pain, question pancreatitis COMPARISON: None available. TECHNIQUE: Multidetector volumetric images were obtained from the superior aspect of the liver through the pubic symphysis following administration 85 mL of Omnipaque 350 intravenous contrast. Sagittal and coronal reformatted images were obtained on the technologist's workstation. Oral contrast: No This CT examination was performed using dose optimization techniques as appropriate, variously including the following: *Automated exposure control *Adjustment of mA and/or kV according to patient size (this includes techniques or standardized protocols for targeted exams where dose is matched to indication/reason for exam; i.e. extremities or head) *Use of iterative reconstruction technique DLP: 653 mGy-cm FINDINGS: LUNG BASES: The visualized lung bases are unremarkable. LIVER, GALLBLADDER, AND BILIARY TREE: The liver demonstrates mildly heterogeneous attenuation. No focal hepatic lesion or biliary ductal dilatation is present. Gallbladder appears somewhat contracted. PANCREAS: Unremarkable. SPLEEN: Unremarkable. ADRENAL GLANDS: Unremarkable. KIDNEYS AND URETERS: Bilateral nephrograms are symmetric. No hydronephrosis or obstructing calculus identified. Nonspecific symmetric bilateral perinephric stranding. BLADDER: Mild diffuse mural prominence which may be related to underdistention. GASTROINTESTINAL TRACT: No evidence of bowel obstruction or significant wall thickening. The appendix is unremarkable. No free fluid or free air is seen. ABDOMINAL WALL: Tiny fat-containing left inguinal hernia. LYMPH NODES: Normal. VASCULAR: Relatively mild scattered atherosclerotic calcifications. 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 PELVIC VISCERA: Unremarkable. OSSEOUS STRUCTURES: Degenerative changes are noted in the spine. CT/CT abdomen pelvis w IV con IMPRESSION: 1. No acute findings identified in the abdomen/pelvis. No findings to suggest pancreatitis. 2. Calcified splenic artery aneurysm measuring approximately 1.8 cm.
[2023-01-12 18:56] VITALS: BP 138/85; PULSE 59; RESP 18; TEMP 36.2; O2SAT 97; BMI 26.3
--- NOTE | 2023-01-12 18:57 | ED_ITS ---
HPI - General Adult General Chief complaint: Nausea/Vomiting/Diarrhea <Fredy Farrell - Last Filed: 01/12/23 19:01> Stated complaint: nausea and vomiting <Fredy Farrell - Last Filed: 01/12/23 19:01> Time Seen by Provider: 01/12/23 21:57 <Fredy Farrell - Last Filed: 01/12/23 19:01> Source: patient and family <Mata Jane MD - Last Filed: 01/13/23 01:35> Mode of arrival: ambulatory <Mata Jane MD - Last Filed: 01/13/23 01:35> Limitations: no limitations <Mata Jane MD - Last Filed: 01/13/23 01:35> History of Present Illness HPI narrative: Patient with history of chronic nausea abdominal discomfort followed by GI came here for increased nausea and retching feeling which is going on for a while unable to eat or drink much all day today which is not usual for him. No fever no chills <Mata Jane MD - Last Filed: 01/13/23 01:35> Related Data Home medications: Home Medications Medication Instructions Recorded Confirmed aripiprazole 20 mg tablet 20 mg PO BEDTIME 07/11/21 09/02/21 atorvastatin 40 mg tablet 40 mg PO DAILY 07/11/21 09/02/21 bupropion HCl 300 mg 24 hr tablet, 300 mg PO DAILY 07/11/21 09/02/21 extended release lorazepam 0.5 mg tablet 0.5 mg PO BID 07/11/21 09/02/21 metformin 500 mg tablet 500 mg PO DAILY 07/11/21 09/02/21 metoprolol tartrate 25 mg tablet 25 mg PO BID 07/11/21 09/02/21 rivaroxaban 20 mg tablet (Xarelto) 20 mg PO BEDTIME 07/11/21 09/02/21 cholecalciferol (vitamin D3) 25 25 mcg PO DAILY 09/02/21 09/02/21 mcg (1,000 unit) capsule (Vitamin D3) escitalopram oxalate 20 mg tablet 1 tab PO DAILY 09/02/21 09/02/21 glipizide 5 mg tablet, extended 1 tab PO DAILY 09/02/21 09/02/21 release 24 hr lisinopril 2.5 mg tablet 1 tab PO DAILY 09/02/21 09/02/21 metformin 500 mg tablet 1,000 mg PO DAILY@1700 09/02/21 09/02/21 multivitamin-iron (hematinic) 1 tab PO DAILY 09/02/21 09/02/21 Previous Rx's Medication Instructions Recorded doxycycline hyclate 100 mg tablet 100 mg PO DAILY #14 tabs 09/08/21 hydrocortisone 1 % topical cream 1 appl topical BID PRN skin 09/08/21 irritation #28.35 grams furosemide 40 mg tablet 40 mg PO DAILY #5 tabs 11/17/22 ondansetron 4 mg disintegrating 4 mg PO Q6-8H PRN nausea and 01/13/23 tablet vomiting #20 tabs pantoprazole 40 mg tablet,delayed 40 mg PO DAILY #30 tabs 01/13/23 release (Protonix) <Fredy Farrell - Last Filed: 01/12/23 19:01> Allergies/adverse reactions: Allergies Allergy/AdvReac Type Severity Reaction Status Date / Time No Known Allergies Allergy Verified 09/02/21 13:15 <Fredy Farrell - Last Filed: 01/12/23 19:01> Review of Systems Review of Systems: Yes all other systems are reviewed and are negative <Mata Jane MD - Last Filed: 01/13/23 01:35> [facility] Past Medical History Medical History: Medical History Acidosis, lactic Afib Diabetes type 2, controlled HLD (hyperlipidemia) HTN (hypertension) Lower respiratory infection (e.g., bronchitis, pneumonia, pneumonitis, pulm onitis) Schizophrenia <Fredy Farrell - Last Filed: 01/12/23 19:01> Surgical History: Surgical History History of total right knee replacement (TKR) <Fredy Farrell - Last Filed: 01/12/23 19:01> Social History Social History: Social History Household Members: Spouse Housing: House Unable to assess alcohol history related to: Unknown Alcohol intake: unknown Patient Tobacco Use Status: Tobacco use Unknown e-Cigarette/Vaping Use: Never Used Use of substances other than those prescribed or required for medical reasons: Unknown Advance Directives: No Advance Directives Information Provided: No service: No Current occupational status: retired <Fredy Farrell - Last Filed: 01/12/23 19:01> Physical Exam ED Vital Signs: Vital Signs - 24 hr 01/12/23 18:56 01/12/23 22:18 01/12/23 23:32 Temperature 97.2 F 97.6 F 97.6 F Pulse Rate 59 61 67 Respiratory Rate 18 12 20 Blood Pressure 138/85 137/73 154/64 H Pulse Oximetry 97 97 97 Oxygen Delivery Method Room Air Room Air BMI result Body Mass Index 26.3 <Fredy Farrell - Last Filed: 01/12/23 19:01> Vital Signs - 24 hr 01/12/23 18:56 01/12/23 22:18 01/12/23 23:32 Temperature 97.2 F 97.6 F 97.6 F Pulse Rate 59 61 67 Respiratory Rate 18 12 20 Blood Pressure 138/85 137/73 154/64 H Pulse Oximetry 97 97 97 Oxygen Delivery Method Room Air Room Air BMI result Body Mass Index 26.3 <Mata Jane MD - Last Filed: 01/13/23 01:35> Appearance: Alert. Oriented X3. No acute distress. Eyes: No pallor/ icterus ENT: Pharynx normal. Oral Mucosa moist Neck: Normal inspection. Neck supple. CVS: Normal heart rate and rhythm. Pulses normal. Respiratory: No respiratory distress. Equal air entry bilateral, no wheezing/rales/rhonchi Abdomen: Soft, diffuse upper abdominal tenderness Bowel sounds are present, no mass palpable, no CVA tenderness Skin: Skin warm and dry. Normal skin color. Normal skin turgor. Extremities: No lower extremity edema. No calf tenderness Neuro: Oriented X 3. No motor deficit. <Mata Jane MD - Last Filed: 01/13/23 01:35> Course Course Course Narrative: 72-year-old male presents for evaluation of nausea and vomiting. 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 Reports the symptoms have been worse for the last 17 hours. Denies any fevers, chills, diarrhea <Fredy Farrell - Last Filed: 01/12/23 19:01> Medications Administered Discontinued Medications Generic Name Dose Route Start Last Admin Trade Name Freq PRN Reason Stop Dose Admin Sodium Chloride 1,000 mls @ 999 mls/hr 01/12/23 22:22 01/13/23 01:17 Ns IV 01/12/23 23:22 Infused .Q1H1M ONE Infusion Iohexol 85 ml 01/12/23 23:18 01/12/23 23:25 Iohexol 350 Mg/Ml 100 Ml Infus..Btl IV 01/12/23 23:19 85 ml ONCE ONE Administration Ondansetron HCl 4 mg 01/13/23 01:13 01/13/23 01:17 Ondansetron Hcl 4 Mg/2 Ml Vial IVPUSH 01/13/23 01:14 4 mg ONCE ONE Administration <Fredy Farrell - Last Filed: 01/12/23 19:01> Medications Administered Discontinued Medications Generic Name Dose Route Start Last Admin Trade Name Freq PRN Reason Stop Dose Admin Sodium Chloride 1,000 mls @ 999 mls/hr 01/12/23 22:22 01/13/23 01:17 Ns IV 01/12/23 23:22 Infused .Q1H1M ONE Infusion Iohexol 85 ml 01/12/23 23:18 01/12/23 23:25 Iohexol 350 Mg/Ml 100 Ml Infus..Btl IV 01/12/23 23:19 85 ml ONCE ONE Administration Ondansetron HCl 4 mg 01/13/23 01:13 01/13/23 01:17 Ondansetron Hcl 4 Mg/2 Ml Vial IVPUSH 01/13/23 01:14 4 mg ONCE ONE Administration <Mata Jane MD - Last Filed: 01/13/23 01:35> Medical Decision Making Medical Decision Making MDM Narrative: Patient with chronic nausea upper GI symptoms stable labs had slightly elevated lipase but CT scan was negative for any acute inflammation pancreas with discharge patient home on Zofran advised to follow with vice chancellor for possible endoscopy <Mata Jane MD - Last Filed: 01/13/23 01:35> Differential Diagnosis Pancreatitis /H pylori infection/pUD <Mata Jane MD - Last Filed: 01/13/23 01:35> Lab Data [facility] Lab Attestation statement: I reviewed the patient's lab results. <Mata Jane MD - Last Filed: 01/13/23 01:35> Result Diagrams: 01/12/23 19:20 01/12/23 19:20 <Fredy Farrell - Last Filed: 01/12/23 19:01> Labs: Lab Results 01/12/23 01/12/23 Range/Units 19:20 19:20 WBC 6.3 (4.8-10.8) X10*3/uL RBC 4.19 L (4.60-5.80) X10*6/uL Hgb 12.0 L (14.0-18.0) g/dl Hct 36.3 L (42.0-52.0) % MCV 86.6 (80.0-98.0) fL MCH 28.6 (27.0-33.0) pg MCHC 33.1 (31.0-36.0) g/dl RDW 13.2 (11.0-16.0) % Plt Count 146 L (160-400) X10*3/uL MPV 9.2 L (9.4-12.4) fL Immature Gran % (Auto) 0.3 (0.0-0.4) % Neut % (Auto) 67.4 (45-73) % Lymph % (Auto) 22.1 (20-40) % [place] % (Auto) 7.9 (2-11) % Eos % (Auto) 2.1 (0-4) % Baso % (Auto) 0.2 (0-2) % Lymph # (Auto) 1.4 (1.2-4.9) X10*3/uL [place] # (Auto) 0.5 (0.1-1.2) X10*3/uL Eos # (Auto) 0.1 (0.0-0.4) X10*3/uL Baso # (Auto) 0.0 (0.0-0.2) X10*3/uL Abs Immat Gran (auto) 0.02 (0.00-0.03) X10*3/uL Absolute Neuts (auto) 4.3 (2.0-8.3) x10*3/uL Absolute Nucleated RBC 0.000 (0.0-0.012) X10*3/uL Nucleated RBC % (auto) 0.0 (0.0-0.2) /100WBC Sodium 139 (135-145) mmol/L Potassium 4.6 (3.3-5.1) mmol/L Chloride 106 (96-108) mmol/L Carbon Dioxide 26 (22-29) mmol/L Anion Gap 12 (12-20) BUN 20 H (9-16) mg/dL Creatinine 1.20 (0.5-1.4) mg/dL Estim Creat Clear Calc 63.7 Estimated GFR 59 Random Glucose 122 H (60-115) mg/dL Calcium 10.0 D (8.4-10.2) mg/dL Magnesium 1.8 (1.6-2.6) mg/dL Total Bilirubin 0.8 (0.0-1.0) mg/dL AST 17 (5-37) U/L ALT 25 (0-40) U/L Alkaline Phosphatase 72 (39-117) U/L Total Protein 6.6 (6.5-8.0) g/dL Albumin 4.1 (3.5-5.0) g/dL Lipase 162 H (8-78) U/L <Fredy Farrell - Last Filed: 01/12/23 19:01> Lab Results 01/12/23 01/12/23 Range/Units 19:20 19:20 WBC 6.3 (4.8-10.8) X10*3/uL RBC 4.19 L (4.60-5.80) X10*6/uL Hgb 12.0 L (14.0-18.0) g/dl Hct 36.3 L (42.0-52.0) % MCV 86.6 (80.0-98.0) fL MCH 28.6 (27.0-33.0) pg MCHC 33.1 (31.0-36.0) g/dl RDW 13.2 (11.0-16.0) % Plt Count 146 L (160-400) X10*3/uL MPV 9.2 L (9.4-12.4) fL Immature Gran % (Auto) 0.3 (0.0-0.4) % Neut % (Auto) 67.4 (45-73) % Lymph % (Auto) 22.1 (20-40) % [place] % (Auto) 7.9 (2-11) % Eos % (Auto) 2.1 (0-4) % Baso % (Auto) 0.2 (0-2) % Lymph # (Auto) 1.4 (1.2-4.9) X10*3/uL [place] # (Auto) 0.5 (0.1-1.2) X10*3/uL Eos # (Auto) 0.1 (0.0-0.4) X10*3/uL Baso # (Auto) 0.0 (0.0-0.2) X10*3/uL Abs Immat Gran (auto) 0.02 (0.00-0.03) X10*3/uL Absolute Neuts (auto) 4.3 (2.0-8.3) x10*3/uL Absolute Nucleated RBC 0.000 (0.0-0.012) X10*3/uL Nucleated RBC % (auto) 0.0 (0.0-0.2) /100WBC Sodium 139 (135-145) mmol/L Potassium 4.6 (3.3-5.1) mmol/L Chloride 106 (96-108) mmol/L Carbon Dioxide 26 (22-29) mmol/L Anion Gap 12 (12-20) BUN 20 H (9-16) mg/dL Creatinine 1.20 (0.5-1.4) mg/dL Estim Creat Clear Calc 63.7 Estimated GFR 59 Random Glucose 122 H (60-115) mg/dL Calcium 10.0 D (8.4-10.2) mg/dL Magnesium 1.8 (1.6-2.6) mg/dL Total Bilirubin 0.8 (0.0-1.0) mg/dL AST 17 (5-37) U/L ALT 25 (0-40) U/L Alkaline Phosphatase 72 (39-117) U/L Total Protein 6.6 (6.5-8.0) g/dL Albumin 4.1 (3.5-5.0) g/dL Lipase 162 H (8-78) U/L <Mata Jane MD - Last Filed: 01/13/23 01:35> Discharge Plan Discharge Clinical Impression: Abdominal pain, chronic, epigastric <Fredy Farrell - Last Filed: 01/12/23 19:01> Patient Disposition: Home, Self-Care <Fredy Farrell - Last Filed: 01/12/23 19:01> Instructions: Chronic Abdominal Pain (ED) <Fredy Farrell - Last Filed: 01/12/23 19:01> Additional Instructions: Likely have chronic gastric inflammation possible H pylori infection Take medication as prescribed Follow-up with gastroenterology <Fredy Farrell - Last Filed: 01/12/23 19:01> Prescriptions: New pantoprazole [Protonix] 40 mg tablet,delayed release (DR/EC) 40 mg PO DAILY Qty: 30 0RF ondansetron 4 mg tablet,disintegrating 4 mg PO Q6-8H PRN (Reason: nausea and vomiting) Qty: 20 0RF No Action furosemide 40 mg tablet 40 mg PO DAILY Qty: 5 0RF glipizide 5 mg tablet extended release 24hr 1 tab PO DAILY escitalopram oxalate 20 mg tablet 1 tab PO DAILY metformin 500 mg tablet 1,000 mg PO DAILY@1700 multivitamin-iron (hematinic) Tablet 1 tab PO DAILY cholecalciferol (vitamin D3) [Vitamin D3] 25 mcg (1,000 unit) Capsule 25 mcg PO DAILY lisinopril 2.5 mg tablet 1 tab PO DAILY doxycycline hyclate 100 mg tablet 100 mg PO DAILY Qty: 14 0RF hydrocortisone 1 % cream 1 appl topical BID PRN (Reason: skin irritation) Qty: 28.35 0RF bupropion HCl 300 mg tablet extended release 24 hr 300 mg PO DAILY aripiprazole 20 mg tablet 20 mg PO BEDTIME lorazepam 0.5 mg tablet 0.5 mg PO BID metoprolol tartrate 25 mg tablet 25 mg PO BID atorvastatin 40 mg tablet 40 mg PO DAILY metformin 500 mg tablet 500 mg PO DAILY Xarelto 20 mg tablet 20 mg PO BEDTIME <Fredy Farrell - Last Filed: 01/12/23 19:01>
[2023-01-12 19:24] LABS: MANUAL DIFF FLAG NO
[2023-01-12 19:25] LABS: Basophils Percent Auto 0.2 % (0-2); Eosinophils Absolute Auto 0.1 X10*3/uL (0.0-0.4); Eosinophils Percent Auto 2.1 % (0-4); Hematocrit 36.3 % (42.0-52.0); Imm Gran Abs Auto 0.02 X10*3/uL (0.00-0.03); Imm Gran Pct Auto 0.3 % (0.0-0.4); Lymphocytes Absolute Auto 1.4 X10*3/uL (1.2-4.9); Lymphocytes Percent Auto 22.1 % (20-40); Mean Corpuscular HGB Conc 33.1 g/dl (31.0-36.0); Mean Corpuscular Hemoglobin 28.6 pg (27.0-33.0); Mean Corpuscular Volume 86.6 fL (80.0-98.0); Mean Platelet Volume 9.2 fL (9.4-12.4); Monocytes Absolute Auto 0.5 X10*3/uL (0.1-1.2); Monocytes Percent Auto 7.9 % (2-11); Neutrophils Absolute Auto 4.3 x10*3/uL (2.0-8.3); Neutrophils Percent Auto 67.4 % (45-73); Platelet Count 146 X10*3/uL (160-400); Red Blood Count 4.19 X10*6/uL (4.60-5.80); Red Cell Distribution Width 13.2 % (11.0-16.0); White Blood Count 6.3 X10*3/uL (4.8-10.8)
[2023-01-12 19:44] LABS: Alanine Aminotransferase 25 U/L (0-40); Albumin Level 4.1 g/dL (3.5-5.0); Alkaline Phosphatase 72 U/L (39-117); Anion Gap 12 (12-20); Aspartate Amino Transferase 17 U/L (5-37); Bilirubin Total 0.8 mg/dL (0.0-1.0); Blood Urea Nitrogen 20 mg/dL (9-16); Carbon Dioxide 26 mmol/L (22-29); Chloride 106 mmol/L (96-108); Creatinine Clr Calc Pharmacy 63.7; Estimated Glomerular Filt Rate 59; Glucose Random 122 mg/dL (60-115); Lipase 162 U/L (8-78); Magnesium 1.8 mg/dL (1.6-2.6); Potassium 4.6 mmol/L (3.3-5.1); Sodium 139 mmol/L (135-145); Total Protein 6.6 g/dL (6.5-8.0)
[2023-01-12 22:18] VITALS: BP 137/73; PULSE 61; RESP 12; TEMP 36.4; O2SAT 97
--- NOTE | 2023-01-12 22:19 | PC.NURSE ---
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
--- NOTE | 2023-01-12 22:26 | PC.NURSE ---
states pt has also had two brain bleeds in the last 6 mos pt to imaging
[2023-01-12] MEDS: 0.9 % Sodium Chloride 1,000 ML 999 ML IV (23:20)
[2023-01-12] MEDS: iohexoL 350 MG/ML 100 ML INFUS..BTL 85 ML IV (23:25)
[2023-01-12 23:32] VITALS: BP 154/64; PULSE 67; RESP 20; TEMP 36.4; O2SAT 97
[2023-01-13] MEDS: ondansetron HCL 4 MG/2 ML VIAL IVPUSH (01:17)
[2023-01-13] MEDS: Famotidine/PF 20 MG/2 ML VIAL IVPUSH (01:36)
== END 2023-01-13 01:45 | disposition home or self-care (01) ==
PROVIDERS: Physician Assistant; Emergency Provider Internal Medicine; PCP Family Medicine
DX: R10.13 Epigastric pain (principal); R11.2 Nausea with vomiting, unspecified; R10.2 Pelvic and perineal pain; Z79.899 Other long term (current) drug therapy
CPT/HCPCS: 36415; 74177; 80053; 83690; 83735; 85025; 96361; 96374; 96375; 99284; 99285; J2405; Q9967

== ENCOUNTER 2023-10-26 13:17 | Emergency (ER) | payer MEDICARE, MEDICAID, SELFPAY ==
--- NOTE | ~2023-10-26 | XR_ITS ---
EXAMINATION: XR HIP, RIGHT CLINICAL INFORMATION: Fall and right hip. COMPARISON: None available. TECHNIQUE: Two views of the right hip. AP pelvis one view FINDINGS: There are is loss of right hip joint space with subchondral cystic changes right hip. The left hip joint space is maintained normal. No acute fracture or dislocation seen involving the pelvis or the left hip joint. No fracture or dislocation right hip joint either. Bone limits in bilateral pelvis. The SI joints are symmetrical and normal. XR/XR hip RT w PEL1V IMPRESSION: Moderate moderate to advanced degenerative right hip changes without any underlying fracture or dislocation. Unremarkable left hip and rest of the pelvis.
--- NOTE | ~2023-10-26 | CT_ITS ---
CT HEAD WITHOUT IV CONTRAST CT CERVICAL SPINE WITHOUT IV CONTRAST INDICATION: Fall. COMPARISON: Head and cervical spine CT 06/18/2022. TECHNIQUE: Multidetector CT acquisitions of the head and cervical spine were obtained without IV contrast. Multiplanar reformats were acquired and utilized for image interpretation. This CT examination was performed using dose optimization techniques as appropriate, variously including the following: *Automated exposure control *Adjustment of mA and/or kV according to patient size (this includes techniques or standardized protocols for targeted exams where dose is matched to indication/reason for exam; i.e. extremities or head) *Use of iterative reconstruction technique FINDINGS: HEAD: Chronic microangiopathy. There is no intracranial hemorrhage, hydrocephalus, extra-axial surface collection, midline shift, or other herniation pattern. [place] to white matter differentiation is diffusely maintained without evidence of an evolved acute territorial infarct. The basilar cisterns are preserved. No significant soft tissue abnormality. No acute osseous abnormality. The paranasal sinuses and the mastoid air cells are well aerated. CERVICAL SPINE: There is advanced cervical spondylosis. There are no acute fractures and there are no acute subluxations. There is central canal stenosis with potential mass effect on the cervical spinal cord at the C3-C4 and C5-C6 levels that can be correlated for clinical signs of cervical myelopathy. Craniocervical junction is intact. There is no prevertebral soft tissue swelling. CT/CT head/brain wo IV con IMPRESSION: - No acute intracranial abnormality. Chronic microangiopathy. - No acute osseous abnormality within the cervical spine. Advanced cervical spondylosis. There is central canal stenosis with potential mass effect on the cervical spinal cord at the C3-C4 and C5-C6 levels that can be correlated for clinical signs of cervical myelopathy.
--- NOTE | ~2023-10-26 | CT_ITS ---
CT HEAD WITHOUT IV CONTRAST CT CERVICAL SPINE WITHOUT IV CONTRAST INDICATION: Fall. COMPARISON: Head and cervical spine CT 06/18/2022. TECHNIQUE: Multidetector CT acquisitions of the head and cervical spine were obtained without IV contrast. Multiplanar reformats were acquired and utilized for image interpretation. This CT examination was performed using dose optimization techniques as appropriate, variously including the following: *Automated exposure control *Adjustment of mA and/or kV according to patient size (this includes techniques or standardized protocols for targeted exams where dose is matched to indication/reason for exam; i.e. extremities or head) *Use of iterative reconstruction technique FINDINGS: HEAD: Chronic microangiopathy. There is no intracranial hemorrhage, hydrocephalus, extra-axial surface collection, midline shift, or other herniation pattern. [place]eda to white matter differentiation is diffusely maintained without evidence of an evolved acute territorial infarct. The basilar cisterns are preserved. No significant soft tissue abnormality. No acute osseous abnormality. The paranasal sinuses and the mastoid air cells are well aerated. CERVICAL SPINE: There is advanced cervical spondylosis. There are no acute fractures and there are no acute subluxations. There is central canal stenosis with potential mass effect on the cervical spinal cord at the C3-C4 and C5-C6 levels that can be correlated for clinical signs of cervical myelopathy. Craniocervical junction is intact. There is no prevertebral soft tissue swelling. CT/CT cervical spine wo IV con IMPRESSION: - No acute intracranial abnormality. Chronic microangiopathy. - No acute osseous abnormality within the cervical spine. Advanced cervical spondylosis. There is central canal stenosis with potential mass effect on the cervical spinal cord at the C3-C4 and C5-C6 levels that can be correlated for clinical signs of cervical myelopathy.
--- NOTE | 2023-10-26 13:26 | ED_ITS ---
HPI - Fall General Chief Complaint: Fall Stated Complaint: Fall this am-on xarelto head inj? hip pain Time Seen by Provider: 10/26/23 15:56 Source: patient and family Mode of arrival: ambulatory Limitations: no limitations History of Present Illness HPI Narrative: Patient is a 73 old male presents emergency department with his for evaluation after mechanical fall. He was walking in the kitchen today with his Rollator walker, he was attempting to utilize the microwave and took a couple of steps without the walker resulting in him losing his balance. Fell into the wall striking his head into the wall without loss consciousness however he is on Xarelto and has a history of ICH. Was assisted to standing by family, however reported right hip pain though he remains ambulatory. Denies any precipitating symptoms prior to fall. Denies headache, dizziness, lightheadedness, neck pain, chest pain, shortness of breath, numbness or tingling of the extremities, bladder bowel dysfunction Related Data Home Medications Medication Instructions Recorded Confirmed aripiprazole 20 mg tablet 20 mg PO BEDTIME 07/11/21 09/02/21 atorvastatin 40 mg tablet 40 mg PO DAILY 07/11/21 09/02/21 bupropion HCl 300 mg 24 hr tablet, 300 mg PO DAILY 07/11/21 09/02/21 extended release lorazepam 0.5 mg tablet 0.5 mg PO BID 07/11/21 09/02/21 metformin 500 mg tablet 500 mg PO DAILY 07/11/21 09/02/21 metoprolol tartrate 25 mg tablet 25 mg PO BID 07/11/21 09/02/21 rivaroxaban 20 mg tablet (Xarelto) 20 mg PO BEDTIME 07/11/21 09/02/21 cholecalciferol (vitamin D3) 25 25 mcg PO DAILY 09/02/21 09/02/21 mcg (1,000 unit) capsule (Vitamin D3) lisinopril 2.5 mg tablet 1 tab PO DAILY 09/02/21 09/02/21 multivitamin-iron (hematinic) 1 tab PO DAILY 09/02/21 09/02/21 escitalopram oxalate 10 mg tablet mg PO 01/24/23 Previous Rx's Medication Instructions Recorded ondansetron 4 mg disintegrating 4 mg PO Q6-8H PRN nausea and 01/13/23 tablet vomiting #20 tabs pantoprazole 40 mg tablet,delayed 40 mg PO DAILY #30 tabs 01/13/23 release (Protonix) cephalexin 500 mg capsule 500 mg PO Q6H 10 days #40 caps 01/24/23 Allergies Allergy/AdvReac Type Severity Reaction Status Date / Time No Known Allergies Allergy Verified 10/26/23 13:32 Review of Systems Review of Systems: Yes all other systems are reviewed and are negative [facility] Past Medical History Attestation statement: The following information was validated with the patient. Source: old records reviewed Medical History HTN (hypertension) HLD (hyperlipidemia) Acidosis, lactic Lower respiratory infection (e.g., bronchitis, pneumonia, pneumonitis, pulmonitis) Diabetes type 2, controlled Afib Schizophrenia Surgical History History of total right knee replacement (TKR) Social History Social History Household Members: Spouse Housing: House Unable to assess alcohol history related to: Unknown Alcohol intake: unknown Patient Tobacco Use Status: Never used Tobacco e-Cigarette/Vaping Use: Never Used Use of substances other than those prescribed or required for medical reasons: No Advance Directives: No Advance Directives Information Provided: No service: No Current occupational status: retired Physical Exam Vital Signs: Vital Signs: Last Vital Signs Temp 98.0 F 10/26/23 16:10 Pulse 69 10/26/23 16:10 Resp 16 10/26/23 16:10 BP 125/41 L 10/26/23 16:10 Pulse Ox 95 10/26/23 16:10 O2 Del Method Room Air 10/26/23 16:10 BMI result Body Mass Index 34.0 Appearance: Alert.?Oriented to person, place and time. No acute distress.?Normal affect. Eyes: Pupils equal, round and reactive to light.? ENT: Pharynx normal.?? Neck: Normal inspection.? Neck supple.?? CVS: Heart sounds normal. Normal heart rate and rhythm.? Pulses normal.?? Respiratory: No respiratory distress.? Lung sounds clear to auscultation bilaterally?? Abdomen: Soft and non-tender. Normoactive bowel sounds. Skin: Skin warm and dry.? Normal skin color.? Extremities: No lower extremity edema.? No calf ttp?2+ DP/PT pulse bilaterally. Full AROM to right hip and knee. Neuro: Moves all extremities spontaneously. Sensation intact bilaterally. No focal neuro deficits. Ambulates with normal steady gait and use of wheeled walker Course Course Course Narrative: RME: 73 year-old M w/ PMHx HTN, HLD, diabetes, AFib on Xarelto, Brain bleed x2, schizophrenia, presenting to the ED c/o ?head strike s/p mechanical trip & fall a few hrs [employer] while trying to reach for walker, then fell onto R hip. Ambulating at baseline with walker. Hx obtained from Head/C-spine CT & XRs ordered Full HPI, ROS and PE to be performed by primary ED provider. Medical Decision Making Medical Decision Making [facility] Narrative: Patient is a 73 old male with past medical history of hypertension, hyperlipidemia, type 2 diabetes, atrial fibrillation on Xarelto, schizophrenia who presents emergency department for evaluation after a mechanical fall with head strike and no loss of consciousness. CT head and neck without ICH, fracture, subluxation. CT of the cervical spine revealing central canal stenosis with potential mass effect on the cord at C3-C4 and C5-C6, patient and his affirms longstanding issues with gait instability and denies any recent worsening of this, patient denies neck pain or stiffness, numbness or tingling of the extremities. Upon review he has had prior CT of the cervical spine in June 2022 which does reveal multilevel DJD with facet arthropathy and neuroforaminal stenosis, therefore i spoke with radiologist who advises that the findings on CT scan today are relatively the same possibly a slight progression when compared to prior, no focal neurological deficits, do not feel that emergent MRI is required at this time, outpatient follow-up with PCP. XR of the right hip without evidence of fracture/dislocation, there is mention of moderate to advanced arthritis of the right hip. When patient was made aware of this his does report that he has been having ongoing issues with intermittent right hip and thigh pain. He has an orthopedist that he follows with, and she states that she will bring him to be evaluated for the hip. He is ambulatory with steady gait use his wheeled walker and is requesting discharge home which I feel is reasonable. Discussed worrisome signs and symptoms that would warrant re- evaluation in the emergency department. All questions answered. Stable for discharge. Differential Diagnosis Differential Diagnoses: The differential diagnosis associated with the presentation includes (As noted above) Admission/Observation Consideration of admission/observation: Escalation of care including admission/observation considered (Ambulatory with steady gait, no need for PT evaluation, no ICH, no reason for admission) Independent Interpretation I performed an independent interpretation of an: Plain X-Ray (No fracture dislocation of the right hip) and CT Scan (No ICH) Radiology Impression Discussion of test interpretation with radiology: I have reviewed the radiologist's reading. Radiologist Impression: XR/XR hip RT w PEL1V IMPRESSION: Moderate moderate to advanced degenerative right hip changes without any underlying fracture or dislocation. Unremarkable left hip and rest of the pelvis. CT/CT head/brain wo IV con IMPRESSION: - No acute intracranial abnormality. Chronic microangiopathy. - No acute osseous abnormality within the cervical spine. Advanced cervical spondylosis. There is central canal stenosis with potential mass effect on the cervical spinal cord at the C3-C4 and C5-C6 levels that can be correlated for clinical signs of cervical myelopathy. Independent Historian Clinical information obtained from an independent historian. History obtained from or confirmed by: Spouse ( who confirms history) External Record Review External record reviewed: Outpatient record Prescription Management I considered prescription management with: Pain Medication (Acetaminophen/ibuprofen) Chronic Conditions Patient?s care impacted by: Diabetes and Hypertension Critical Care Time Critical Care Time Critical Care Time: Yes Total Critical Care Time: 35 Attestation: I personally attest to this critical care time spent taking care of the patient exclusive of all other billable procedures was approximately 35 minutes including initial evaluation of patient, ordering tests, x-ray interpretation, medical consultation, documentation, re-evaluation. Discharge Plan Discharge Clinical Impression: Osteoarthritis of right hip, Cervical spondylosis Patient Disposition: Home, Self-Care Instructions: Osteoarthritis (ED) Additional Instructions: Follow-up with orthopedics regarding the arthritis in your right hip due to chronic pain of the right lower extremity. Follow-up with primary care provider regarding the cervical spondylosis, this has been present on prior imaging, and appears relatively unchanged when compared to CT scan in June of 2022. You can take Tylenol 500 mg, 2 tablets (1,000mg) every 4-6 hours as needed for pain, but not to exceed 3 doses daily (3,000mg). Return back to emergency department any new or worsening symptoms or concerns. ? Prescriptions: No Action multivitamin-iron (hematinic) Tablet 1 tab PO DAILY cholecalciferol (vitamin D3) [Vitamin D3] 25 mcg (1,000 unit) Capsule 25 mcg PO DAILY lisinopril 2.5 mg tablet 1 tab PO DAILY pantoprazole [Protonix] 40 mg tablet,delayed release (DR/EC) 40 mg PO DAILY Qty: 30 0RF ondansetron 4 mg tablet,disintegrating 4 mg PO Q6-8H PRN (Reason: nausea and vomiting) Qty: 20 0RF bupropion HCl 300 mg tablet extended release 24 hr 300 mg PO DAILY aripiprazole 20 mg tablet 20 mg PO BEDTIME lorazepam 0.5 mg tablet 0.5 mg PO BID metoprolol tartrate 25 mg tablet 25 mg PO BID atorvastatin 40 mg tablet 40 mg PO DAILY metformin 500 mg tablet 500 mg PO DAILY Xarelto 20 mg tablet 20 mg PO BEDTIME escitalopram oxalate 10 mg tablet PO cephalexin 500 mg capsule 500 mg PO Q6H 10 Days Qty: 40 0RF Referrals: Grayson Butts MD [Primary Care Provider] - Interventions: ED Discharge Assessment Last Done: 10/26/23 18:24 Discharge Date/Time: 10/26/23 18:25
[2023-10-26 13:32] VITALS: BP 123/54; PULSE 72; RESP 16; TEMP 36.3; O2SAT 97; BMI 34.0
[2023-10-26 16:10] VITALS: BP 125/41; PULSE 69; RESP 16; TEMP 36.7; O2SAT 95
== END 2023-10-26 18:25 | disposition home or self-care (01) ==
PROVIDERS: Emergency Provider Student in an Organized Health Care Education/Training Program; PCP Internal Medicine
DX: M16.11 Unilateral primary osteoarthritis, right hip (principal); M47.812 Spondylosis without myelopathy or radiculopathy, cervical region; R51.9 Headache, unspecified; M54.2 Cervicalgia
CPT/HCPCS: 70450; 72125; 73502; 99284

== ENCOUNTER 2023-12-25 15:29 | Emergency (ER) | payer MEDICARE, MEDICAID, SELFPAY ==
--- NOTE | ~2023-12-25 | XR_ITS ---
EXAMINATION: XR CHEST CLINICAL INFORMATION: Pain. Cough. COMPARISON: Chest radiograph dated 11/17/2022 TECHNIQUE: Frontal view of the chest was obtained. FINDINGS: Heart size is normal. There is no consolidation within either lung. There is no pleural effusion or pneumothorax. There is no acute osseous abnormality. XR/XR chest 1V IMPRESSION: Stable appearance of the heart and lungs. No active disease.
--- NOTE | ~2023-12-25 | CT_ITS ---
EXAMINATION: CT CHEST WITH CONTRAST CLINICAL INFORMATION: Fall. Pain. Bruising COMPARISON: Previous chest x-ray from earlier the same day TECHNIQUE: Multidetector volumetric CT imaging of the chest was obtained after the administration of 85 mL of Omnipaque 350 intravenous contrast without immediate adverse reactions. Axial MIP volume rendering provided. Sagittal and coronal reformatted images were obtained. This CT examination was performed using dose optimization techniques as appropriate, variously including the following: *Automated exposure control *Adjustment of mA and/or kV according to patient size (this includes techniques or standardized protocols for targeted exams where dose is matched to indication/reason for exam; i.e. 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 Confluent nodular opacities in the left lower lobe, question contusion versus pneumonia. Several small peribronchial nodules suggestive of airways disease in the right lower lobe. MEDIASTINUM: Enlarged heart. Mild coronary artery calcification. No pericardial effusion. Normal caliber thoracic aorta. No enlarged hilar or mediastinal lymph nodes. PLEURA: There is no pleural effusion. No pleural mass or thickening. No pneumothorax. AXILLA: No enlarged axillary lymph nodes. No chest wall mass. Stranding of the fat of the left lateral lower chest and prominence of the left lateral chest wall muscles. UPPER ABDOMEN: 1.6 cm splenic artery aneurysm OSSEOUS STRUCTURES: No fracture seen. Degenerative changes of the spine. CT/CT chest w IV con IMPRESSION: Limited due to artifact from respiratory motion. Left lower lobe pneumonia versus contusion. Mild airways disease in the right lower lobe. Fat stranding and prominent muscles of the left lateral chest wall. No rib fracture. Enlarged heart. 1.6 cm splenic artery aneurysm. Fleischner guidelines were followed.
--- NOTE | ~2023-12-25 | CT_ITS ---
EXAMINATION: CT HEAD WITHOUT CONTRAST CT CERVICAL SPINE WITHOUT CONTRAST CLINICAL INFORMATION: Fall, poor historian. COMPARISON: CT head and cervical spine 10/26/2023. TECHNIQUE: Contiguous axial imaging was performed from the skull base to vertex without intravenous administration of contrast. Contiguous axial imaging was performed from the upper chest through the skull base without intravenous administration of contrast. Coronal and sagittal reformats were obtained at the acquisition workstation. This CT examination was performed using dose optimization techniques as appropriate, variously including the following: *Automated exposure control *Adjustment of mA and/or kV according to patient size (this includes techniques or standardized protocols for targeted exams where dose is matched to indication/reason for exam; i.e. extremities or head) *Use of iterative reconstruction technique DLP: 812 and 576 mGy-cm FINDINGS: Head: There is no evidence of acute intracranial hemorrhage or edematous territorial infarction. Scattered hypoattenuation in the periventricular and deep white matter are consistent with moderate microangiopathy. Ojeda-white matter differentiation is preserved. Proportional prominence of the ventricles and sulcal spaces. No evidence for obstructive hydrocephalus. No abnormal mass effect or midline shift. No extra-axial fluid collections. No acute soft tissue or osseous abnormalities. The mastoid air cells and paranasal sinuses are clear. Cervical Spine: The atlantooccipital and atlantoaxial articulations remain well aligned. No evidence of acute compression deformity or traumatic subluxation. Again noted at and cervical spondylosis with central canal stenosis and potential mass effect on the cervical spinal cord at the C3-C4 and C5-C6 levels. There is no prevertebral soft tissue swelling. The thyroid gland and remaining cervical soft tissues are normal in appearance. Possible 8 mm groundglass nodule in the left apex (12:311), suboptimally assessed due to motion. CT/CT cervical spine wo IV con IMPRESSION: 1. No acute intracranial pathology. 2. No acute cervical spinal fractures or malalignment. 3. Cervical spondylosis with central canal stenosis and potential mass effect on the cervical spinal cord at the C3-C4 and C5-C6 levels. As stated before, recommend clinical correlation for signs of cervical myelopathy. 4. Possible 8 mm groundglass nodule in the left apex, suboptimally assessed due to motion. According to the UPDATED 2017 Fleischner Society recommendations, the advised follow-up imaging for a single pure ground-glass nodule measuring between 6 and 10 mm is: CT at 6 to 12 months to confirm persistence, then CT every 2 years until 5 years if it persists.
--- NOTE | 2023-12-25 15:34 | ED_ITS ---
HPI - General Adult General Chief complaint: Upper Respiratory Symptoms Stated complaint: chest phlegm, sob, cough Time Seen by Provider: 12/25/23 19:33 Source: patient and family Mode of arrival: ambulatory Limitations: no limitations History of Present Illness HPI narrative: Patient comes to the emergency room initially complaining of URI symptoms for couple of days. No fever, per family coughing more than usual. According to the family, patient has not had any fever. 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 Needs help from his daughter to communicate. At this time, patient states that he feels well, no chest pain or shortness of breath. Patient's family at bedside, they also state that the patient has been more quiet than usual. They noted that the patient ate approximately 10 to 15 bannanas in couple of days and they were concerned about his potassium levels. To the family's knowledge, patient has never had hyperkalemia. Related Data Home Medications ?Medication ?Instructions ?Recorded ?Confirmed aripiprazole 20 mg tablet 20 mg PO BEDTIME 07/11/21 09/02/21 atorvastatin 40 mg tablet 40 mg PO DAILY 07/11/21 09/02/21 bupropion HCl 300 mg 24 hr tablet, 300 mg PO DAILY 07/11/21 09/02/21 extended release lorazepam 0.5 mg tablet 0.5 mg PO BID 07/11/21 09/02/21 metformin 500 mg tablet 500 mg PO DAILY 07/11/21 09/02/21 metoprolol tartrate 25 mg tablet 25 mg PO BID 07/11/21 09/02/21 rivaroxaban 20 mg tablet (Xarelto) 20 mg PO BEDTIME 07/11/21 09/02/21 cholecalciferol (vitamin D3) 25 25 mcg PO DAILY 09/02/21 09/02/21 mcg (1,000 unit) capsule (Vitamin D3) lisinopril 2.5 mg tablet 1 tab PO DAILY 09/02/21 09/02/21 multivitamin-iron (hematinic) 1 tab PO DAILY 09/02/21 09/02/21 escitalopram oxalate 10 mg tablet mg PO 01/24/23 Previous Rx's ?Medication ?Instructions ?Recorded ondansetron 4 mg disintegrating 4 mg PO Q6-8H PRN nausea and 01/13/23 tablet vomiting #20 tabs pantoprazole 40 mg tablet,delayed 40 mg PO DAILY #30 tabs 05/09/23 release (Protonix) cephalexin 500 mg capsule 500 mg PO Q6H 10 days #40 caps 01/24/23 azithromycin 250 mg tablet 250 mg PO DAILY 5 days #5 tabs 12/25/23 Allergies Allergy/AdvReac Type Severity Reaction Status Date / Time oxycodone AdvReac Hypotension Verified 12/25/23 15:55 Review of Systems 2 Review of Systems: Constitutional : No Weight loss, No Fever, No Chills, No Night Sweats, No Fatigue, No Malaise ENT/Mouth : No Hearing loss, No Ear Pain, No Nasal Congestion, No Sinus Pain, No Hoarseness, No sore throat, No Rhinorrhea, No Swallowing Difficulty Eyes: No Eye Pain, No Swelling, No Redness, No Foreign Body, No Discharge, No Vision Changes Cardiovascular : No Chest Pain, No SOB, No Dyspnea on Exertion, No Orthopnea, No Edema, No Palpitations Respiratory : Complaining of cough Gastrointestinal : No Nausea, No Vomiting, No Diarrhea, No Constipation, No abdominal Pain, No Hematochezia, No Melena Genitourinary : no irregular bleeding, No Dysuria, No Urinary Frequency, No Hematuria, No Urinary Incontinence, No Urgency, No Flank Pain, No Urinary Flow Changes, No Hesitancy Musculoskeletal : No joint pain, No Myalgias, No Joint Swelling Skin : No Skin Lesions, No rash Neuro : No Weakness, No Numbness, No Paresthesias, No Loss of Consciousness, No Dizziness, No Headache Psych : No Anxiety/Panic, No Depression, No SI/HI/AH/VH, No Social Issues, Heme/Lymph: No Bruising, No Bleeding,No Lymphadenopathy Endocrine : No Polyuria, No Polydipsia, No Temperature Intolerance FOR[facility]LY [facility] Past Medical History Medical History HTN (hypertension) HLD (hyperlipidemia) Acidosis, lactic Lower respiratory infection (e.g., bronchitis, pneumonia, pneumonitis, pulmonitis) Diabetes type 2, controlled Afib Schizophrenia Surgical History History of total right knee replacement (TKR) Social History Social History Household Members: Spouse Housing: House Unable to assess alcohol history related to: Unknown Alcohol intake: unknown Patient Tobacco Use Status: Never used Tobacco e-Cigarette/Vaping Use: Never Used Advance Directives: No Advance Directives Information Provided: No service: No Current occupational status: retired Physical Exam ED Vital Signs: Vital Signs - 24 hr 12/25/23 15:51 12/25/23 19:21 Temperature 98.4 F 98.0 F Pulse Rate 73 70 Respiratory Rate 18 18 Blood Pressure 124/54 L 154/83 H Pulse Oximetry 97 97 Oxygen Delivery Method Room Air Room Air BMI result Body Mass Index 315.7 Const Other: Appearance: Alert. Oriented X3. No acute distress. Eyes: Pupils equal, round and reactive to light. ENT: Pharynx normal. Neck: Normal inspection. Neck supple. No lymph nodes noted. No crepitus CVS: Normal heart rate and rhythm. Pulses normal. Normal S1 and S2 Respiratory: No respiratory distress. Breath sounds normal. No Wheezing. No rales Abdomen: Soft and nontender. No rigidity. No distention. Skin: Skin warm and dry. Normal skin color. Normal skin turgor. Extremities: No lower extremity edema. No Lacerations. No Rash Neuro: Oriented X 3. No motor deficit. No sensory deficit. Moving all extremities. No slurred speech. CN 2 through 12 grossly intact Psych: calm, cooperative, normal affect Course Course Course Narrative: This is an RME: Additional HPI, ROS, PE not included below will be deferred to primary provider. 73 yo m presents with URI symptoms X2 days. No sick contacts. Denies chest pain, shortness of breath, nauseas, vomiting. Plan- viral testing Medications Administered Discontinued Medications Generic Name Dose Route Start Last Admin Trade Name Freq PRN Reason Stop Dose Admin Iohexol 85 ml 12/25/23 21:33 12/25/23 21:33 Iohexol 350 Mg/Ml 100 Ml Infus..Btl IV 12/25/23 21:34 85 ml ONCE ONE Administration Medical Decision Making Medical Decision Making MDM Narrative: -my interpretation of labs: Normal potassium. EKG does not show peaked T-waves. Urinalysis negative for UTI, serology negative for influenza RSV and COVID -my interpretation of EKG: Normal sinus rhythm, left bundle branch block, QTC 531 -my interpretation of chest x-ray, left lower lobe pneumonia. Radiology report: Possible contusion versus pneumonia. -given patient's history of a recent fall, being on Eliquis, and having a large ecchymosis the left side of the chest, this is likely a pulmonary contusion. Patient's oxygen saturation has been in the high 90s even with ambulation. Patient has no pain. Empirically, patient will be treated with antibiotics to prevent pneumonia Differential Diagnosis Differential Diagnoses: The differential diagnosis associated with the presentation includes (Viral URI, pneumonia, pulmonary contusion, active extravasation, UTI) Admission/Observation Consideration of admission/observation: Escalation of care including admission/observation considered (Given patient's past medical history and presentation, admission was considered) Lab Data MDM Lab Attestation statement: I reviewed the patient's lab results. 12/25/23 20:03 12/25/23 20:03 Labs: Lab Results 12/25/23 12/25/23 12/25/23 Range/Units 16:11 18:51 20:03 WBC 4.2 L (4.8-10.8) X10*3/uL RBC 3.69 L (4.60-5.80) X10*6/uL Hgb 10.4 L (14.0-18.0) g/dl Hct 31.4 L (42.0-52.0) % MCV 85.1 (80.0-98.0) fL MCH 28.2 (27.0-33.0) pg MCHC 33.1 (31.0-36.0) g/dl RDW 14.3 (11.0-16.0) % Plt Count 138 L (160-400) X10*3/uL MPV 9.4 (9.4-12.4) fL Immature Gran % (Auto) 0.5 H (0.0-0.4) % Neut % (Auto) 55.2 (45-73) % Lymph % (Auto) 31.1 (20-40) % Duchesne % (Auto) 8.0 (2-11) % Eos % (Auto) 5.0 H (0-4) % Baso % (Auto) 0.2 (0-2) % Lymph # (Auto) 1.3 (1.2-4.9) X10*3/uL Duchesne # (Auto) 0.3 (0.1-1.2) X10*3/uL Eos # (Auto) 0.2 (0.0-0.4) X10*3/uL Baso # (Auto) 0.0 (0.0-0.2) X10*3/uL Abs Immat Gran (auto) 0.02 (0.00-0.03) X10*3/uL Absolute Neuts (auto) 2.3 (2.0-8.3) x10*3/uL Absolute Nucleated RBC 0.000 (0.0-0.012) X10*3/uL Nucleated RBC % (auto) 0.0 (0.0-0.2) /100WBC Hold Blue Top SEE NOTE Sodium 138 (135-145) mmol/L Potassium 4.9 (3.3-5.1) mmol/L Chloride 108 (96-108) mmol/L Carbon Dioxide 21 L (22-29) mmol/L Anion Gap 14 (12-20) BUN 29 H (9-16) mg/dL Creatinine 1.13 (0.5-1.4) mg/dL Estim Creat Clear Calc 401.9 Estimated GFR > 60 Random Glucose 106 (60-115) mg/dL Calcium 9.5 (8.4-10.2) mg/dL Total Bilirubin 0.8 (0.0-1.0) mg/dL Direct Bilirubin 0.3 (0.0-0.5) mg/dL AST 38 H (5-37) U/L ALT 41 H (0-40) U/L Alkaline Phosphatase 88 (39-117) U/L Total Protein 7.0 (6.5-8.0) g/dL Albumin 3.8 (3.5-5.0) g/dL Urine Color Yellow Urine Appearance Clear Urine pH 5.0 (5.0-9.0) Ur Specific Comer 1.015 (1.005-1.025) Urine Protein Negative (Neg-Trace) mg/dL Urine Glucose (UA) Negative (Negative) mg/dL Urine Ketones Negative (Negative) mg/dL Urine Blood Negative (Negative) Urine Nitrite Negative (Negative) Ur Leukocyte Esterase Negative (Negative) Influenza Type A (PCR) NEGATIVE (Negative) Influenza Type B (PCR) NEGATIVE (Negative) RSV RNA Qual (PCR) NEGATIVE (Negative) SARS-CoV-2 RNA (RT-PCR) NEGATIVE (Negative) Independent Interpretation I performed an independent interpretation of an: EKG and CT Scan Radiology Impression Discussion of test interpretation with radiology: I have reviewed the radiologist's reading. Radiologist Impression: LUNGS: Evaluation of the lungs limited due to artifact from respiratory motion. Confluent nodular opacities in the left lower lobe, question contusion versus pneumonia. Several small peribronchial nodules suggestive of airways disease in the right lower lobe. MEDIASTINUM: Enlarged heart. Mild coronary artery calcification. No pericardial effusion. Normal caliber thoracic aorta. No enlarged hilar or mediastinal lymph nodes. PLEURA: There is no pleural effusion. No pleural mass or thickening. No pneumothorax. AXILLA: No enlarged axillary lymph nodes. No chest wall mass. Stranding of the fat of the left lateral lower chest and prominence of the left lateral chest wall muscles. UPPER ABDOMEN: 1.6 cm splenic artery aneurysm OSSEOUS STRUCTURES: No fracture seen. Degenerative changes of the spine. CT/CT chest w IV con IMPRESSION: Limited due to artifact from respiratory motion. Left lower lobe pneumonia versus contusion. Mild airways disease in the right lower lobe. Fat stranding and prominent muscles of the left lateral chest wall. No rib fracture. Enlarged heart. 1.6 cm splenic artery aneurysm. Fleischner guidelines were followed. FINDINGS: Head: There is no evidence of acute intracranial hemorrhage or edematous territorial infarction. Scattered hypoattenuation in the periventricular and deep white matter are consistent with moderate microangiopathy. Ojeda-white matter differentiation is preserved. Proportional prominence of the ventricles and sulcal spaces. No evidence for obstructive hydrocephalus. No abnormal mass effect or midline shift. No extra-axial fluid collections. No acute soft tissue or osseous abnormalities. The mastoid air cells and paranasal sinuses are clear. Cervical Spine: The atlantooccipital and atlantoaxial articulations remain well aligned. No evidence of acute compression deformity or traumatic subluxation. Again noted at and cervical spondylosis with central canal stenosis and potential mass effect on the cervical spinal cord at the C3-C4 and C5-C6 levels. There is no prevertebral soft tissue swelling. The thyroid gland and remaining cervical soft tissues are normal in appearance. Possible 8 mm groundglass nodule in the left apex (12:311), suboptimally assessed due to motion. CT/CT head/brain wo IV con IMPRESSION: 1. No acute intracranial pathology. 2. No acute cervical spinal fractures or malalignment. 3. Cervical spondylosis with central canal stenosis and potential mass effect on the cervical spinal cord at the C3-C4 and C5-C6 levels. As stated before, recommend clinical correlation for signs of cervical myelopathy. 4. Possible 8 mm groundglass nodule in the left apex, suboptimally assessed due to motion. According to the UPDATED 2017 Fleischner Society recommendations, the advised follow-up imaging for a single pure ground-glass nodule measuring between 6 and 10 mm is: CT at 6 to 12 months to confirm persistence, then CT every 2 years until 5 years if it persists. Independent Historian Clinical information obtained from an independent historian. History obtained from or confirmed by: Spouse (Patient's over the phone) and Other (Patient's daughter) Discharge Plan Discharge Clinical Impression: Upper respiratory infection, viral, Contusion of left lung, Chest wall hematoma Patient Disposition: Home, Self-Care Instructions: Upper Respiratory Infection (ED), Pulmonary Contusion (ED), Contusion in Adults (ED) Additional Instructions: Please follow-up with your primary care physician tomorrow. If you have any worsening or new symptoms, please return to the emergency room or call 911 Prescriptions: New azithromycin 250 mg tablet 250 mg PO DAILY 5 Days Qty: 5 0RF No Action multivitamin-iron (hematinic) Tablet 1 tab PO DAILY cholecalciferol (vitamin D3) [Vitamin D3] 25 mcg (1,000 unit) Capsule 25 mcg PO DAILY lisinopril 2.5 mg tablet 1 tab PO DAILY pantoprazole [Protonix] 40 mg tablet,delayed release (DR/EC) 40 mg PO DAILY Qty: 30 0RF ondansetron 4 mg tablet,disintegrating 4 mg PO Q6-8H PRN (Reason: nausea and vomiting) Qty: 20 0RF bupropion HCl 300 mg tablet extended release 24 hr 300 mg PO DAILY aripiprazole 20 mg tablet 20 mg PO BEDTIME lorazepam 0.5 mg tablet 0.5 mg PO BID metoprolol tartrate 25 mg tablet 25 mg PO BID atorvastatin 40 mg tablet 40 mg PO DAILY metformin 500 mg tablet 500 mg PO DAILY Xarelto 20 mg tablet 20 mg PO BEDTIME escitalopram oxalate 10 mg tablet PO cephalexin 500 mg capsule 500 mg PO Q6H 10 Days Qty: 40 0RF Print Language: Romanian
[2023-12-25 15:51] VITALS: BP 124/54; PULSE 73; RESP 18; TEMP 36.9; O2SAT 97; BMI 315.7
[2023-12-25 16:56] LABS: Influenza A PCR NEGATIVE (Negative); Influenza B PCR NEGATIVE (Negative); Resp Syncy Virus RNA Qual PCR NEGATIVE (Negative); SARS COV2 PCR INHOUSE NEGATIVE (Negative)
--- NOTE | 2023-12-25 18:48 | PC.NURSE ---
pt urine foul smelling. to send urine
[2023-12-25 18:58] LABS: Appearance Urine Clear; Color Urine Yellow; Glucose Urine UA Negative (Negative); Leukocyte Esterase Urine Negative (Negative); Nitrite Urine Negative (Negative); Specific Gravity - Urine 1.015 (1.005-1.025); Urine Blood Negative (Negative); Urine Ketones Negative (Negative); Urine Protein Negative (Neg-Trace)
[2023-12-25 19:21] VITALS: BP 154/83; PULSE 70; RESP 18; TEMP 36.7; O2SAT 97
--- NOTE | 2023-12-25 19:55 | ECG_ITS ---
Test Reason : hyperkalemia Blood Pressure : / mmHG Vent. Rate : 068 BPM Atrial Rate : 068 BPM P-R Int : 170 ms QRS Dur : 162 ms QT Int : 500 ms P-R-T Axes : 053 -27 086 degrees QTc Int : 531 ms Normal sinus rhythm Left bundle branch block Abnormal ECG When compared with ECG of 17-NOV-2022 20:09, Left bundle branch block is now Present Referred By: Amelia Hendrickson Electronically Signed By:GALINA BANKS
[2023-12-25 20:15] LABS: MANUAL DIFF FLAG NO
[2023-12-25 20:21] LABS: Basophils Percent Auto 0.2 % (0-2); Eosinophils Absolute Auto 0.2 X10*3/uL (0.0-0.4); Hematocrit 31.4 % (42.0-52.0); Hemoglobin 10.4 g/dl (14.0-18.0); Imm Gran Abs Auto 0.02 X10*3/uL (0.00-0.03); Imm Gran Pct Auto 0.5 % (0.0-0.4); Lymphocytes Absolute Auto 1.3 X10*3/uL (1.2-4.9); Lymphocytes Percent Auto 31.1 % (20-40); Mean Corpuscular HGB Conc 33.1 g/dl (31.0-36.0); Mean Corpuscular Hemoglobin 28.2 pg (27.0-33.0); Mean Corpuscular Volume 85.1 fL (80.0-98.0); Mean Platelet Volume 9.4 fL (9.4-12.4); Monocytes Absolute Auto 0.3 X10*3/uL (0.1-1.2); Neutrophils Absolute Auto 2.3 x10*3/uL (2.0-8.3); Neutrophils Percent Auto 55.2 % (45-73); Platelet Count 138 X10*3/uL (160-400); Red Blood Count 3.69 X10*6/uL (4.60-5.80); Red Cell Distribution Width 14.3 % (11.0-16.0); White Blood Count 4.2 X10*3/uL (4.8-10.8)
[2023-12-25 20:32] LABS: Alanine Aminotransferase 41 U/L (0-40); Albumin Level 3.8 g/dL (3.5-5.0); Alkaline Phosphatase 88 U/L (39-117); Anion Gap 14 (12-20); Aspartate Amino Transferase 38 U/L (5-37); Bilirubin Direct 0.3 mg/dL (0.0-0.5); Bilirubin Total 0.8 mg/dL (0.0-1.0); Blood Urea Nitrogen 29 mg/dL (9-16); Calcium 9.5 mg/dL (8.4-10.2); Carbon Dioxide 21 mmol/L (22-29); Chloride 108 mmol/L (96-108); Creatinine Clr Calc Pharmacy 401.9; Estimated Glomerular Filt Rate > 60; Glucose Random 106 mg/dL (60-115); Potassium 4.9 mmol/L (3.3-5.1); Sodium 138 mmol/L (135-145)
--- NOTE | 2023-12-25 20:32 | PC.NURSE ---
pt skin assessed, family reported pt fell 2 days go, pt has a large purple bruise under his left upper axilla that radiates to left upper back and lateral upper thigh. denies any pain
[2023-12-25] MEDS: iohexoL 350 MG/ML 100 ML INFUS..BTL 85 ML IV (21:33)
[2023-12-25 22:58] VITALS: BP 141/66; PULSE 72; RESP 16; TEMP 36.7; O2SAT 99
[2023-12-25 23:22] VITALS: BP 158/54; PULSE 66; RESP 16; TEMP 36.7; O2SAT 96
== END 2023-12-25 23:24 | disposition home or self-care (01) ==
PROVIDERS: Physician Assistant; Emergency Provider Emergency Medicine; PCP Internal Medicine
DX: J06.9 Acute upper respiratory infection, unspecified (principal); S27.321A Contusion of lung, unilateral, initial encounter; S20.212A Contusion of left front wall of thorax, initial encounter; I10 Essential (primary) hypertension; E11.9 Type 2 diabetes mellitus without complications; I48.91 Unspecified atrial fibrillation; Z79.01 Long term (current) use of anticoagulants; W19.XXXA Unspecified fall, initial encounter; Y93.9 Activity, unspecified; Y92.9 Unspecified place or not applicable; Y99.9 Unspecified external cause status
CPT/HCPCS: 0241U; 36415; 70450; 71045; 71260; 72125; 80048; 80076; 81003; 85025; 93005; 99283; 99284; Q9967

== ENCOUNTER → 2023-12-25 19:55 | Outpatient (BNV) | payer MEDICARE, MEDICAID, SELFPAY | PROVIDERS: Emergency Provider Emergency Medicine; PCP Internal Medicine; Visit Provider Internal Medicine | DX: I44.7 Left bundle-branch block, unspecified (principal) | CPT/HCPCS: 93010 ==

== ENCOUNTER 2024-03-28 19:54 | Emergency (ER) | payer MEDICARE, MEDICAID, SELFPAY ==
[2024-03-28 19:56] VITALS: BP 127/58; PULSE 70; RESP 19; TEMP 36.3; O2SAT 96; BMI 32.5
--- NOTE | 2024-03-28 20:00 | ED_ITS ---
HPI - Skin/Abscess/Foreign Bdy General Chief complaint: Skin/Abscess/Foreign Body Stated complaint: Rash on abdomen to groin Time Seen by Provider: 03/29/24 00:05 Source: patient and family Mode of arrival: wheelchair Limitations: no limitations History of Present Illness HPI narrative: Patient is a 73-year-old male who presents to the emergency department for evaluation with his . He is incontinent of urine, very sedentary. reports that yesterday she did not notice a rash. However, when [employer] MANAGER came to the home this morning to shower patient, who was noted to be itching his lower abdominal folds and groin, the [employer] noticed a red beefy rash in call this to the 's attention. Patient denies any itch or pain to the area. Denies any swelling to the genitals or pain. Patient is a diabetic but reports his blood sugars have been under good control recently. Related Data Home Medications ?Medication ?Instructions ?Recorded ?Confirmed aripiprazole 20 mg tablet 20 mg PO BEDTIME 07/11/21 09/02/21 atorvastatin 40 mg tablet 40 mg PO DAILY 07/11/21 09/02/21 bupropion HCl 300 mg 24 hr tablet, 300 mg PO DAILY 07/11/21 09/02/21 extended release lorazepam 0.5 mg tablet 0.5 mg PO BID 07/11/21 09/02/21 metformin 500 mg tablet 500 mg PO DAILY 07/11/21 09/02/21 metoprolol tartrate 25 mg tablet 25 mg PO BID 07/11/21 09/02/21 rivaroxaban 20 mg tablet (Xarelto) 20 mg PO BEDTIME 07/11/21 09/02/21 cholecalciferol (vitamin D3) 25 25 mcg PO DAILY 09/02/21 09/02/21 mcg (1,000 unit) capsule (Vitamin D3) lisinopril 2.5 mg tablet 1 tab PO DAILY 09/02/21 09/02/21 multivitamin-iron (hematinic) 1 tab PO DAILY 09/02/21 09/02/21 escitalopram oxalate 10 mg tablet mg PO 01/24/23 Previous Rx's ?Medication ?Instructions ?Recorded ondansetron 4 mg disintegrating 4 mg PO Q6-8H PRN nausea and 01/13/23 tablet vomiting #20 tabs pantoprazole 40 mg tablet,delayed 40 mg PO DAILY #30 tabs 05/09/23 release (Protonix) cephalexin 500 mg capsule 500 mg PO Q6H 10 days #40 caps 01/24/23 azithromycin 250 mg tablet 250 mg PO DAILY 5 days #5 tabs 12/25/23 nystatin 100,000 unit/gram topical 1 appl topical TID #30 grams 03/29/24 cream Allergies Allergy/AdvReac Type Severity Reaction Status Date / Time oxycodone AdvReac Hypotension Verified 03/28/24 20:04 Review of Systems Review of Systems: Yes all other systems are reviewed and are negative [facility] Past Medical History Attestation statement: The following information was validated with the patient. Source: old records reviewed Medical History HTN (hypertension) HLD (hyperlipidemia) Acidosis, lactic Lower respiratory infection (e.g., bronchitis, pneumonia, pneumonitis, pulmonitis) Diabetes type 2, controlled Afib Schizophrenia Surgical History History of total right knee replacement (TKR) Social History Social History Household Members: Spouse Housing: House Unable to assess alcohol history related to: Unknown Alcohol intake: unknown Patient Tobacco Use Status: Never used Tobacco e-Cigarette/Vaping Use: Never Used Advance Directives: No Advance Directives Information Provided: No Do you have a plan to hurt others: No Plan service: No Current occupational status: retired Physical Exam Vital Signs: Vital Signs: Last Vital Signs Temp 97.4 F 03/28/24 19:56 Pulse 70 03/28/24 19:56 Resp 19 03/28/24 19:56 BP 127/58 L 03/28/24 19:56 Pulse Ox 96 03/28/24 19:56 O2 Del Method Room Air 03/28/24 19:56 BMI result Body Mass Index 32.5 Appearance: Alert.?Oriented to person, place and time. No acute distress.?Normal affect. CVS: Heart sounds normal. Normal heart rate and rhythm.? Pulses normal.?? Respiratory: No respiratory distress.? Lung sounds clear to auscultation bilaterally?? Abdomen: Soft and non-tender. Normoactive bowel sounds. ? Skin: Skin warm and dry.? Normal skin color.? Moist erythematous rash to the bilateral groin folds and the left lower abdominal fold, well demarcated edges with satellite lesions. No purulence. No scrotal swelling. Neuro: Moves all extremities spontaneously. Sensation intact bilaterally. Course Course Course Narrative: This is an RME: Additional HPI, ROS, PE not included below will be deferred to primary provider. RME assessment and note performed by: Mariia Monroy PA-C This is a [id number] who presents emergency department for evaluation of groin rash and abdominal rash. Patient is a poor historian however states that they noticed the area this morning. They applied nystatin cream to the area which has not provided any relief. Medical Decision Making Medical Decision Making MDM Narrative: Patient is a 73 year old male who presents to the emergency department for evaluation of a rash to his lower abdominal and groin folds consistent with a candidal intertrigo. Etiology of this rash was discussed at length with patient and his , we discussed treatment including cleansing of the area, thorough drying, application of nystatin cream in use of gauze. Examination is not consistent with Waylon's gangrene. Prescription for nystatin was sent to pharmacy. Advised close outpatient follow-up with primary care provider if this does not improve. Additionally, if it worsens he is to have this re-evaluated. Differential Diagnosis Differential Diagnoses: The differential diagnosis associated with the presentation includes (See narrative above) Independent Historian Clinical information obtained from an independent historian. History obtained from or confirmed by: Spouse Chronic Conditions Patient?s care impacted by: Diabetes Discharge Plan Discharge Clinical Impression: Candidal intertrigo Patient Disposition: Home, Self-Care Instructions: Skin Yeast Infection (ED) Additional Instructions: As discussed, it is very important that you clean the area twice daily with warm water and non scented soap. Make sure that the area is thoroughly dried. If moisture builds up this may only worsen the current rash. Apply the nystatin cream as instructed. Use 4x4s or ABD pads to place in between the skin folds to prevent the skin from making direct contact which will further worsen the symptoms and allow for more moisture to buildup. Follow-up with primary care provider. Return to emergency department any new or worsening symptoms or concerns Prescriptions: New nystatin 100,000 unit/gram cream 1 appl topical TID Qty: 30 0RF No Action multivitamin-iron (hematinic) Tablet 1 tab PO DAILY cholecalciferol (vitamin D3) [Vitamin D3] 25 mcg (1,000 unit) Capsule 25 mcg PO DAILY lisinopril 2.5 mg tablet 1 tab PO DAILY azithromycin 250 mg tablet 250 mg PO DAILY 5 Days Qty: 5 0RF pantoprazole [Protonix] 40 mg tablet,delayed release (DR/EC) 40 mg PO DAILY Qty: 30 0RF ondansetron 4 mg tablet,disintegrating 4 mg PO Q6-8H PRN (Reason: nausea and vomiting) Qty: 20 0RF bupropion HCl 300 mg tablet extended release 24 hr 300 mg PO DAILY aripiprazole 20 mg tablet 20 mg PO BEDTIME lorazepam 0.5 mg tablet 0.5 mg PO BID metoprolol tartrate 25 mg tablet 25 mg PO BID atorvastatin 40 mg tablet 40 mg PO DAILY metformin 500 mg tablet 500 mg PO DAILY Xarelto 20 mg tablet 20 mg PO BEDTIME escitalopram oxalate 10 mg tablet PO cephalexin 500 mg capsule 500 mg PO Q6H 10 Days Qty: 40 0RF Referrals: Grayson Butts MD [Primary Care Provider] - Print Language: Kiswahili
--- NOTE | 2024-03-28 22:10 | PC.NURSE ---
pt not present in the [facility] when called at 2139 and 2149
[2024-03-29 00:52] VITALS: BP 129/55; PULSE 52; RESP 17; TEMP 36.5; O2SAT 95
[2024-03-29 00:53] VITALS: BP 129/55; PULSE 52; RESP 17; TEMP 36.5; O2SAT 95
== END 2024-03-29 00:55 | disposition home or self-care (01) ==
PROVIDERS: Emergency Provider Internal Medicine; PCP Internal Medicine
DX: B37.2 Candidiasis of skin and nail (principal); R32 Unspecified urinary incontinence; Z79.899 Other long term (current) drug therapy
CPT/HCPCS: 99283; 99284